=== PATIENT | female | born 1975 | race Caucasian/White ===

== ENCOUNTER 2017-03-21 18:08 | Inpatient (IN) | payer MEDICAID, OTHER ==
[~2017-03-21] VITALS: Ht 162.6 cm; Wt 82.1 kg
[~2017-03-21 18:08] MED LIST: RISP3 PO; RISPC50 IM
[2017-03-21 18:47] LABS: BASOPHILS % (AUTO) 0.4 % (0.0-2.0); EOSINOPHILS % (AUTO) 1.9 % (1.0-6.0); HEMATOCRIT 39.9 % (36-46); HEMOGLOBIN 13.6 g/dL (12.0-16.0); LYMPHOCYTES # (AUTO) 2.5 K/uL (1.0-4.8); LYMPHOCYTES % (AUTO) 22.5 % (22.0-44.0); MEAN CORPUSCULAR HEMOGLOBIN 32.4 pg (26.0-34.0); MEAN CORPUSCULAR HGB CONC 33.9 G/dL (31.0-37.0); MEAN CORPUSCULAR VOLUME 96 fL (80-100); MONOCYTES # (AUTO) 0.8 K/uL (0.1-1.0); MONOCYTES % (AUTO) 7.4 % (2.0-9.0); NEUTROPHILS # (AUTO) 7.5 K/uL (1.8-7.7); NEUTROPHILS % (AUTO) 67.8 % (40.0-70.0); PLATELET COUNT (AUTO) 343 K/uL (150-450); RED BLOOD CELL COUNT(AUTO) 4.18 MIL/uL (4.00-5.20); RED CELL DISTRIBUTION WIDTH 12.3 % (11.5-14.5)
[2017-03-21 18:56] LABS: CARBON DIOXIDE 24 mmol/L (22-29); CHLORIDE 105 mmol/L (98-107); POTASSIUM 3.9 mmol/L (3.5-5.1); SODIUM SERUM 140 mmol/L (136-145)
[2017-03-21 18:57] LABS: ANION GAP 11 mmol/L (8-16); CALCIUM, TOTAL 8.5 mg/dL (8.8-10.5); CREATININE 0.79 mg/dL (0.60-1.30); GLOMERULAR FILTR. RATE CALC > 60 mL/min (>60); UREA NITROGEN, BLOOD 8 mg/dL (7-18)
[2017-03-21 19:03] LABS: ALANINE AMINOTRANSFERASE 21 U/L (12-78); ALBUMIN 3.6 g/dL (3.4-5.0); ASPARTATE AMINOTRANSFERASE 13 U/L (15-37); TOTAL PROTEIN, SERUM 7.5 g/dL (6.4-8.2)
[2017-03-21 19:16] LABS: BILIRUBIN,TOTAL 0.1 mg/dL (0.1-1.0)
[2017-03-21] MEDS ORDERED: MAG HYDROX/AL HYDROX/SIMETH ES 30 ML SUSPENSION UDCUP PO PRN (20:45)
[2017-03-21] MEDS ORDERED: HALOPERIDOL 5 MG TABLET PO PRN (20:45)
[2017-03-21] MEDS ORDERED: MAGNESIUM HYDROXIDE SUSPENSION 30 ML UDCUP PO PRN (20:45)
[2017-03-21 22:26] VITALS: BP 139/70
[2017-03-21] MEDS: LORazepam 2 MG TABLET PO PRN (22:51)
[2017-03-22 09:56] VITALS: BP 116/72
[2017-03-22 12:25] VITALS: BP 122/69
[2017-03-22] MEDS: ACETAMINOPHEN 325 MG TABLET PO PRN (12:25)
[2017-03-22] MEDS: LORazepam 2 MG TABLET PO PRN ×2 (12:25→21:07)
[2017-03-22 17:00] VITALS: BP 123/80
[2017-03-23] MEDS: LORazepam 2 MG TABLET PO PRN ×3 (07:53→20:00)
[2017-03-23 08:00] VITALS: BP 103/87
[2017-03-23] MEDS: ACETAMINOPHEN 325 MG TABLET PO PRN ×2 (08:00→13:46)
[2017-03-23] MEDS: RisperiDONE 3 MG TABLET PO SCH ×2 (08:29→16:37)
[2017-03-23 08:30] VITALS: BP 103/87
[2017-03-23 13:46] VITALS: BP 107/71
[2017-03-23 17:26] VITALS: BP 123/74
[2017-03-23] MEDS ORDERED: ONDANSETRON HCL 4 MG TABLET PO PRN (18:15)
[2017-03-24 08:02] VITALS: BP 94/64
[2017-03-24] MEDS: LORazepam 2 MG TABLET PO PRN ×3 (08:02→17:33)
[2017-03-24] MEDS: ESCITALOPRAM OXALATE 10 MG TABLET PO SCH (08:02)
[2017-03-24] MEDS: ACETAMINOPHEN 325 MG TABLET PO PRN ×2 (08:02→13:25)
[2017-03-24] MEDS: RisperiDONE 3 MG TABLET PO SCH ×2 (08:02→17:33)
[2017-03-24] MEDS ORDERED: RisperiDONE MICROSPHERES 50 MG/2 ML SYRINGE IM SCH (09:00)
[2017-03-24 13:25] VITALS: BP_SYST 92
[2017-03-24 18:30] VITALS: BP 96/79
[2017-03-25] MEDS: RisperiDONE 3 MG TABLET PO SCH ×2 (08:10→16:42)
[2017-03-25] MEDS: ESCITALOPRAM OXALATE 10 MG TABLET PO SCH (08:10)
[2017-03-25] MEDS: LORazepam 2 MG TABLET PO PRN ×2 (08:10→17:40)
[2017-03-25 08:11] VITALS: BP 112/65
[2017-03-25] MEDS: ACETAMINOPHEN 325 MG TABLET PO PRN ×2 (08:11→16:46)
[2017-03-25 09:11] VITALS: BP 105/70
[2017-03-25 16:46] VITALS: BP 125/80
[2017-03-25 17:07] VITALS: BP_SYST 118; BP_SYST 129; BP_DIAS 74; BP_DIAS 79
[2017-03-25] MEDS: ZOLPIDEM TARTRATE 10 MG TABLET PO PRN (20:14)
[2017-03-26] MEDS: RisperiDONE 3 MG TABLET PO SCH ×2 (09:11→16:12)
[2017-03-26] MEDS: ESCITALOPRAM OXALATE 10 MG TABLET PO SCH (09:13)
[2017-03-26 09:16] VITALS: BP 98/68
[2017-03-26] MEDS: ACETAMINOPHEN 325 MG TABLET PO PRN ×2 (09:16→17:45)
[2017-03-26] MEDS: LORazepam 2 MG TABLET PO PRN ×3 (09:54→20:14)
[2017-03-26 16:07] VITALS: BP 105/65
[2017-03-26 17:45] VITALS: BP 104/62
[2017-03-26] MEDS: ZOLPIDEM TARTRATE 10 MG TABLET PO PRN (21:11)
[2017-03-27] MEDS: RisperiDONE 3 MG TABLET PO SCH ×2 (08:55→16:17)
[2017-03-27] MEDS: ESCITALOPRAM OXALATE 10 MG TABLET PO SCH (08:55)
[2017-03-27] MEDS: LORazepam 2 MG TABLET PO PRN ×3 (08:56→23:47)
[2017-03-27 08:58] VITALS: BP 102/72
[2017-03-27] MEDS: ACETAMINOPHEN 325 MG TABLET PO PRN ×3 (08:58→23:46)
[2017-03-27 16:17] VITALS: BP 117/77
[2017-03-27] MEDS: ZOLPIDEM TARTRATE 10 MG TABLET PO PRN (20:28)
[2017-03-27 23:46] VITALS: BP 110/76
[2017-03-28] MEDS: RisperiDONE 3 MG TABLET PO SCH ×2 (09:03→16:23)
[2017-03-28] MEDS: ESCITALOPRAM OXALATE 10 MG TABLET PO SCH (09:03)
[2017-03-28 09:06] VITALS: BP 105/75
[2017-03-28] MEDS: ACETAMINOPHEN 325 MG TABLET PO PRN ×2 (09:06→18:25)
[2017-03-28] MEDS: LORazepam 2 MG TABLET PO PRN ×2 (09:06→16:23)
[2017-03-28 16:24] VITALS: BP 108/78
[2017-03-28 18:25] VITALS: BP 110/69
[2017-03-28 20:07] LABS: THYROID STIMULATING HORMONE 0.91 uIU/mL (0.36-3.74)
[2017-03-28] MEDS: ZOLPIDEM TARTRATE 10 MG TABLET PO PRN (20:13)
[2017-03-28 20:17] LABS: HEMOGLOBIN A1C 5.8 % (4.5-6.2)
[2017-03-29] MEDS: RisperiDONE 3 MG TABLET PO SCH ×2 (09:03→16:27)
[2017-03-29] MEDS: ESCITALOPRAM OXALATE 10 MG TABLET PO SCH (09:03)
[2017-03-29 09:04] VITALS: BP 110/67
[2017-03-29] MEDS: LORazepam 2 MG TABLET PO PRN ×2 (09:04→16:27)
[2017-03-29] MEDS: ACETAMINOPHEN 325 MG TABLET PO PRN (09:04)
[2017-03-29 16:58] VITALS: BP 112/62
[2017-03-29] MEDS: ZOLPIDEM TARTRATE 10 MG TABLET PO PRN (21:00)
[2017-03-30] MEDS: LORazepam 2 MG TABLET PO PRN ×2 (09:31→16:24)
[2017-03-30] MEDS: ESCITALOPRAM OXALATE 10 MG TABLET PO SCH (09:31)
[2017-03-30] MEDS: RisperiDONE 3 MG TABLET PO SCH ×2 (09:31→16:24)
[2017-03-30 09:32] VITALS: BP 107/58
[2017-03-30] MEDS: ACETAMINOPHEN 325 MG TABLET PO PRN (09:32)
[2017-03-30 16:22] VITALS: BP 104/65
[2017-03-31] MEDS: LORazepam 2 MG TABLET PO PRN ×2 (03:31→08:58)
[2017-03-31] MEDS ORDERED: ESCI10TA PO (08:54)
[2017-03-31] MEDS: RisperiDONE 3 MG TABLET PO SCH (08:57)
[2017-03-31] MEDS: ESCITALOPRAM OXALATE 10 MG TABLET PO SCH (08:57)
[2017-03-31 08:58] VITALS: BP 113/65
[2017-03-31] MEDS: ACETAMINOPHEN 325 MG TABLET PO PRN (08:58)
[2017-03-31 09:06] VITALS: BP 113/65
== END 2017-03-31 12:00 | disposition home or self-care (01) | DRG 750 ==
LOC: EMS 18:09 → 3EI 21:19
PROVIDERS: ADMIT Psychiatry & Neurology Psychiatry; ATTEND Psychiatry & Neurology Psychiatry
DX: F25.0 Schizoaffective disorder, bipolar type (principal); R45.851 Suicidal ideations; I47.1 Supraventricular tachycardia; E11.9 Type 2 diabetes mellitus without complications; E03.9 Hypothyroidism, unspecified; I34.1 Nonrheumatic mitral (valve) prolapse; S00.83XA Contusion of other part of head, initial encounter; Y04.2XXA Assault by strike against or bumped into by another person, initial encounter; F17.200 Nicotine dependence, unspecified, uncomplicated; R41.843 Psychomotor deficit; Z91.5 Personal history of self-harm; Y93.89 Activity, other specified; Y92.89 Other specified places as the place of occurrence of the external cause; Y99.8 Other external cause status; Z88.1 Allergy status to other antibiotic agents; Z88.5 Allergy status to narcotic agent; Z88.0 Allergy status to penicillin; Z88.8 Allergy status to other drugs, medicaments and biological substances; Z88.4 Allergy status to anesthetic agent; Z79.899 Other long term (current) drug therapy; Z90.49 Acquired absence of other specified parts of digestive tract
CPT/HCPCS: 70486; 83036; 84443; 99285; G0480; J2794; Q0162

== ENCOUNTER 2017-04-12 01:01 | Emergency (ER) | payer MEDICAID, OTHER ==
[~2017-04-12] VITALS: Ht 160 cm; Wt 82.0 kg
[~2017-04-12 01:01] MED LIST changes: +ESCI10TA PO
[2017-04-12 01:35] LABS: BASOPHILS % (AUTO) 0.3 % (0.0-2.0); EOSINOPHILS % (AUTO) 0.6 % (1.0-6.0); HEMATOCRIT 41.2 % (36-46); HEMOGLOBIN 13.8 g/dL (12.0-16.0); LYMPHOCYTES # (AUTO) 2.8 K/uL (1.0-4.8); LYMPHOCYTES % (AUTO) 18.7 % (22.0-44.0); MEAN CORPUSCULAR HEMOGLOBIN 32.1 pg (26.0-34.0); MEAN CORPUSCULAR HGB CONC 33.5 G/dL (31.0-37.0); MEAN CORPUSCULAR VOLUME 96 fL (80-100); MONOCYTES % (AUTO) 6.8 % (2.0-9.0); NEUTROPHILS # (AUTO) 10.9 K/uL (1.8-7.7); NEUTROPHILS % (AUTO) 73.6 % (40.0-70.0); PLATELET COUNT (AUTO) 433 K/uL (150-450); RED BLOOD CELL COUNT(AUTO) 4.31 MIL/uL (4.00-5.20); RED CELL DISTRIBUTION WIDTH 13.2 % (11.5-14.5); WHITE BLOOD COUNT (AUTO) 14.8 K/uL (4.5-11.0)
[2017-04-12 01:49] LABS: ANION GAP 9 mmol/L (8-16); CALCIUM, TOTAL 9.2 mg/dL (8.8-10.5); CARBON DIOXIDE 28 mmol/L (22-29); CHLORIDE 101 mmol/L (98-107); CREATININE 0.75 mg/dL (0.60-1.30); GLOMERULAR FILTR. RATE CALC > 60 mL/min (>60); SODIUM SERUM 138 mmol/L (136-145); UREA NITROGEN, BLOOD 9 mg/dL (7-18)
[2017-04-12 01:55] LABS: ALANINE AMINOTRANSFERASE 28 U/L (12-78); ALBUMIN 4.1 g/dL (3.4-5.0); ASPARTATE AMINOTRANSFERASE 18 U/L (15-37); BILIRUBIN,TOTAL 0.4 mg/dL (0.1-1.0); TOTAL PROTEIN, SERUM 8.1 g/dL (6.4-8.2)
[2017-04-12 03:26] VITALS: BP 119/80
== END 2017-04-12 04:22 | disposition home or self-care (01) ==
LOC: EMS 01:02
DX: F25.9 Schizoaffective disorder, unspecified (principal); F32.9 Major depressive disorder, single episode, unspecified; E03.9 Hypothyroidism, unspecified; Z88.0 Allergy status to penicillin; Z88.1 Allergy status to other antibiotic agents; Z88.8 Allergy status to other drugs, medicaments and biological substances; Z88.5 Allergy status to narcotic agent
CPT/HCPCS: 36415; 80053; 80307; 84703; 85025; 99284; G0480

== ENCOUNTER 2017-04-17 01:28 | Emergency (ER) | payer OTHER ==
[~2017-04-17] VITALS: Ht 160 cm; Wt 77.0 kg
[~2017-04-17 01:28] MED LIST changes: -RISPC50 IM
[2017-04-17 02:15] LABS: BASOPHILS # (AUTO) 0.03 K/uL (0.00-0.20); BASOPHILS % (AUTO) 0.4 % (0.0-2.0); EOSINOPHILS % (AUTO) 3.53 % (1.0-6.0); HEMATOCRIT 37.4 % (36-46); HEMOGLOBIN 12.7 g/dL (12.0-16.0); LYMPHOCYTES # (AUTO) 2.4 K/uL (1.0-4.8); LYMPHOCYTES % (AUTO) 27.8 % (22.0-44.0); MEAN CORPUSCULAR HEMOGLOBIN 32.2 pg (26.0-34.0); MEAN CORPUSCULAR VOLUME 95 fL (80-100); MONOCYTES % (AUTO) 11.7 % (2.0-9.0); NEUTROPHILS # (AUTO) 4.8 K/uL (1.8-7.7); NEUTROPHILS % (AUTO) 56.7 % (40.0-70.0); PLATELET COUNT (AUTO) 320 K/uL (150-450); RED BLOOD CELL COUNT(AUTO) 3.95 MIL/uL (4.00-5.20); RED CELL DISTRIBUTION WIDTH 12.8 % (11.5-14.5); WHITE BLOOD COUNT (AUTO) 8.5 K/uL (4.5-11.0)
[2017-04-17 02:22] LABS: ANION GAP 7 mmol/L (8-16); CARBON DIOXIDE 30 mmol/L (22-29); CHLORIDE 102 mmol/L (98-107); CREATININE 0.66 mg/dL (0.60-1.30); GLOMERULAR FILTR. RATE CALC > 60 mL/min (>60); POTASSIUM 3.3 mmol/L (3.5-5.1); SODIUM SERUM 139 mmol/L (136-145); UREA NITROGEN, BLOOD 11 mg/dL (7-18)
[2017-04-17 02:29] LABS: ALANINE AMINOTRANSFERASE 37 U/L (12-78); ALBUMIN 3.9 g/dL (3.4-5.0); ASPARTATE AMINOTRANSFERASE 22 U/L (15-37); BILIRUBIN,TOTAL 0.6 mg/dL (0.1-1.0); TOTAL PROTEIN, SERUM 7.7 g/dL (6.4-8.2)
[2017-04-17 02:38] LABS: B-TYPE NATRIURETIC PEPTIDE < 5 pg/mL (0-100)
[2017-04-17 04:20] VITALS: BP 125/84
== END 2017-04-17 05:59 | disposition home or self-care (01) ==
LOC: EMS 01:29
DX: R60.0 Localized edema (principal); F25.9 Schizoaffective disorder, unspecified; F32.9 Major depressive disorder, single episode, unspecified; E03.9 Hypothyroidism, unspecified; F17.210 Nicotine dependence, cigarettes, uncomplicated; Z59.0 Homelessness; Z88.5 Allergy status to narcotic agent; Z88.0 Allergy status to penicillin; Z88.8 Allergy status to other drugs, medicaments and biological substances
CPT/HCPCS: 99284; 99406

== ENCOUNTER 2017-04-21 23:48 | Emergency (ER) | payer OTHER ==
[~2017-04-21] VITALS: Ht 160 cm; Wt 72.5 kg
[2017-04-22 03:00] VITALS: BP 129/88
== END 2017-04-22 04:47 | disposition home or self-care (01) ==
LOC: EMS 23:49
DX: R60.0 Localized edema (principal); F25.9 Schizoaffective disorder, unspecified; F15.10 Other stimulant abuse, uncomplicated; E03.9 Hypothyroidism, unspecified; F17.210 Nicotine dependence, cigarettes, uncomplicated; Z88.0 Allergy status to penicillin; Z88.1 Allergy status to other antibiotic agents; Z88.5 Allergy status to narcotic agent; Z88.8 Allergy status to other drugs, medicaments and biological substances
CPT/HCPCS: 81025; 99283

== ENCOUNTER 2017-08-12 00:16 | Emergency (ER) | payer OTHER ==
[~2017-08-12] VITALS: Ht 165.1 cm; Wt 64.0 kg
[2017-08-12 01:08] LABS: BASOPHILS % (AUTO) 0.5 % (0.0-2.0); EOSINOPHILS % (AUTO) 1.3 % (1.0-6.0); HEMATOCRIT 40.8 % (36-46); HEMOGLOBIN 13.9 g/dL (12.0-16.0); LYMPHOCYTES # (AUTO) 2.7 K/uL (1.0-4.8); LYMPHOCYTES % (AUTO) 26.7 % (22.0-44.0); MEAN CORPUSCULAR HEMOGLOBIN 31.6 pg (26.0-34.0); MEAN CORPUSCULAR HGB CONC 33.9 G/dL (31.0-37.0); MEAN CORPUSCULAR VOLUME 93 fL (80-100); MONOCYTES # (AUTO) 0.7 K/uL (0.1-1.0); MONOCYTES % (AUTO) 7.2 % (2.0-9.0); NEUTROPHILS # (AUTO) 6.4 K/uL (1.8-7.7); NEUTROPHILS % (AUTO) 64.3 % (40.0-70.0); PLATELET COUNT (AUTO) 388 K/uL (150-450); RED BLOOD CELL COUNT(AUTO) 4.39 MIL/uL (4.00-5.20); RED CELL DISTRIBUTION WIDTH 12.7 % (11.5-14.5)
[2017-08-12 01:18] LABS: ANION GAP 7 mmol/L (8-16); CALCIUM, TOTAL 8.9 mg/dL (8.8-10.5); CARBON DIOXIDE 29 mmol/L (22-29); CHLORIDE 105 mmol/L (98-107); CREATININE 0.57 mg/dL (0.60-1.30); GLOMERULAR FILTR. RATE CALC > 60 mL/min (>60); GLUCOSE,RANDOM 100 mg/dL (70-110); POTASSIUM 3.6 mmol/L (3.5-5.1); SODIUM SERUM 141 mmol/L (136-145); UREA NITROGEN, BLOOD 10 mg/dL (7-18)
[2017-08-12 01:24] LABS: ALANINE AMINOTRANSFERASE 31 U/L (12-78); ALBUMIN 3.8 g/dL (3.4-5.0); ALKALINE PHOSPHATASE 80 U/L (46-116); ASPARTATE AMINOTRANSFERASE 24 U/L (15-37); BILIRUBIN,TOTAL 0.2 mg/dL (0.1-1.0); TOTAL PROTEIN, SERUM 7.3 g/dL (6.4-8.2)
[2017-08-12 03:40] VITALS: BP 135/87
== END 2017-08-12 04:30 | disposition left against medical advice (07) ==
LOC: EMS 00:18
DX: Z76.0 Encounter for issue of repeat prescription (principal); E03.9 Hypothyroidism, unspecified; F17.210 Nicotine dependence, cigarettes, uncomplicated; Z53.21 Procedure and treatment not carried out due to patient leaving prior to being seen by health care provider
CPT/HCPCS: 36415; 80053; 84703; 85025; G0480

== ENCOUNTER 2017-08-23 23:38 | Emergency (ER) | payer MEDICAID, OTHER ==
[~2017-08-23] VITALS: Ht 160 cm; Wt 59.1 kg
[~2017-08-23 23:38] MED LIST changes: +DIVA500T52 PO; -ESCI10TA PO; +FLUO-191 PO; +NALT50TA PO; +OLAN10TA22 PO; -RISP3 PO
[2017-08-24 00:29] VITALS: BP 114/71
== END 2017-08-24 00:48 | disposition home or self-care (01) ==
LOC: EMS 23:40
DX: F25.9 Schizoaffective disorder, unspecified (principal); F32.9 Major depressive disorder, single episode, unspecified; E03.9 Hypothyroidism, unspecified; I47.1 Supraventricular tachycardia; F17.210 Nicotine dependence, cigarettes, uncomplicated; Z88.0 Allergy status to penicillin; Z88.1 Allergy status to other antibiotic agents; Z88.5 Allergy status to narcotic agent; Z79.899 Other long term (current) drug therapy
CPT/HCPCS: 99284

== ENCOUNTER 2017-08-25 06:29 | Emergency (ER) | payer OTHER ==
[~2017-08-25] VITALS: Ht 162.6 cm; Wt 66.0 kg
[2017-08-25 08:46] LABS: BASOPHILS % (AUTO) 0.2 % (0.0-2.0); EOSINOPHILS % (AUTO) 1.1 % (1.0-6.0); HEMATOCRIT 37.1 % (36-46); HEMOGLOBIN 12.6 g/dL (12.0-16.0); LYMPHOCYTES # (AUTO) 2.7 K/uL (1.0-4.8); MEAN CORPUSCULAR HEMOGLOBIN 31.2 pg (26.0-34.0); MEAN CORPUSCULAR HGB CONC 33.9 G/dL (31.0-37.0); MEAN CORPUSCULAR VOLUME 92 fL (80-100); MONOCYTES # (AUTO) 0.9 K/uL (0.1-1.0); MONOCYTES % (AUTO) 8.3 % (2.0-9.0); NEUTROPHILS # (AUTO) 7.3 K/uL (1.8-7.7); NEUTROPHILS % (AUTO) 66.4 % (40.0-70.0); PLATELET COUNT (AUTO) 344 K/uL (150-450); RED BLOOD CELL COUNT(AUTO) 4.03 MIL/uL (4.00-5.20); RED CELL DISTRIBUTION WIDTH 12.4 % (11.5-14.5)
[2017-08-25 09:06] LABS: ANION GAP 10 mmol/L (8-16); CALCIUM, TOTAL 8.7 mg/dL (8.8-10.5); CARBON DIOXIDE 28 mmol/L (22-29); CHLORIDE 104 mmol/L (98-107); CREATININE 0.55 mg/dL (0.60-1.30); GLOMERULAR FILTR. RATE CALC > 60 mL/min (>60); GLUCOSE,RANDOM 97 mg/dL (70-110); POTASSIUM 3.7 mmol/L (3.5-5.1); SODIUM SERUM 142 mmol/L (136-145); UREA NITROGEN, BLOOD 13 mg/dL (7-18)
[2017-08-25 09:11] LABS: ALANINE AMINOTRANSFERASE 41 U/L (12-78); ALBUMIN 3.7 g/dL (3.4-5.0); ALKALINE PHOSPHATASE 80 U/L (46-116); ASPARTATE AMINOTRANSFERASE 33 U/L (15-37); BILIRUBIN,TOTAL 0.4 mg/dL (0.1-1.0); TOTAL PROTEIN, SERUM 7.1 g/dL (6.4-8.2); VALPROIC ACID 7 mcg/mL (50-100)
[2017-08-25] MEDS ORDERED: LORazepam 2 MG TABLET PO ONE (10:45)
[2017-08-25 10:47] VITALS: BP 122/84
[2017-08-25] MEDS ORDERED: LORazepam 2 MG TABLET PO PRN (11:15)
[2017-08-25] MEDS ORDERED: ZOLPIDEM TARTRATE 10 MG TABLET PO PRN (11:15)
[2017-08-25] MEDS ORDERED: OLANZapine 5 MG RAPDIS TABLET PO PRN (11:15)
== END 2017-08-25 12:17 | disposition left against medical advice (07) ==
LOC: EMS 06:30
DX: F25.9 Schizoaffective disorder, unspecified (principal); F32.9 Major depressive disorder, single episode, unspecified; E03.9 Hypothyroidism, unspecified; I47.1 Supraventricular tachycardia; Z59.0 Homelessness; Z90.49 Acquired absence of other specified parts of digestive tract; Z88.0 Allergy status to penicillin; Z88.5 Allergy status to narcotic agent; Z88.8 Allergy status to other drugs, medicaments and biological substances; Z79.899 Other long term (current) drug therapy
CPT/HCPCS: 36415; 80053; 80164; 85025; 99285; G0480

== ENCOUNTER 2017-08-30 01:28 | Emergency (ER) | payer OTHER ==
[~2017-08-30] VITALS: Ht 160 cm; Wt 126.0 kg
[2017-08-30] MEDS ORDERED: DiphenhydrAMINE HCL 50 MG/ML VIAL IM ONE (02:30)
[2017-08-30] MEDS ORDERED: LORazepam 2 MG/ML VIAL IM ONE (02:30)
[2017-08-30 02:33] LABS: BASOPHILS % (AUTO) 0.5 % (0.0-2.0); EOSINOPHILS % (AUTO) 1.8 % (1.0-6.0); HEMOGLOBIN 12.6 g/dL (12.0-16.0); LYMPHOCYTES # (AUTO) 2.7 K/uL (1.0-4.8); LYMPHOCYTES % (AUTO) 26.9 % (22.0-44.0); MEAN CORPUSCULAR HEMOGLOBIN 31.4 pg (26.0-34.0); MEAN CORPUSCULAR HGB CONC 34.1 G/dL (31.0-37.0); MEAN CORPUSCULAR VOLUME 92 fL (80-100); MONOCYTES % (AUTO) 9.5 % (2.0-9.0); NEUTROPHILS # (AUTO) 6.2 K/uL (1.8-7.7); NEUTROPHILS % (AUTO) 61.3 % (40.0-70.0); PLATELET COUNT (AUTO) 374 K/uL (150-450); RED BLOOD CELL COUNT(AUTO) 4.01 MIL/uL (4.00-5.20); RED CELL DISTRIBUTION WIDTH 12.8 % (11.5-14.5)
[2017-08-30 02:36] LABS: ANION GAP 10 mmol/L (8-16); CALCIUM, TOTAL 8.9 mg/dL (8.8-10.5); CARBON DIOXIDE 29 mmol/L (22-29); CHLORIDE 102 mmol/L (98-107); CREATININE 0.61 mg/dL (0.60-1.30); GLOMERULAR FILTR. RATE CALC > 60 mL/min (>60); GLUCOSE,RANDOM 94 mg/dL (70-110); POTASSIUM 3.1 mmol/L (3.5-5.1); SODIUM SERUM 141 mmol/L (136-145); UREA NITROGEN, BLOOD 8 mg/dL (7-18)
[2017-08-30 02:43] LABS: ALANINE AMINOTRANSFERASE 40 U/L (12-78); ALBUMIN 3.9 g/dL (3.4-5.0); ALKALINE PHOSPHATASE 78 U/L (46-116); ASPARTATE AMINOTRANSFERASE 25 U/L (15-37); BILIRUBIN,TOTAL 0.3 mg/dL (0.1-1.0); TOTAL PROTEIN, SERUM 7.4 g/dL (6.4-8.2)
[2017-08-30 03:09] VITALS: BP 126/64
[2017-08-30 03:36] LABS: AMPHET/METH SCREEN,URINE POSITIVE (NEGATIVE); BARBITURATE SCREEN, URINE NEGATIVE (NEGATIVE); BENZODIAZEPINES SCREEN,URINE NEGATIVE (NEGATIVE); CANNABINOID SCREEN,URINE NEGATIVE (NEGATIVE); COCAINE SCREEN,URINE NEGATIVE (NEGATIVE); METHADONE SCREEN, URINE NEGATIVE (NEGATIVE); OPIATE SCREEN,URINE NEGATIVE (NEGATIVE); PHENCYCLIDINE SCREEN,URINE NEGATIVE (NEGATIVE)
== END 2017-08-30 03:54 | disposition home or self-care (01) ==
LOC: EMS 01:33
DX: F25.9 Schizoaffective disorder, unspecified (principal); F32.9 Major depressive disorder, single episode, unspecified; E03.9 Hypothyroidism, unspecified; F17.210 Nicotine dependence, cigarettes, uncomplicated; Z88.0 Allergy status to penicillin; Z88.1 Allergy status to other antibiotic agents; Z88.5 Allergy status to narcotic agent; Z88.8 Allergy status to other drugs, medicaments and biological substances
CPT/HCPCS: 36415; 80053; 80307; 85025; 96372; 99284; G0480; J1200; J2060; J3230

== ENCOUNTER 2017-11-02 20:51 | Emergency (ER) | payer OTHER ==
[~2017-11-02] VITALS: Ht 160 cm; Wt 68.6 kg
[2017-11-02 21:09] LABS: GLUCOSE,POINT OF CARE 83 MG/DL (70-110)
[2017-11-02 21:23] LABS: BASOPHILS % (AUTO) 0.3 % (0.0-2.0); EOSINOPHILS % (AUTO) 2.2 % (1.0-6.0); HEMATOCRIT 36.1 % (36-46); HEMOGLOBIN 12.5 g/dL (12.0-16.0); LYMPHOCYTES # (AUTO) 3.5 K/uL (1.0-4.8); LYMPHOCYTES % (AUTO) 36.7 % (22.0-44.0); MEAN CORPUSCULAR HEMOGLOBIN 32.3 pg (26.0-34.0); MEAN CORPUSCULAR HGB CONC 34.7 G/dL (31.0-37.0); MEAN CORPUSCULAR VOLUME 93 fL (80-100); MONOCYTES # (AUTO) 0.7 K/uL (0.1-1.0); MONOCYTES % (AUTO) 7.7 % (2.0-9.0); NEUTROPHILS # (AUTO) 5.1 K/uL (1.8-7.7); NEUTROPHILS % (AUTO) 53.1 % (40.0-70.0); PLATELET COUNT (AUTO) 383 K/uL (150-450); RED BLOOD CELL COUNT(AUTO) 3.88 MIL/uL (4.00-5.20); RED CELL DISTRIBUTION WIDTH 12.6 % (11.5-14.5)
[2017-11-02 21:34] LABS: ANION GAP 10 mmol/L (8-16); CALCIUM, TOTAL 8.8 mg/dL (8.8-10.5); CARBON DIOXIDE 26 mmol/L (22-29); CHLORIDE 103 mmol/L (98-107); CREATININE 0.72 mg/dL (0.60-1.30); GLOMERULAR FILTR. RATE CALC > 60 mL/min (>60); GLUCOSE,RANDOM 88 mg/dL (70-110); POTASSIUM 3.7 mmol/L (3.5-5.1); SODIUM SERUM 139 mmol/L (136-145); UREA NITROGEN, BLOOD 14 mg/dL (7-18)
[2017-11-02 21:40] LABS: ALANINE AMINOTRANSFERASE 23 U/L (12-78); ALBUMIN 3.6 g/dL (3.4-5.0); ALKALINE PHOSPHATASE 72 U/L (46-116); ASPARTATE AMINOTRANSFERASE 15 U/L (15-37); BILIRUBIN,TOTAL 0.3 mg/dL (0.1-1.0); TOTAL PROTEIN, SERUM 7.4 g/dL (6.4-8.2)
[2017-11-02 21:50] LABS: AMPHET/METH SCREEN,URINE NEGATIVE (NEGATIVE); BARBITURATE SCREEN, URINE NEGATIVE (NEGATIVE); BENZODIAZEPINES SCREEN,URINE NEGATIVE (NEGATIVE); CANNABINOID SCREEN,URINE NEGATIVE (NEGATIVE); COCAINE SCREEN,URINE NEGATIVE (NEGATIVE); METHADONE SCREEN, URINE NEGATIVE (NEGATIVE); OPIATE SCREEN,URINE NEGATIVE (NEGATIVE)
[2017-11-02 21:52] LABS: PHENCYCLIDINE SCREEN,URINE NEGATIVE (NEGATIVE)
[2017-11-02 22:20] VITALS: BP 116/63
== END 2017-11-02 23:17 | disposition left against medical advice (07) ==
LOC: EMS 20:52
DX: Z53.21 Procedure and treatment not carried out due to patient leaving prior to being seen by health care provider (principal)
CPT/HCPCS: 36415; 80053; 80307; 82962; 85025; G0480

== ENCOUNTER 2017-11-05 21:36 | Emergency (ER) | payer OTHER ==
[~2017-11-05] VITALS: Ht 170.2 cm; Wt 86.4 kg
[2017-11-05 21:42] VITALS: BP 126/77
[2017-11-05 22:24] LABS: BASOPHILS % (AUTO) 0.6 % (0.0-2.0); EOSINOPHILS % (AUTO) 4.5 % (1.0-6.0); HEMOGLOBIN 12.6 g/dL (12.0-16.0); MEAN CORPUSCULAR HEMOGLOBIN 31.9 pg (26.0-34.0); MEAN CORPUSCULAR HGB CONC 34.1 G/dL (31.0-37.0); MEAN CORPUSCULAR VOLUME 93 fL (80-100); MONOCYTES # (AUTO) 0.7 K/uL (0.1-1.0); MONOCYTES % (AUTO) 9.2 % (2.0-9.0); NEUTROPHILS # (AUTO) 3.9 K/uL (1.8-7.7); NEUTROPHILS % (AUTO) 48.7 % (40.0-70.0); PLATELET COUNT (AUTO) 379 K/uL (150-450); RED BLOOD CELL COUNT(AUTO) 3.96 MIL/uL (4.00-5.20); RED CELL DISTRIBUTION WIDTH 12.7 % (11.5-14.5)
[2017-11-05 22:38] LABS: ANION GAP 9 mmol/L (8-16); CALCIUM, TOTAL 8.9 mg/dL (8.8-10.5); CARBON DIOXIDE 26 mmol/L (22-29); CHLORIDE 104 mmol/L (98-107); CREATININE 0.83 mg/dL (0.60-1.30); GLOMERULAR FILTR. RATE CALC > 60 mL/min (>60); GLUCOSE,RANDOM 108 mg/dL (70-110); POTASSIUM 3.4 mmol/L (3.5-5.1); SODIUM SERUM 139 mmol/L (136-145); UREA NITROGEN, BLOOD 15 mg/dL (7-18)
[2017-11-05 22:44] LABS: ALANINE AMINOTRANSFERASE 76 U/L (12-78); ALBUMIN 3.9 g/dL (3.4-5.0); ALKALINE PHOSPHATASE 71 U/L (46-116); ASPARTATE AMINOTRANSFERASE 40 U/L (15-37); BILIRUBIN,TOTAL 0.4 mg/dL (0.1-1.0); TOTAL PROTEIN, SERUM 7.7 g/dL (6.4-8.2); VALPROIC ACID 6 mcg/mL (50-100)
== END 2017-11-06 01:34 | disposition left against medical advice (07) ==
LOC: EMS 21:39
DX: Z53.21 Procedure and treatment not carried out due to patient leaving prior to being seen by health care provider (principal)
CPT/HCPCS: 36415; 80053; 80164; 84703; 85025; G0480

== ENCOUNTER 2017-11-24 06:30 | Emergency (ER) | payer OTHER ==
[~2017-11-24] VITALS: Ht 160 cm; Wt 72.7 kg
[2017-11-24 06:52] LABS: GLUCOSE,POINT OF CARE 106 MG/DL (70-110)
[2017-11-24] MEDS ORDERED: SODIUM CHLORIDE 0.9% 1,000 ML IV ONE (08:00)
[2017-11-24] MEDS ORDERED: KETOROLAC TROMETHAMINE 30 MG/ML VIAL IVP ONE (08:00)
[2017-11-24] MEDS ORDERED: METOCLOPRAMIDE HCL 5 MG/ML 2 ML VIAL IVP ONE (08:00)
[2017-11-24 08:16] LABS: AMPHET/METH SCREEN,URINE NEGATIVE (NEGATIVE); BARBITURATE SCREEN, URINE NEGATIVE (NEGATIVE); BENZODIAZEPINES SCREEN,URINE NEGATIVE (NEGATIVE); CANNABINOID SCREEN,URINE NEGATIVE (NEGATIVE); COCAINE SCREEN,URINE NEGATIVE (NEGATIVE); METHADONE SCREEN, URINE NEGATIVE (NEGATIVE); OPIATE SCREEN,URINE NEGATIVE (NEGATIVE)
[2017-11-24 08:23] LABS: PHENCYCLIDINE SCREEN,URINE NEGATIVE (NEGATIVE)
[2017-11-24] MEDS ORDERED: ASPIRIN 325 MG EC TABLET PO ONE (09:30)
[2017-11-24 10:07] VITALS: BP 109/78
== END 2017-11-24 10:17 | disposition home or self-care (01) ==
LOC: EMS 06:31
DX: G43.909 Migraine, unspecified, not intractable, without status migrainosus (principal); F25.9 Schizoaffective disorder, unspecified; E11.9 Type 2 diabetes mellitus without complications; E03.9 Hypothyroidism, unspecified; F32.9 Major depressive disorder, single episode, unspecified; I50.9 Heart failure, unspecified; F17.210 Nicotine dependence, cigarettes, uncomplicated; Z59.0 Homelessness; Z88.1 Allergy status to other antibiotic agents; Z88.5 Allergy status to narcotic agent; Z79.899 Other long term (current) drug therapy; Z88.8 Allergy status to other drugs, medicaments and biological substances
CPT/HCPCS: 80307; 81025; 82962; 96361; 96374; 96375; 99284; J1885; J2765; J7030

== ENCOUNTER 2017-11-24 14:36 | Emergency (ER) | payer OTHER ==
[~2017-11-24] VITALS: Ht 160 cm; Wt 72.7 kg
[2017-11-24 15:03] LABS: GLUCOSE,POINT OF CARE 85 MG/DL (70-110)
[2017-11-24] MEDS ORDERED: SUMAtriptan SUCCINATE 6 MG/0.5 ML VIAL SQ ONE (15:45)
[2017-11-24 16:10] LABS: BASOPHILS % (AUTO) 0.7 % (0.0-2.0); EOSINOPHILS % (AUTO) 1.1 % (1.0-6.0); HEMATOCRIT 35.3 % (36-46); HEMOGLOBIN 12.2 g/dL (12.0-16.0); LYMPHOCYTES # (AUTO) 2.4 K/uL (1.0-4.8); LYMPHOCYTES % (AUTO) 25.8 % (22.0-44.0); MEAN CORPUSCULAR HEMOGLOBIN 31.8 pg (26.0-34.0); MEAN CORPUSCULAR HGB CONC 34.5 G/dL (31.0-37.0); MEAN CORPUSCULAR VOLUME 92 fL (80-100); MONOCYTES # (AUTO) 0.7 K/uL (0.1-1.0); MONOCYTES % (AUTO) 7.9 % (2.0-9.0); NEUTROPHILS # (AUTO) 5.9 K/uL (1.8-7.7); NEUTROPHILS % (AUTO) 64.5 % (40.0-70.0); PLATELET COUNT (AUTO) 379 K/uL (150-450); RED BLOOD CELL COUNT(AUTO) 3.82 MIL/uL (4.00-5.20); RED CELL DISTRIBUTION WIDTH 12.7 % (11.5-14.5)
[2017-11-24 16:53] LABS: ANION GAP 8 mmol/L (8-16); CALCIUM, TOTAL 8.6 mg/dL (8.8-10.5); CARBON DIOXIDE 27 mmol/L (22-29); CHLORIDE 105 mmol/L (98-107); CREATININE 0.61 mg/dL (0.60-1.30); GLOMERULAR FILTR. RATE CALC > 60 mL/min (>60); GLUCOSE,RANDOM 79 mg/dL (70-110); POTASSIUM 3.5 mmol/L (3.5-5.1); SODIUM SERUM 140 mmol/L (136-145); UREA NITROGEN, BLOOD 11 mg/dL (7-18)
[2017-11-24 16:59] LABS: ALANINE AMINOTRANSFERASE 29 U/L (12-78); ALBUMIN 3.9 g/dL (3.4-5.0); ALKALINE PHOSPHATASE 65 U/L (46-116); ASPARTATE AMINOTRANSFERASE 18 U/L (15-37); BILIRUBIN,TOTAL 0.4 mg/dL (0.1-1.0); TOTAL PROTEIN, SERUM 7.6 g/dL (6.4-8.2)
[2017-11-24 18:11] VITALS: BP 110/51
== END 2017-11-24 18:41 | disposition home or self-care (01) ==
LOC: EMS 14:37
DX: G43.909 Migraine, unspecified, not intractable, without status migrainosus (principal); E03.9 Hypothyroidism, unspecified; E11.9 Type 2 diabetes mellitus without complications; F20.9 Schizophrenia, unspecified; F32.9 Major depressive disorder, single episode, unspecified; I47.1 Supraventricular tachycardia; I50.9 Heart failure, unspecified; Z59.0 Homelessness; Z88.0 Allergy status to penicillin; Z88.5 Allergy status to narcotic agent; Z79.899 Other long term (current) drug therapy; Z88.8 Allergy status to other drugs, medicaments and biological substances
CPT/HCPCS: 36415; 70450; 80053; 82962; 84703; 85025; 96372; 99285; J3030

== ENCOUNTER 2018-03-26 19:35 | Emergency (ER) | payer OTHER ==
[~2018-03-26] VITALS: Ht 160 cm; Wt 37.2 kg
[2018-03-26] MEDS ORDERED: SODIUM CHLORIDE 0.9% 1,000 ML IV ONE (21:45)
[2018-03-26] MEDS ORDERED: ONDANSETRON HCL 4 MG/2 ML VIAL IVP ONE (21:45)
[2018-03-26] MEDS ORDERED: KETOROLAC TROMETHAMINE 30 MG/ML VIAL IVP ONE (21:45)
[2018-03-26 22:34] LABS: BASOPHILS % (AUTO) 0.4 % (0.0-2.0); EOSINOPHILS % (AUTO) 0.2 % (1.0-6.0); HEMATOCRIT 35.8 % (36-46); HEMOGLOBIN 11.9 g/dL (12.0-16.0); LYMPHOCYTES # (AUTO) 1.8 K/uL (1.0-4.8); LYMPHOCYTES % (AUTO) 14.1 % (22.0-44.0); MEAN CORPUSCULAR HEMOGLOBIN 30.6 pg (26.0-34.0); MEAN CORPUSCULAR HGB CONC 33.2 G/dL (31.0-37.0); MEAN CORPUSCULAR VOLUME 92 fL (80-100); MONOCYTES # (AUTO) 0.6 K/uL (0.1-1.0); NEUTROPHILS # (AUTO) 10.3 K/uL (1.8-7.7); NEUTROPHILS % (AUTO) 80.3 % (40.0-70.0); PLATELET COUNT (AUTO) 366 K/uL (150-450); RED BLOOD CELL COUNT(AUTO) 3.89 MIL/uL (4.00-5.20); RED CELL DISTRIBUTION WIDTH 13.9 % (11.5-14.5)
[2018-03-26 22:45] LABS: PROTHROMBIN TIME 10.1 SEC (9.4-11.6)
[2018-03-26 22:46] LABS: ANION GAP 10 mmol/L (8-16); CALCIUM, TOTAL 8.9 mg/dL (8.8-10.5); CARBON DIOXIDE 27 mmol/L (22-29); CHLORIDE 103 mmol/L (98-107); CREATININE 0.64 mg/dL (0.60-1.30); GLOMERULAR FILTR. RATE CALC > 60 mL/min (>60); GLUCOSE,RANDOM 127 mg/dL (70-110); POTASSIUM 3.7 mmol/L (3.5-5.1); SODIUM SERUM 140 mmol/L (136-145); UREA NITROGEN, BLOOD 12 mg/dL (7-18)
[2018-03-26 22:51] LABS: ALANINE AMINOTRANSFERASE 22 U/L (12-78); ALBUMIN 3.5 g/dL (3.4-5.0); ALKALINE PHOSPHATASE 68 U/L (46-116); ASPARTATE AMINOTRANSFERASE 18 U/L (15-37); BILIRUBIN,TOTAL 0.3 mg/dL (0.1-1.0); TOTAL PROTEIN, SERUM 7.5 g/dL (6.4-8.2)
[2018-03-26 23:46] LABS: ERYTHROCYTE SEDIMENTATION RATE 6 MM/HR (0-20)
[2018-03-27] MEDS ORDERED: SODIUM CHLORIDE 0.9% 1,000 ML IV ONE
[2018-03-27] MEDS ORDERED: MAGNESIUM SULFATE 2 GM/WATER 50 ML IV ONE
[2018-03-27 02:30] VITALS: BP 102/63
== END 2018-03-27 02:46 | disposition home or self-care (01) ==
LOC: EMS 19:36
DX: G43.909 Migraine, unspecified, not intractable, without status migrainosus (principal); I50.9 Heart failure, unspecified; F32.9 Major depressive disorder, single episode, unspecified; E11.9 Type 2 diabetes mellitus without complications; F20.9 Schizophrenia, unspecified; E03.9 Hypothyroidism, unspecified; F17.210 Nicotine dependence, cigarettes, uncomplicated; F12.90 Cannabis use, unspecified, uncomplicated; Z90.49 Acquired absence of other specified parts of digestive tract; Z59.0 Homelessness; Z88.0 Allergy status to penicillin; Z88.1 Allergy status to other antibiotic agents; Z88.5 Allergy status to narcotic agent; Z88.8 Allergy status to other drugs, medicaments and biological substances
CPT/HCPCS: 36415; 80053; 85025; 85610; 85651; 96365; 96366; 96375; 99285; J1885; J2405; J3475; J7030 ×2

== ENCOUNTER 2018-05-13 22:46 | Emergency (ER) | payer OTHER ==
[~2018-05-13] VITALS: Ht 160 cm; Wt 65.9 kg
[2018-05-13 22:54] VITALS: BP 132/85
[2018-05-13 23:03] LABS: GLUCOSE,POINT OF CARE 102 MG/DL (70-110)
== END 2018-05-14 02:06 | disposition left against medical advice (07) ==
LOC: EMS 22:47
DX: F20.9 Schizophrenia, unspecified (principal); I50.9 Heart failure, unspecified; E11.9 Type 2 diabetes mellitus without complications; E03.9 Hypothyroidism, unspecified; F32.9 Major depressive disorder, single episode, unspecified; F17.210 Nicotine dependence, cigarettes, uncomplicated; F12.90 Cannabis use, unspecified, uncomplicated; Z59.0 Homelessness; Z88.0 Allergy status to penicillin; Z88.5 Allergy status to narcotic agent; Z88.8 Allergy status to other drugs, medicaments and biological substances; Z88.1 Allergy status to other antibiotic agents

== ENCOUNTER 2018-05-25 21:49 | Emergency (ER) | payer MEDICAID, OTHER ==
[~2018-05-25] VITALS: Ht 175.3 cm; Wt 63.6 kg
[~2018-05-25 21:49] MED LIST changes: -NALT50TA PO; +OLAN10TA20 PO; -OLAN10TA22 PO
[2018-05-25 22:14] LABS: GLUCOSE,POINT OF CARE 104 MG/DL (70-110)
[2018-05-25 22:30] LABS: BASOPHILS % (AUTO) 0.3 % (0.0-2.0); EOSINOPHILS % (AUTO) 1.9 % (1.0-6.0); HEMATOCRIT 38.2 % (36-46); HEMOGLOBIN 12.9 g/dL (12.0-16.0); LYMPHOCYTES # (AUTO) 2.9 K/uL (1.0-4.8); LYMPHOCYTES % (AUTO) 29.8 % (22.0-44.0); MEAN CORPUSCULAR HEMOGLOBIN 31.2 pg (26.0-34.0); MEAN CORPUSCULAR HGB CONC 33.9 G/dL (31.0-37.0); MEAN CORPUSCULAR VOLUME 92 fL (80-100); MONOCYTES % (AUTO) 10.2 % (2.0-9.0); NEUTROPHILS # (AUTO) 5.6 K/uL (1.8-7.7); NEUTROPHILS % (AUTO) 57.8 % (40.0-70.0); PLATELET COUNT (AUTO) 350 K/uL (150-450); RED BLOOD CELL COUNT(AUTO) 4.14 MIL/uL (4.00-5.20); RED CELL DISTRIBUTION WIDTH 12.5 % (11.5-14.5)
[2018-05-25 22:42] LABS: ANION GAP 8 mmol/L (8-16); CALCIUM, TOTAL 8.4 mg/dL (8.8-10.5); CARBON DIOXIDE 30 mmol/L (22-29); CHLORIDE 101 mmol/L (98-107); CREATININE 0.82 mg/dL (0.60-1.30); GLOMERULAR FILTR. RATE CALC > 60 mL/min (>60); GLUCOSE,RANDOM 95 mg/dL (70-110); POTASSIUM 3.7 mmol/L (3.5-5.1); SODIUM SERUM 139 mmol/L (136-145); UREA NITROGEN, BLOOD 15 mg/dL (7-18)
[2018-05-25 22:56] LABS: ALANINE AMINOTRANSFERASE 26 U/L (12-78); ALBUMIN 3.8 g/dL (3.4-5.0); ALKALINE PHOSPHATASE 69 U/L (46-116); ASPARTATE AMINOTRANSFERASE 20 U/L (15-37); BILIRUBIN,TOTAL 0.3 mg/dL (0.1-1.0); HCG,QUANTITATIVE < 1 mIU/mL (0-6); TOTAL PROTEIN, SERUM 7.2 g/dL (6.4-8.2); VALPROIC ACID 14 mcg/mL (50-100)
[2018-05-25 23:02] LABS: AMPHET/METH SCREEN,URINE NEGATIVE (NEGATIVE); BARBITURATE SCREEN, URINE NEGATIVE (NEGATIVE); BENZODIAZEPINES SCREEN,URINE NEGATIVE (NEGATIVE); CANNABINOID SCREEN,URINE NEGATIVE (NEGATIVE); COCAINE SCREEN,URINE NEGATIVE (NEGATIVE); METHADONE SCREEN, URINE NEGATIVE (NEGATIVE); OPIATE SCREEN,URINE NEGATIVE (NEGATIVE)
[2018-05-25 23:03] LABS: PHENCYCLIDINE SCREEN,URINE NEGATIVE (NEGATIVE)
[2018-05-26 00:10] VITALS: BP 126/64
== END 2018-05-26 00:32 | disposition home or self-care (01) ==
LOC: EMS 21:50
DX: F25.0 Schizoaffective disorder, bipolar type (principal); E11.9 Type 2 diabetes mellitus without complications; E03.9 Hypothyroidism, unspecified; I50.9 Heart failure, unspecified; F12.90 Cannabis use, unspecified, uncomplicated; F17.210 Nicotine dependence, cigarettes, uncomplicated; Z59.0 Homelessness; Z91.14 Patient's other noncompliance with medication regimen; Z79.899 Other long term (current) drug therapy; Z88.0 Allergy status to penicillin; Z88.1 Allergy status to other antibiotic agents; Z88.5 Allergy status to narcotic agent; Z88.8 Allergy status to other drugs, medicaments and biological substances
CPT/HCPCS: 36415; 80053; 80164; 80307; 82962; 84702; 85025; 99284; G0480

== ENCOUNTER 2018-05-29 16:10 | Inpatient (IN) | payer MEDICAID ==
[~2018-05-29] VITALS: Ht 160 cm; Wt 79.0 kg
[2018-05-29] MEDS ORDERED: ZOLPIDEM TARTRATE 10 MG TABLET PO PRN (21:45)
[2018-05-29] MEDS ORDERED: PNEUMOCOCCAL VACCINE POLYVALENT 0.5 ML VIAL [PPSV23] IM ONE (21:45)
[2018-05-29 22:20] VITALS: BP 105/67
[2018-05-29] MEDS ORDERED: MAGNESIUM HYDROXIDE SUSPENSION 30 ML UDCUP PO PRN (23:00)
[2018-05-29] MEDS ORDERED: MAG HYDROX/AL HYDROX/SIMETH ES 30 ML SUSPENSION UDCUP PO PRN (23:00)
[2018-05-29] MEDS ORDERED: LOPERAMIDE HCL 2 MG CAPSULE PO PRN (23:00)
[2018-05-29] MEDS ORDERED: ONDANSETRON HCL 4 MG TABLET PO PRN (23:00)
[2018-05-29] MEDS ORDERED: DOCUSATE SODIUM 100 MG CAPSULE PO PRN (23:00)
[2018-05-29] MEDS ORDERED: ACETAMINOPHEN 325 MG TABLET PO PRN (23:00)
[2018-05-29] MEDS ORDERED: ALBUTEROL SULFATE HFA 90 MCG/PUFF 8 GM INHALER IH PRN (23:00)
[2018-05-29] MEDS ORDERED: PETROLATUM,WHITE 71 GM JELLY TP PRN (23:00)
[2018-05-29] MEDS ORDERED: NICOTINE 14 MG/24 HOUR PATCH TD PRN (23:00)
[2018-05-29] MEDS ORDERED: CloNIDine HCL 0.1 MG TABLET PO PRN (23:00)
[2018-05-29] MEDS ORDERED: GuaiFENesin/D-METHORPHAN [SUGAR-FREE] 200-20MG/10 ML SYRUP UDCUP PO PRN (23:00)
[2018-05-30 06:31] VITALS: BP 102/63
[2018-05-30 08:26] LABS: BASOPHILS % (AUTO) 0.6 % (0.0-2.0); EOSINOPHILS % (AUTO) 2.6 % (1.0-6.0); HEMATOCRIT 36.8 % (36-46); HEMOGLOBIN 12.4 g/dL (12.0-16.0); LYMPHOCYTES # (AUTO) 2.6 K/uL (1.0-4.8); LYMPHOCYTES % (AUTO) 43.7 % (22.0-44.0); MEAN CORPUSCULAR HEMOGLOBIN 31.4 pg (26.0-34.0); MEAN CORPUSCULAR HGB CONC 33.7 G/dL (31.0-37.0); MEAN CORPUSCULAR VOLUME 93 fL (80-100); MONOCYTES # (AUTO) 0.7 K/uL (0.1-1.0); MONOCYTES % (AUTO) 12.1 % (2.0-9.0); NEUTROPHILS # (AUTO) 2.5 K/uL (1.8-7.7); PLATELET COUNT (AUTO) 327 K/uL (150-450); RED BLOOD CELL COUNT(AUTO) 3.94 MIL/uL (4.00-5.20); RED CELL DISTRIBUTION WIDTH 12.7 % (11.5-14.5)
[2018-05-30 08:40] LABS: HEMOGLOBIN A1C 5.2 % (4.5-6.2)
[2018-05-30 09:22] VITALS: BP 108/72
[2018-05-30] MEDS: IBUPROFEN 400 MG TABLET PO PRN (09:22)
[2018-05-30 09:39] LABS: ALANINE AMINOTRANSFERASE 28 U/L (12-78); ALBUMIN 3.4 g/dL (3.4-5.0); ALKALINE PHOSPHATASE 58 U/L (46-116); ANION GAP 7 mmol/L (8-16); ASPARTATE AMINOTRANSFERASE 24 U/L (15-37); BILIRUBIN,TOTAL 0.2 mg/dL (0.1-1.0); CALCIUM, TOTAL 7.9 mg/dL (8.8-10.5); CARBON DIOXIDE 27 mmol/L (22-29); CHLORIDE 105 mmol/L (98-107); CHOL/HDL RATIO 3.6 (3.9-5.7); CHOLESTEROL 141 mg/dL (131-200); CREATININE 0.61 mg/dL (0.60-1.30); FREE T4 (FREE THYROXINE) 0.96 ng/dL (0.76-1.46); GLOMERULAR FILTR. RATE CALC > 60 mL/min (>60); GLUCOSE,RANDOM 89 mg/dL (70-110); HCG,QUANTITATIVE < 1 mIU/mL (0-6); HDL CHOLESTEROL 39 mg/dL (40-60); LDL CHOL (CALC.) 89 mg/dL (0-130); SODIUM SERUM 139 mmol/L (136-145); THYROID STIMULATING HORMONE 0.57 uIU/mL (0.36-3.74); TOTAL PROTEIN, SERUM 6.5 g/dL (6.4-8.2); TRIGLYCERIDES 67 mg/dL (15-150); UREA NITROGEN, BLOOD 15 mg/dL (7-18)
[2018-05-30] MEDS ORDERED: PERMETHRIN 1% 60 ML LOTION TP ONE (09:45)
[2018-05-30 11:18] VITALS: BP 101/55
[2018-05-30] MEDS: FLUoxetine HCL 20 MG CAPSULE PO SCH (12:14)
[2018-05-30 14:00] VITALS: BP 106/70
[2018-05-30] MEDS: LORazepam 2 MG TABLET PO PRN (14:03)
[2018-05-30 16:05] VITALS: BP 122/82
[2018-05-30] MEDS: DIVALPROEX SODIUM 500 MG ER TABLET PO SCH (20:10)
[2018-05-30] MEDS: OLANZapine 10 MG TABLET PO SCH (21:00)
[2018-05-31 06:25] VITALS: BP 108/75
[2018-05-31] MEDS: IBUPROFEN 400 MG TABLET PO PRN ×2 (06:25→17:18)
[2018-05-31 08:15] VITALS: BP 110/63
[2018-05-31] MEDS: FLUoxetine HCL 20 MG CAPSULE PO SCH (08:45)
[2018-05-31] MEDS: LORazepam 2 MG TABLET PO PRN (16:03)
[2018-05-31 16:06] VITALS: BP 109/70
[2018-05-31] MEDS: OLANZapine 10 MG TABLET PO SCH (20:30)
[2018-05-31] MEDS: DIVALPROEX SODIUM 500 MG ER TABLET PO SCH (20:31)
[2018-06-01] MEDS ORDERED: PERMETHRIN 1% 60 ML LOTION TP ONE (06:15)
[2018-06-01] MEDS: FLUoxetine HCL 20 MG CAPSULE PO SCH (09:00)
[2018-06-01 12:49] VITALS: BP 102/68
[2018-06-01 13:48] VITALS: BP 102/68
[2018-06-01] MEDS: LORazepam 2 MG TABLET PO PRN (13:48)
[2018-06-01] MEDS: IBUPROFEN 400 MG TABLET PO PRN (13:48)
[2018-06-01 16:04] VITALS: BP 109/69
[2018-06-01] MEDS: DIVALPROEX SODIUM 500 MG ER TABLET PO SCH (21:00)
[2018-06-01] MEDS: OLANZapine 10 MG TABLET PO SCH (21:11)
[2018-06-02 05:47] VITALS: BP 110/68
[2018-06-02] MEDS: FLUoxetine HCL 20 MG CAPSULE PO SCH (08:30)
[2018-06-02] MEDS: IBUPROFEN 400 MG TABLET PO PRN (10:03)
[2018-06-02] MEDS: LORazepam 2 MG TABLET PO PRN ×2 (14:15→20:24)
[2018-06-02 16:06] VITALS: BP 113/64
[2018-06-02] MEDS: QUEtiapine FUMARATE 100 MG TABLET PO PRN (16:56)
[2018-06-02] MEDS: DIVALPROEX SODIUM 500 MG ER TABLET PO SCH (20:24)
[2018-06-02] MEDS: OLANZapine 10 MG TABLET PO SCH (20:24)
[2018-06-03] MEDS: FLUoxetine HCL 20 MG CAPSULE PO SCH (08:05)
[2018-06-03] MEDS: QUEtiapine FUMARATE 100 MG TABLET PO PRN ×2 (12:23→19:41)
[2018-06-03 12:24] VITALS: BP 108/68
[2018-06-03] MEDS: IBUPROFEN 400 MG TABLET PO PRN (12:24)
[2018-06-03] MEDS: LORazepam 2 MG TABLET PO PRN (16:06)
[2018-06-03 16:10] VITALS: BP 110/66
[2018-06-03] MEDS: DIVALPROEX SODIUM 500 MG ER TABLET PO SCH (20:09)
[2018-06-03] MEDS: OLANZapine 10 MG TABLET PO SCH (20:09)
[2018-06-04 08:41] VITALS: BP 106/58
[2018-06-04] MEDS: FLUoxetine HCL 20 MG CAPSULE PO SCH (09:19)
[2018-06-04] MEDS: QUEtiapine FUMARATE 100 MG TABLET PO PRN ×2 (10:47→15:57)
[2018-06-04 14:50] VITALS: BP 117/62
[2018-06-04] MEDS: IBUPROFEN 400 MG TABLET PO PRN (14:54)
[2018-06-04] MEDS: LORazepam 2 MG TABLET PO PRN (15:58)
[2018-06-04 17:16] VITALS: BP 113/63
[2018-06-04] MEDS: OLANZapine 10 MG TABLET PO SCH (20:25)
[2018-06-04] MEDS: DIVALPROEX SODIUM 500 MG ER TABLET PO SCH (20:26)
[2018-06-05 08:09] VITALS: BP 118/69
[2018-06-05] MEDS: QUEtiapine FUMARATE 100 MG TABLET PO PRN ×2 (08:56→18:18)
[2018-06-05] MEDS: LORazepam 2 MG TABLET PO PRN ×2 (08:56→16:14)
[2018-06-05] MEDS: FLUoxetine HCL 20 MG CAPSULE PO SCH (08:56)
[2018-06-05 16:02] VITALS: BP 109/75
[2018-06-05] MEDS: OLANZapine 10 MG TABLET PO SCH (20:44)
[2018-06-05] MEDS: DIVALPROEX SODIUM 500 MG ER TABLET PO SCH (20:45)
[2018-06-06 06:09] VITALS: BP 104/63
[2018-06-06 08:14] VITALS: BP 109/60
[2018-06-06] MEDS: ESCITALOPRAM OXALATE 10 MG TABLET PO SCH (08:31)
[2018-06-06] MEDS: LORazepam 2 MG TABLET PO PRN ×2 (08:31→15:54)
[2018-06-06] MEDS: QUEtiapine FUMARATE 100 MG TABLET PO PRN (15:54)
[2018-06-06 16:30] VITALS: BP 110/81
[2018-06-06] MEDS: OLANZapine 10 MG TABLET PO SCH (20:18)
[2018-06-06] MEDS: DIVALPROEX SODIUM 500 MG ER TABLET PO SCH (20:18)
[2018-06-07 06:44] VITALS: BP 103/62
[2018-06-07] MEDS: ESCITALOPRAM OXALATE 10 MG TABLET PO SCH (08:42)
[2018-06-07 12:37] VITALS: BP 120/94
[2018-06-07] MEDS: IBUPROFEN 400 MG TABLET PO PRN (12:37)
[2018-06-07] MEDS: QUEtiapine FUMARATE 100 MG TABLET PO PRN ×2 (12:37→16:37)
[2018-06-07 16:03] VITALS: BP 116/63
[2018-06-07] MEDS: LORazepam 2 MG TABLET PO PRN (16:37)
[2018-06-07] MEDS: OLANZapine 10 MG TABLET PO SCH (20:33)
[2018-06-07] MEDS: DIVALPROEX SODIUM 500 MG ER TABLET PO SCH (20:33)
[2018-06-08 00:50] VITALS: BP 112/82
[2018-06-08 08:05] VITALS: BP 108/56
[2018-06-08] MEDS: ESCITALOPRAM OXALATE 10 MG TABLET PO SCH (08:35)
[2018-06-08 16:05] VITALS: BP 116/78
[2018-06-08] MEDS: QUEtiapine FUMARATE 100 MG TABLET PO PRN (17:55)
[2018-06-08] MEDS: DIVALPROEX SODIUM 500 MG ER TABLET PO SCH (20:01)
[2018-06-08] MEDS: OLANZapine 10 MG TABLET PO SCH (20:02)
[2018-06-09] MEDS: QUEtiapine FUMARATE 100 MG TABLET PO PRN ×2 (07:07→12:19)
[2018-06-09] MEDS: LORazepam 2 MG TABLET PO PRN ×2 (07:07→12:19)
[2018-06-09] MEDS: ESCITALOPRAM OXALATE 10 MG TABLET PO SCH (08:13)
[2018-06-09 08:16] VITALS: BP 107/60
[2018-06-09 12:19] VITALS: BP 109/68
[2018-06-09] MEDS: IBUPROFEN 400 MG TABLET PO PRN (12:19)
[2018-06-09 16:10] VITALS: BP 96/60
[2018-06-09] MEDS: OLANZapine 10 MG TABLET PO SCH (20:24)
[2018-06-09] MEDS: DIVALPROEX SODIUM 500 MG ER TABLET PO SCH (20:24)
[2018-06-10 08:15] VITALS: BP 103/63
[2018-06-10] MEDS: ESCITALOPRAM OXALATE 10 MG TABLET PO SCH (08:20)
[2018-06-10] MEDS ORDERED: ESCITALOPRAM OXALATE 10 MG TABLET PO ONE (08:45)
[2018-06-10] MEDS: QUEtiapine FUMARATE 100 MG TABLET PO PRN ×2 (12:09→16:24)
[2018-06-10 16:15] VITALS: BP 109/64
[2018-06-10] MEDS: LORazepam 2 MG TABLET PO PRN (16:24)
[2018-06-10] MEDS: DIVALPROEX SODIUM 500 MG ER TABLET PO SCH (21:09)
[2018-06-10] MEDS: OLANZapine 10 MG TABLET PO SCH (21:10)
[2018-06-11 07:09] VITALS: BP 110/67
[2018-06-11] MEDS: ESCITALOPRAM OXALATE 10 MG TABLET PO SCH (08:24)
[2018-06-11 08:25] VITALS: BP 108/57
[2018-06-11] MEDS: QUEtiapine FUMARATE 100 MG TABLET PO PRN ×2 (12:24→17:12)
[2018-06-11] MEDS: LORazepam 2 MG TABLET PO PRN ×2 (12:24→17:12)
[2018-06-11 16:39] VITALS: BP 119/68
[2018-06-11] MEDS: DIVALPROEX SODIUM 500 MG ER TABLET PO SCH (20:38)
[2018-06-11] MEDS: OLANZapine 10 MG TABLET PO SCH (20:39)
[2018-06-12 08:32] VITALS: BP 105/64
[2018-06-12 08:49] LABS: BASOPHILS % (AUTO) 0.6 % (0.0-2.0); EOSINOPHILS % (AUTO) 2.3 % (1.0-6.0); HEMATOCRIT 38.7 % (36-46); LYMPHOCYTES # (AUTO) 2.8 K/uL (1.0-4.8); LYMPHOCYTES % (AUTO) 42.7 % (22.0-44.0); MEAN CORPUSCULAR HGB CONC 33.7 G/dL (31.0-37.0); MEAN CORPUSCULAR VOLUME 92 fL (80-100); MONOCYTES # (AUTO) 0.5 K/uL (0.1-1.0); MONOCYTES % (AUTO) 7.6 % (2.0-9.0); NEUTROPHILS % (AUTO) 46.8 % (40.0-70.0); PLATELET COUNT (AUTO) 288 K/uL (150-450); RED BLOOD CELL COUNT(AUTO) 4.21 MIL/uL (4.00-5.20); RED CELL DISTRIBUTION WIDTH 12.4 % (11.5-14.5)
[2018-06-12] MEDS: ESCITALOPRAM OXALATE 10 MG TABLET PO SCH (08:50)
[2018-06-12] MEDS: LORazepam 2 MG TABLET PO PRN ×2 (08:50→16:35)
[2018-06-12 16:00] VITALS: BP 110/78
[2018-06-12] MEDS: QUEtiapine FUMARATE 100 MG TABLET PO PRN (16:35)
[2018-06-12] MEDS: DIVALPROEX SODIUM 500 MG ER TABLET PO SCH (20:57)
[2018-06-12] MEDS: OLANZapine 10 MG TABLET PO SCH (20:58)
[2018-06-13 08:01] VITALS: BP 111/71
[2018-06-13] MEDS: LORazepam 2 MG TABLET PO PRN ×2 (08:13→13:17)
[2018-06-13] MEDS: ESCITALOPRAM OXALATE 10 MG TABLET PO SCH (08:13)
[2018-06-13] MEDS: QUEtiapine FUMARATE 100 MG TABLET PO PRN ×2 (08:13→13:17)
[2018-06-13 16:04] VITALS: BP 108/67
[2018-06-13] MEDS: OLANZapine 10 MG TABLET PO SCH (20:30)
[2018-06-13] MEDS: DIVALPROEX SODIUM 500 MG ER TABLET PO SCH (20:30)
[2018-06-14 04:00] VITALS: BP 112/70
[2018-06-14 08:11] VITALS: BP 106/60
[2018-06-14] MEDS: ESCITALOPRAM OXALATE 10 MG TABLET PO SCH (08:40)
[2018-06-14] MEDS: LORazepam 2 MG TABLET PO PRN (11:19)
[2018-06-14] MEDS: QUEtiapine FUMARATE 100 MG TABLET PO PRN ×2 (11:19→16:58)
[2018-06-14 16:08] VITALS: BP 101/56
[2018-06-14] MEDS: OLANZapine 10 MG TABLET PO SCH (20:33)
[2018-06-14] MEDS: DIVALPROEX SODIUM 500 MG ER TABLET PO SCH (20:33)
[2018-06-15 05:40] VITALS: BP 103/57
[2018-06-15] MEDS: ESCITALOPRAM OXALATE 10 MG TABLET PO SCH (08:19)
[2018-06-15 08:20] VITALS: BP 108/71
[2018-06-15] MEDS: IBUPROFEN 400 MG TABLET PO PRN (08:45)
[2018-06-15 16:00] VITALS: BP 104/72
[2018-06-15] MEDS: LORazepam 2 MG TABLET PO PRN (17:24)
[2018-06-15] MEDS: QUEtiapine FUMARATE 100 MG TABLET PO PRN (17:24)
[2018-06-15] MEDS: OLANZapine 10 MG TABLET PO SCH (20:33)
[2018-06-15] MEDS: DIVALPROEX SODIUM 500 MG ER TABLET PO SCH (20:33)
[2018-06-16 06:40] VITALS: BP 110/74
[2018-06-16 08:27] VITALS: BP 113/60
[2018-06-16] MEDS ORDERED: ESCI10TA PO (08:41)
[2018-06-16] MEDS ORDERED: DIVA500T52 PO (08:41)
[2018-06-16] MEDS ORDERED: OLAN10TA3 PO (08:41)
[2018-06-16] MEDS: ESCITALOPRAM OXALATE 10 MG TABLET PO SCH (08:55)
== END 2018-06-16 13:00 | disposition home or self-care (01) | DRG 750 ==
LOC: UNDOADMIN 21:38 → B3A 21:38 → B2S 21:38
DX: F25.1 Schizoaffective disorder, depressive type (principal); I50.9 Heart failure, unspecified; E11.9 Type 2 diabetes mellitus without complications; B85.0 Pediculosis due to Pediculus humanus capitis; E03.9 Hypothyroidism, unspecified; F10.10 Alcohol abuse, uncomplicated; F41.9 Anxiety disorder, unspecified; G47.00 Insomnia, unspecified; R45.87 Impulsiveness; I34.1 Nonrheumatic mitral (valve) prolapse; Z79.899 Other long term (current) drug therapy; Z90.49 Acquired absence of other specified parts of digestive tract
CPT/HCPCS: 83036; 84439; 84443; 86592; 87081; 90686; 90732

== ENCOUNTER 2018-07-11 17:07 | Emergency (ER) | payer MEDICAID, OTHER ==
[~2018-07-11] VITALS: Ht 157.5 cm; Wt 63.6 kg
[~2018-07-11 17:07] MED LIST changes: +ESCI10TA PO; -FLUO-191 PO; -OLAN10TA20 PO; +OLAN10TA3 PO
[2018-07-11 20:40] LABS: BASOPHILS % (AUTO) 1.3 % (0.0-2.0); EOSINOPHILS % (AUTO) 2.7 % (1.0-6.0); HEMATOCRIT 38.4 % (36-46); LYMPHOCYTES # (AUTO) 3.1 K/uL (1.0-4.8); LYMPHOCYTES % (AUTO) 44.9 % (22.0-44.0); MEAN CORPUSCULAR HEMOGLOBIN 31.2 pg (26.0-34.0); MEAN CORPUSCULAR HGB CONC 33.9 G/dL (31.0-37.0); MEAN CORPUSCULAR VOLUME 92 fL (80-100); MONOCYTES # (AUTO) 0.6 K/uL (0.1-1.0); MONOCYTES % (AUTO) 9.1 % (2.0-9.0); NEUTROPHILS # (AUTO) 2.9 K/uL (1.8-7.7); PLATELET COUNT (AUTO) 394 K/uL (150-450); RED BLOOD CELL COUNT(AUTO) 4.18 MIL/uL (4.00-5.20); RED CELL DISTRIBUTION WIDTH 14.1 % (11.5-14.5)
[2018-07-11 20:51] LABS: ANION GAP 7 mmol/L (8-16); CALCIUM, TOTAL 9.5 mg/dL (8.8-10.5); CARBON DIOXIDE 30 mmol/L (22-29); CHLORIDE 105 mmol/L (98-107); CREATININE 0.61 mg/dL (0.60-1.30); GLOMERULAR FILTR. RATE CALC > 60 mL/min (>60); GLUCOSE,RANDOM 134 mg/dL (70-110); POTASSIUM 3.2 mmol/L (3.5-5.1); SODIUM SERUM 142 mmol/L (136-145); UREA NITROGEN, BLOOD 13 mg/dL (7-18)
[2018-07-11 21:04] LABS: ALANINE AMINOTRANSFERASE 26 U/L (12-78); ALBUMIN 3.5 g/dL (3.4-5.0); ALKALINE PHOSPHATASE 60 U/L (46-116); ASPARTATE AMINOTRANSFERASE 21 U/L (15-37); BILIRUBIN,TOTAL 0.2 mg/dL (0.1-1.0); HCG,QUANTITATIVE < 1 mIU/mL (0-6); TOTAL PROTEIN, SERUM 7.1 g/dL (6.4-8.2)
[2018-07-11] MEDS ORDERED: POTASSIUM CHLORIDE 20 MEQ ER TABLET PO ONE (22:00)
[2018-07-11 22:01] VITALS: BP 122/80
[2018-07-11 22:46] LABS: VALPROIC ACID < 3 mcg/mL (50-100)
[2018-07-12 10:50] LABS: GLUCOSE,POINT OF CARE 82 MG/DL (70-110)
== END 2018-07-11 22:05 | disposition home or self-care (01) ==
LOC: EMS 17:08
DX: F25.9 Schizoaffective disorder, unspecified (principal); E87.6 Hypokalemia; I50.9 Heart failure, unspecified; E11.9 Type 2 diabetes mellitus without complications; E03.9 Hypothyroidism, unspecified; F32.9 Major depressive disorder, single episode, unspecified; F17.210 Nicotine dependence, cigarettes, uncomplicated; F12.90 Cannabis use, unspecified, uncomplicated; Z59.0 Homelessness; Z88.1 Allergy status to other antibiotic agents; Z88.5 Allergy status to narcotic agent; Z88.8 Allergy status to other drugs, medicaments and biological substances; Z88.0 Allergy status to penicillin
CPT/HCPCS: 36415; 80053; 80164; 82962; 84702; 85025; 99284; G0480

== ENCOUNTER 2018-07-17 23:46 | Emergency (ER) | payer OTHER ==
[~2018-07-17] VITALS: Ht 160 cm; Wt 59.1 kg
[2018-07-17 23:59] LABS: GLUCOSE,POINT OF CARE 84 MG/DL (70-110)
[2018-07-18 00:35] VITALS: BP 102/57
== END 2018-07-18 01:00 | disposition home or self-care (01) ==
LOC: EMS 23:47
DX: J00 Acute nasopharyngitis [common cold] (principal); J34.89 Other specified disorders of nose and nasal sinuses; I50.9 Heart failure, unspecified; F32.9 Major depressive disorder, single episode, unspecified; E03.9 Hypothyroidism, unspecified; F25.9 Schizoaffective disorder, unspecified; F17.210 Nicotine dependence, cigarettes, uncomplicated; F12.90 Cannabis use, unspecified, uncomplicated; E10.8 Type 1 diabetes mellitus with unspecified complications; Z59.0 Homelessness; Z88.1 Allergy status to other antibiotic agents; Z88.5 Allergy status to narcotic agent; Z88.0 Allergy status to penicillin; Z88.8 Allergy status to other drugs, medicaments and biological substances

== ENCOUNTER 2018-09-18 19:10 | Emergency (ER) | payer OTHER ==
[~2018-09-18] VITALS: Ht 160 cm; Wt 54.5 kg
[2018-09-18 19:31] VITALS: BP 131/70
== END 2018-09-18 21:45 | disposition left against medical advice (07) ==
LOC: EMS 19:11
DX: Z53.21 Procedure and treatment not carried out due to patient leaving prior to being seen by health care provider (principal)

== ENCOUNTER 2018-09-22 16:01 | Emergency (ER) | payer OTHER ==
[~2018-09-22] VITALS: Ht 160 cm; Wt 54.5 kg
[2018-09-22 17:00] LABS: BASOPHILS % (AUTO) 0.5 % (0.0-2.0); EOSINOPHILS % (AUTO) 1.8 % (1.0-6.0); HEMATOCRIT 41.5 % (36-46); HEMOGLOBIN 13.8 g/dL (12.0-16.0); LYMPHOCYTES # (AUTO) 1.8 K/uL (1.0-4.8); LYMPHOCYTES % (AUTO) 26.1 % (22.0-44.0); MEAN CORPUSCULAR HEMOGLOBIN 31.1 pg (26.0-34.0); MEAN CORPUSCULAR HGB CONC 33.3 G/dL (31.0-37.0); MEAN CORPUSCULAR VOLUME 94 fL (80-100); MONOCYTES # (AUTO) 0.6 K/uL (0.1-1.0); MONOCYTES % (AUTO) 8.9 % (2.0-9.0); NEUTROPHILS # (AUTO) 4.3 K/uL (1.8-7.7); NEUTROPHILS % (AUTO) 62.7 % (40.0-70.0); PLATELET COUNT (AUTO) 380 K/uL (150-450); RED BLOOD CELL COUNT(AUTO) 4.44 MIL/uL (4.00-5.20); RED CELL DISTRIBUTION WIDTH 12.6 % (11.5-14.5)
[2018-09-22 17:09] LABS: ANION GAP 12 mmol/L (8-16); CALCIUM, TOTAL 8.9 mg/dL (8.8-10.5); CARBON DIOXIDE 25 mmol/L (22-29); CHLORIDE 103 mmol/L (98-107); CREATININE 0.64 mg/dL (0.60-1.30); GLOMERULAR FILTR. RATE CALC > 60 mL/min (>60); GLUCOSE,RANDOM 79 mg/dL (70-110); POTASSIUM 3.3 mmol/L (3.5-5.1); SODIUM SERUM 140 mmol/L (136-145); UREA NITROGEN, BLOOD 4 mg/dL (7-18)
[2018-09-22 17:15] LABS: ALANINE AMINOTRANSFERASE 24 U/L (12-78); ALBUMIN 3.4 g/dL (3.4-5.0); ALKALINE PHOSPHATASE 67 U/L (46-116); ASPARTATE AMINOTRANSFERASE 17 U/L (15-37); BILIRUBIN,TOTAL 0.3 mg/dL (0.1-1.0); TOTAL PROTEIN, SERUM 6.7 g/dL (6.4-8.2)
[2018-09-22 18:11] LABS: APPEARANCE,URINE CLEAR (CLEAR); BILIRUBIN,URINE NEGATIVE (NEGATIVE); GLUCOSE, URINE (UA) NEGATIVE (NEGATIVE); KETONES,URINE TRACE mg/dL (NEGATIVE); LEUKOCYTE ESTERASE ,URINE NEGATIVE (NEGATIVE); NITRATE,URINE NEGATIVE (NEGATIVE); OCCULT BLOOD,URINE MODERATE (NEGATIVE); PH,URINE 6.5 (5.0-8.0); PROTEIN,URINE NEGATIVE (NEGATIVE); UROBILINOGEN,URINE 0.2 mg/dL (<=1.0)
[2018-09-22 18:16] LABS: AMPHET/METH SCREEN,URINE NEGATIVE (NEGATIVE); BARBITURATE SCREEN, URINE NEGATIVE (NEGATIVE); BENZODIAZEPINES SCREEN,URINE NEGATIVE (NEGATIVE); CANNABINOID SCREEN,URINE NEGATIVE (NEGATIVE); COCAINE SCREEN,URINE NEGATIVE (NEGATIVE); METHADONE SCREEN, URINE NEGATIVE (NEGATIVE); OPIATE SCREEN,URINE NEGATIVE (NEGATIVE); PHENCYCLIDINE SCREEN,URINE NEGATIVE (NEGATIVE)
[2018-09-22 18:26] LABS: BACTERIA,URINE Rare /HPF (None Seen); SQUAMOUS EPITHELIAL CELL,UR Few /LPF (None Seen); WBC,URINE 0-2 /HPF (0-5)
[2018-09-22] MEDS ORDERED: POTASSIUM CHLORIDE 20 MEQ ER TABLET PO ONE (18:30)
[2018-09-22 18:46] VITALS: BP 110/61
== END 2018-09-22 19:16 | disposition home or self-care (01) ==
LOC: EMS 16:02
DX: E87.6 Hypokalemia (principal); E03.9 Hypothyroidism, unspecified; I50.9 Heart failure, unspecified; E11.9 Type 2 diabetes mellitus without complications; F32.9 Major depressive disorder, single episode, unspecified; F20.9 Schizophrenia, unspecified; F12.90 Cannabis use, unspecified, uncomplicated; F17.210 Nicotine dependence, cigarettes, uncomplicated; Z88.0 Allergy status to penicillin; Z79.899 Other long term (current) drug therapy; Z59.0 Homelessness
CPT/HCPCS: 36415; 80053; 80307; 81001; 82962; 85025; 99283; G0480

== ENCOUNTER 2018-10-29 07:59 | Inpatient (IN) | payer MEDICAID, OTHER ==
[~2018-10-29] VITALS: Ht 162.6 cm; Wt 73.9 kg
[2018-10-29] MEDS ORDERED: LORazepam 1 MG TABLET PO ONE (09:15)
[2018-10-29] MEDS ORDERED: QUEtiapine FUMARATE 100 MG TABLET PO ONE (09:15)
[2018-10-29 10:35] LABS: BASOPHILS % (AUTO) 0.3 % (0.0-2.0); HEMATOCRIT 39.8 % (36-46); HEMOGLOBIN 13.1 g/dL (12.0-16.0); LYMPHOCYTES # (AUTO) 2.4 K/uL (1.0-4.8); LYMPHOCYTES % (AUTO) 28.3 % (22.0-44.0); MEAN CORPUSCULAR HEMOGLOBIN 30.4 pg (26.0-34.0); MEAN CORPUSCULAR VOLUME 92 fL (80-100); MONOCYTES # (AUTO) 0.7 K/uL (0.1-1.0); NEUTROPHILS # (AUTO) 5.2 K/uL (1.8-7.7); NEUTROPHILS % (AUTO) 62.4 % (40.0-70.0); PLATELET COUNT (AUTO) 330 K/uL (150-450); RED BLOOD CELL COUNT(AUTO) 4.32 MIL/uL (4.00-5.20); RED CELL DISTRIBUTION WIDTH 13.2 % (11.5-14.5)
[2018-10-29 10:45] LABS: ANION GAP 9 mmol/L (8-16); CALCIUM, TOTAL 8.9 mg/dL (8.8-10.5); CARBON DIOXIDE 27 mmol/L (22-29); CHLORIDE 106 mmol/L (98-107); CREATININE 0.62 mg/dL (0.60-1.30); GLOMERULAR FILTR. RATE CALC > 60 mL/min (>60); GLUCOSE,RANDOM 112 mg/dL (70-110); POTASSIUM 3.6 mmol/L (3.5-5.1); SODIUM SERUM 142 mmol/L (136-145); UREA NITROGEN, BLOOD 9 mg/dL (7-18)
[2018-10-29 10:53] LABS: ALANINE AMINOTRANSFERASE 22 U/L (12-78); ALBUMIN 3.6 g/dL (3.4-5.0); ALKALINE PHOSPHATASE 78 U/L (46-116); ASPARTATE AMINOTRANSFERASE 22 U/L (15-37); BILIRUBIN,TOTAL 0.5 mg/dL (0.1-1.0); TOTAL PROTEIN, SERUM 6.8 g/dL (6.4-8.2)
[2018-10-29 13:48] VITALS: BP 103/78
[2018-10-29] MEDS: QUEtiapine FUMARATE 100 MG TABLET PO PRN (14:47)
[2018-10-29] MEDS: LORazepam 2 MG TABLET PO PRN (14:48)
[2018-10-29 16:11] VITALS: BP 105/60
[2018-10-30 06:16] VITALS: BP 100/71
[2018-10-30 08:27] VITALS: BP 103/59
[2018-10-30 11:03] VITALS: BP 103/64
[2018-10-30] MEDS ORDERED: PETROLATUM,WHITE 28 GM JELLY TP PRN (11:15)
[2018-10-30] MEDS ORDERED: CloNIDine HCL 0.1 MG TABLET PO PRN (11:15)
[2018-10-30] MEDS ORDERED: ALBUTEROL SULFATE HFA 90 MCG/PUFF 8 GM INHALER IH PRN (11:15)
[2018-10-30] MEDS ORDERED: MAG HYDROX/AL HYDROX/SIMETH ES 30 ML SUSPENSION UDCUP PO PRN (11:15)
[2018-10-30] MEDS ORDERED: NICOTINE 14 MG/24 HOUR PATCH TD PRN (11:15)
[2018-10-30] MEDS ORDERED: LOPERAMIDE HCL 2 MG CAPSULE PO PRN (11:15)
[2018-10-30] MEDS ORDERED: GuaiFENesin/D-METHORPHAN [SUGAR-FREE] 200-20MG/10 ML SYRUP UDCUP PO PRN (11:15)
[2018-10-30] MEDS ORDERED: ONDANSETRON HCL 4 MG TABLET PO PRN (11:15)
[2018-10-30] MEDS: ACETAMINOPHEN 325 MG TABLET PO PRN (11:54)
[2018-10-30] MEDS: ESCITALOPRAM OXALATE 10 MG TABLET PO SCH (12:46)
[2018-10-30] MEDS: DIVALPROEX SODIUM 500 MG DR TABLET PO SCH ×2 (12:47→21:01)
[2018-10-30 15:05] VITALS: BP 106/62
[2018-10-30] MEDS: IBUPROFEN 400 MG TABLET PO PRN (15:08)
[2018-10-30 17:02] VITALS: BP 122/78
[2018-10-30] MEDS: LORazepam 2 MG TABLET PO PRN (17:25)
[2018-10-30] MEDS: QUEtiapine FUMARATE 100 MG TABLET PO PRN (17:25)
[2018-10-30] MEDS: OLANZapine 10 MG TABLET PO SCH (21:19)
[2018-10-31 01:02] VITALS: BP 101/68
[2018-10-31 08:30] VITALS: BP 101/60
[2018-10-31] MEDS: DIVALPROEX SODIUM 500 MG DR TABLET PO SCH ×2 (08:46→20:14)
[2018-10-31] MEDS: ESCITALOPRAM OXALATE 10 MG TABLET PO SCH (08:46)
[2018-10-31 08:51] LABS: BASOPHILS % (AUTO) 0.6 % (0.0-2.0); EOSINOPHILS % (AUTO) 3.1 % (1.0-6.0); HEMOGLOBIN 13.2 g/dL (12.0-16.0); LYMPHOCYTES # (AUTO) 2.4 K/uL (1.0-4.8); LYMPHOCYTES % (AUTO) 44.6 % (22.0-44.0); MEAN CORPUSCULAR HEMOGLOBIN 30.6 pg (26.0-34.0); MEAN CORPUSCULAR HGB CONC 32.9 G/dL (31.0-37.0); MEAN CORPUSCULAR VOLUME 93 fL (80-100); MONOCYTES # (AUTO) 0.5 K/uL (0.1-1.0); MONOCYTES % (AUTO) 9.5 % (2.0-9.0); NEUTROPHILS # (AUTO) 2.3 K/uL (1.8-7.7); NEUTROPHILS % (AUTO) 42.2 % (40.0-70.0); PLATELET COUNT (AUTO) 352 K/uL (150-450); RED BLOOD CELL COUNT(AUTO) 4.31 MIL/uL (4.00-5.20); RED CELL DISTRIBUTION WIDTH 13.3 % (11.5-14.5)
[2018-10-31 09:13] LABS: ALANINE AMINOTRANSFERASE 17 U/L (12-78); ALBUMIN 3.4 g/dL (3.4-5.0); ALKALINE PHOSPHATASE 69 U/L (46-116); ANION GAP 7 mmol/L (8-16); ASPARTATE AMINOTRANSFERASE 12 U/L (15-37); BILIRUBIN,TOTAL 0.3 mg/dL (0.1-1.0); CALCIUM, TOTAL 8.5 mg/dL (8.8-10.5); CARBON DIOXIDE 30 mmol/L (22-29); CHLORIDE 104 mmol/L (98-107); CHOL/HDL RATIO 3.3 (3.9-5.7); CHOLESTEROL 153 mg/dL (131-200); CREATININE 0.74 mg/dL (0.60-1.30); GLOMERULAR FILTR. RATE CALC > 60 mL/min (>60); GLUCOSE,RANDOM 82 mg/dL (70-110); HDL CHOLESTEROL 46 mg/dL (40-60); LDL CHOL (CALC.) 95 mg/dL (0-130); POTASSIUM 4.1 mmol/L (3.5-5.1); SODIUM SERUM 141 mmol/L (136-145); THYROID STIMULATING HORMONE 0.64 uIU/mL (0.36-3.74); TOTAL PROTEIN, SERUM 6.8 g/dL (6.4-8.2); TRIGLYCERIDES 62 mg/dL (15-150); UREA NITROGEN, BLOOD 14 mg/dL (7-18)
[2018-10-31 09:44] LABS: HEMOGLOBIN A1C 5.1 % (4.5-6.2)
[2018-10-31 16:14] VITALS: BP 91/53
[2018-10-31] MEDS: LORazepam 2 MG TABLET PO PRN (17:22)
[2018-10-31] MEDS: OLANZapine 10 MG TABLET PO SCH (20:14)
[2018-11-01 03:07] VITALS: BP 97/68
[2018-11-01 08:20] VITALS: BP 103/59
[2018-11-01] MEDS: DIVALPROEX SODIUM 500 MG DR TABLET PO SCH ×2 (08:23→20:18)
[2018-11-01] MEDS: ESCITALOPRAM OXALATE 10 MG TABLET PO SCH (08:23)
[2018-11-01] MEDS: IBUPROFEN 400 MG TABLET PO PRN (13:36)
[2018-11-01 16:05] VITALS: BP 106/61
[2018-11-01] MEDS: ACETAMINOPHEN 325 MG TABLET PO PRN (16:15)
[2018-11-01] MEDS: OLANZapine 10 MG TABLET PO SCH (20:18)
[2018-11-02 06:00] VITALS: BP 102/60
[2018-11-02 08:16] VITALS: BP 109/60
[2018-11-02] MEDS: ESCITALOPRAM OXALATE 10 MG TABLET PO SCH (08:58)
[2018-11-02] MEDS: DIVALPROEX SODIUM 500 MG DR TABLET PO SCH ×2 (08:58→20:24)
[2018-11-02 10:10] VITALS: BP 118/72
[2018-11-02] MEDS: IBUPROFEN 400 MG TABLET PO PRN (10:10)
[2018-11-02] MEDS: LORazepam 2 MG TABLET PO PRN (10:10)
[2018-11-02] MEDS: OLANZapine 7.5 MG TABLET PO SCH (20:25)
[2018-11-03 04:25] VITALS: BP 106/58
[2018-11-03 08:15] VITALS: BP 111/70
[2018-11-03] MEDS: ESCITALOPRAM OXALATE 10 MG TABLET PO SCH (08:28)
[2018-11-03] MEDS: DIVALPROEX SODIUM 500 MG DR TABLET PO SCH ×2 (08:28→20:35)
[2018-11-03] MEDS: IBUPROFEN 400 MG TABLET PO PRN ×2 (10:34→19:11)
[2018-11-03 19:11] VITALS: BP 110/63
[2018-11-03] MEDS: OLANZapine 7.5 MG TABLET PO SCH (20:35)
[2018-11-04 08:22] VITALS: BP 108/50
[2018-11-04] MEDS: DIVALPROEX SODIUM 500 MG DR TABLET PO SCH ×2 (08:41→20:17)
[2018-11-04] MEDS: ESCITALOPRAM OXALATE 10 MG TABLET PO SCH (08:41)
[2018-11-04 12:35] VITALS: BP 112/72
[2018-11-04] MEDS: IBUPROFEN 400 MG TABLET PO PRN ×2 (12:35→20:15)
[2018-11-04] MEDS: LORazepam 2 MG TABLET PO PRN (13:20)
[2018-11-04 16:23] VITALS: BP 105/56
[2018-11-04 20:15] VITALS: BP 116/62
[2018-11-04] MEDS: OLANZapine 7.5 MG TABLET PO SCH (20:18)
[2018-11-05 07:13] VITALS: BP 118/66
[2018-11-05 08:11] VITALS: BP 103/61
[2018-11-05] MEDS: DIVALPROEX SODIUM 500 MG DR TABLET PO SCH ×2 (09:20→20:21)
[2018-11-05] MEDS: ESCITALOPRAM OXALATE 10 MG TABLET PO SCH (09:21)
[2018-11-05 16:33] VITALS: BP 109/60
[2018-11-05] MEDS: OLANZapine 7.5 MG TABLET PO SCH (20:20)
[2018-11-05] MEDS: ZOLPIDEM TARTRATE 10 MG TABLET PO PRN (22:32)
[2018-11-05] MEDS: IBUPROFEN 400 MG TABLET PO PRN (22:32)
[2018-11-05 22:33] VITALS: BP 117/60
[2018-11-06] MEDS: ESCITALOPRAM OXALATE 10 MG TABLET PO SCH (08:29)
[2018-11-06] MEDS: DIVALPROEX SODIUM 500 MG DR TABLET PO SCH ×2 (08:29→20:20)
[2018-11-06 08:44] VITALS: BP 104/55
[2018-11-06 16:16] VITALS: BP 110/64
[2018-11-06] MEDS: IBUPROFEN 400 MG TABLET PO PRN (18:58)
[2018-11-06] MEDS: OLANZapine 10 MG TABLET PO SCH (20:20)
[2018-11-06] MEDS: ZOLPIDEM TARTRATE 10 MG TABLET PO PRN (20:20)
[2018-11-07 08:15] VITALS: BP 92/50
[2018-11-07] MEDS: DIVALPROEX SODIUM 500 MG DR TABLET PO SCH ×2 (08:42→20:27)
[2018-11-07] MEDS: ESCITALOPRAM OXALATE 10 MG TABLET PO SCH (08:42)
[2018-11-07 11:54] VITALS: BP 112/74
[2018-11-07] MEDS: IBUPROFEN 400 MG TABLET PO PRN (11:54)
[2018-11-07] MEDS: LORazepam 2 MG TABLET PO PRN ×2 (11:54→17:10)
[2018-11-07 16:22] VITALS: BP 109/51
[2018-11-07 17:10] VITALS: BP 107/61
[2018-11-07] MEDS: OLANZapine 10 MG TABLET PO SCH (20:26)
[2018-11-08 03:01] VITALS: BP 101/59
[2018-11-08] MEDS: ESCITALOPRAM OXALATE 10 MG TABLET PO SCH (08:11)
[2018-11-08] MEDS: DIVALPROEX SODIUM 500 MG DR TABLET PO SCH ×2 (08:11→20:34)
[2018-11-08 08:14] VITALS: BP 102/50
[2018-11-08 13:12] VITALS: BP 110/68
[2018-11-08] MEDS: LORazepam 2 MG TABLET PO PRN (13:14)
[2018-11-08] MEDS: IBUPROFEN 400 MG TABLET PO PRN (13:14)
[2018-11-08 16:14] VITALS: BP 107/66
[2018-11-08] MEDS: QUEtiapine FUMARATE 100 MG TABLET PO PRN (18:21)
[2018-11-08] MEDS: OLANZapine 10 MG TABLET PO SCH (20:34)
[2018-11-08] MEDS: ZOLPIDEM TARTRATE 10 MG TABLET PO PRN (20:37)
[2018-11-09 05:56] VITALS: BP 92/68
[2018-11-09 08:10] VITALS: BP 116/49
[2018-11-09] MEDS: DIVALPROEX SODIUM 500 MG DR TABLET PO SCH ×2 (08:34→20:08)
[2018-11-09] MEDS: ESCITALOPRAM OXALATE 10 MG TABLET PO SCH (08:34)
[2018-11-09] MEDS: LORazepam 2 MG TABLET PO PRN ×2 (08:34→20:08)
[2018-11-09] MEDS: QUEtiapine FUMARATE 100 MG TABLET PO PRN (12:21)
[2018-11-09] MEDS: IBUPROFEN 400 MG TABLET PO PRN (12:21)
[2018-11-09 16:20] VITALS: BP 106/71
[2018-11-09] MEDS: ZOLPIDEM TARTRATE 10 MG TABLET PO PRN (20:08)
[2018-11-09] MEDS: OLANZapine 10 MG TABLET PO SCH (20:08)
[2018-11-10 06:45] VITALS: BP 111/60
[2018-11-10 08:09] VITALS: BP 107/55
[2018-11-10] MEDS: ESCITALOPRAM OXALATE 10 MG TABLET PO SCH (08:40)
[2018-11-10] MEDS: DIVALPROEX SODIUM 500 MG DR TABLET PO SCH ×2 (08:40→20:04)
[2018-11-10 12:25] VITALS: BP 108/72
[2018-11-10] MEDS: IBUPROFEN 400 MG TABLET PO PRN (12:25)
[2018-11-10] MEDS: LORazepam 2 MG TABLET PO PRN (12:25)
[2018-11-10] MEDS: QUEtiapine FUMARATE 100 MG TABLET PO PRN (12:54)
[2018-11-10 16:08] VITALS: BP 119/65
[2018-11-10] MEDS: ACETAMINOPHEN 325 MG TABLET PO PRN (18:26)
[2018-11-10] MEDS: OLANZapine 10 MG TABLET PO SCH (20:03)
[2018-11-11 03:17] VITALS: BP 103/64
[2018-11-11 08:14] VITALS: BP 100/53
[2018-11-11] MEDS: DIVALPROEX SODIUM 500 MG DR TABLET PO SCH ×2 (08:40→20:38)
[2018-11-11] MEDS: ESCITALOPRAM OXALATE 10 MG TABLET PO SCH (08:40)
[2018-11-11] MEDS: QUEtiapine FUMARATE 100 MG TABLET PO PRN (10:30)
[2018-11-11 10:31] VITALS: BP 103/61
[2018-11-11] MEDS: IBUPROFEN 400 MG TABLET PO PRN (10:31)
[2018-11-11 16:08] VITALS: BP 109/68
[2018-11-11] MEDS: OLANZapine 10 MG TABLET PO SCH (20:38)
[2018-11-11] MEDS: LORazepam 2 MG TABLET PO PRN (20:38)
[2018-11-12 04:33] VITALS: BP 120/68
[2018-11-12] MEDS: ESCITALOPRAM OXALATE 10 MG TABLET PO SCH (08:01)
[2018-11-12] MEDS: DIVALPROEX SODIUM 500 MG DR TABLET PO SCH ×2 (08:01→20:02)
[2018-11-12 08:18] VITALS: BP 100/56
[2018-11-12] MEDS: QUEtiapine FUMARATE 100 MG TABLET PO PRN (12:04)
[2018-11-12 12:05] VITALS: BP 108/72
[2018-11-12] MEDS: IBUPROFEN 400 MG TABLET PO PRN (12:05)
[2018-11-12 16:05] VITALS: BP 103/58
[2018-11-12] MEDS: LORazepam 2 MG TABLET PO PRN (17:48)
[2018-11-12] MEDS: ACETAMINOPHEN 325 MG TABLET PO PRN (17:48)
[2018-11-12 18:48] VITALS: BP 112/64
[2018-11-12] MEDS: OLANZapine 10 MG TABLET PO SCH (20:02)
[2018-11-13 06:37] VITALS: BP 105/63
[2018-11-13 08:13] VITALS: BP 102/60
[2018-11-13] MEDS: DIVALPROEX SODIUM 500 MG DR TABLET PO SCH ×2 (08:14→20:28)
[2018-11-13] MEDS: ESCITALOPRAM OXALATE 10 MG TABLET PO SCH (08:14)
[2018-11-13 10:57] VITALS: BP 110/76
[2018-11-13] MEDS: IBUPROFEN 400 MG TABLET PO PRN (10:57)
[2018-11-13 16:09] VITALS: BP 107/69
[2018-11-13] MEDS: LORazepam 2 MG TABLET PO PRN (17:17)
[2018-11-13] MEDS: NYSTATIN 500,000 UNITS/5 ML SUSPENSION UDCUP PO SCH (17:23)
[2018-11-13] MEDS: MAGNESIUM HYDROXIDE SUSPENSION 30 ML UDCUP PO PRN (18:12)
[2018-11-13] MEDS: OLANZapine 10 MG TABLET PO SCH (20:28)
[2018-11-14 00:42] VITALS: BP 110/70
[2018-11-14 08:07] VITALS: BP 95/60
[2018-11-14] MEDS: ESCITALOPRAM OXALATE 10 MG TABLET PO SCH (08:21)
[2018-11-14] MEDS: DIVALPROEX SODIUM 500 MG DR TABLET PO SCH ×2 (08:21→20:04)
[2018-11-14] MEDS: NYSTATIN 500,000 UNITS/5 ML SUSPENSION UDCUP PO SCH ×2 (08:23→16:36)
[2018-11-14 10:48] VITALS: BP 114/80
[2018-11-14] MEDS: IBUPROFEN 400 MG TABLET PO PRN ×2 (10:48→20:11)
[2018-11-14] MEDS: LORazepam 2 MG TABLET PO PRN ×2 (10:59→16:37)
[2018-11-14] MEDS: QUEtiapine FUMARATE 100 MG TABLET PO PRN (10:59)
[2018-11-14 16:31] VITALS: BP 114/77
[2018-11-14] MEDS: OLANZapine 10 MG TABLET PO SCH (20:04)
[2018-11-14 20:09] VITALS: BP 110/60
[2018-11-14] MEDS: ZOLPIDEM TARTRATE 10 MG TABLET PO PRN (21:16)
[2018-11-15 06:17] VITALS: BP 107/62
[2018-11-15 08:09] VITALS: BP 100/59
[2018-11-15] MEDS: DIVALPROEX SODIUM 500 MG DR TABLET PO SCH ×2 (08:54→20:07)
[2018-11-15] MEDS: ESCITALOPRAM OXALATE 10 MG TABLET PO SCH (08:54)
[2018-11-15] MEDS: NYSTATIN 500,000 UNITS/5 ML SUSPENSION UDCUP PO SCH ×2 (08:54→16:27)
[2018-11-15] MEDS: QUEtiapine FUMARATE 100 MG TABLET PO PRN ×2 (12:00→18:00)
[2018-11-15] MEDS: LORazepam 2 MG TABLET PO PRN ×2 (12:00→16:27)
[2018-11-15] MEDS: IBUPROFEN 400 MG TABLET PO PRN ×2 (12:00→21:51)
[2018-11-15 12:01] VITALS: BP 128/84
[2018-11-15 16:06] VITALS: BP 105/61
[2018-11-15] MEDS: OLANZapine 10 MG TABLET PO SCH (20:07)
[2018-11-16 04:16] VITALS: BP 101/76
[2018-11-16 08:10] VITALS: BP 100/52
[2018-11-16] MEDS: NYSTATIN 500,000 UNITS/5 ML SUSPENSION UDCUP PO SCH (08:35)
[2018-11-16] MEDS: DIVALPROEX SODIUM 500 MG DR TABLET PO SCH ×2 (08:35→20:25)
[2018-11-16] MEDS: ESCITALOPRAM OXALATE 10 MG TABLET PO SCH (08:35)
[2018-11-16 10:12] VITALS: BP 108/68
[2018-11-16] MEDS: IBUPROFEN 400 MG TABLET PO PRN ×2 (10:12→18:55)
[2018-11-16] MEDS: LORazepam 2 MG TABLET PO PRN ×2 (13:01→17:29)
[2018-11-16] MEDS: QUEtiapine FUMARATE 100 MG TABLET PO PRN ×2 (13:01→17:29)
[2018-11-16] MEDS: MAGNESIUM HYDROXIDE SUSPENSION 30 ML UDCUP PO PRN (13:09)
[2018-11-16 16:09] VITALS: BP 108/62
[2018-11-16] MEDS: DOCUSATE SODIUM 100 MG CAPSULE PO PRN (16:21)
[2018-11-16] MEDS: OLANZapine 10 MG TABLET PO SCH (20:24)
[2018-11-17 06:47] VITALS: BP 100/66
[2018-11-17 08:03] VITALS: BP 100/63
[2018-11-17] MEDS: DIVALPROEX SODIUM 500 MG DR TABLET PO SCH ×2 (08:07→20:19)
[2018-11-17] MEDS: ESCITALOPRAM OXALATE 10 MG TABLET PO SCH (08:07)
[2018-11-17 11:43] VITALS: BP 112/74
[2018-11-17] MEDS: IBUPROFEN 400 MG TABLET PO PRN (11:43)
[2018-11-17] MEDS: LORazepam 2 MG TABLET PO PRN ×2 (12:08→17:22)
[2018-11-17] MEDS: QUEtiapine FUMARATE 100 MG TABLET PO PRN ×2 (12:08→17:33)
[2018-11-17 16:11] VITALS: BP 100/71
[2018-11-17] MEDS: OLANZapine 10 MG TABLET PO SCH (20:18)
[2018-11-18 00:22] VITALS: BP 111/71
[2018-11-18 08:16] VITALS: BP 102/60
[2018-11-18] MEDS: DIVALPROEX SODIUM 500 MG DR TABLET PO SCH ×2 (08:16→20:02)
[2018-11-18] MEDS: ESCITALOPRAM OXALATE 10 MG TABLET PO SCH (08:16)
[2018-11-18 11:38] VITALS: BP 108/72
[2018-11-18] MEDS: IBUPROFEN 400 MG TABLET PO PRN (11:38)
[2018-11-18] MEDS: DOCUSATE SODIUM 100 MG CAPSULE PO PRN (11:38)
[2018-11-18 16:12] VITALS: BP 103/60
[2018-11-18] MEDS: LORazepam 2 MG TABLET PO PRN (16:32)
[2018-11-18] MEDS: ACETAMINOPHEN 325 MG TABLET PO PRN (18:13)
[2018-11-18] MEDS: QUEtiapine FUMARATE 100 MG TABLET PO PRN (18:14)
[2018-11-18] MEDS: OLANZapine 10 MG TABLET PO SCH (20:02)
[2018-11-18] MEDS: ZOLPIDEM TARTRATE 10 MG TABLET PO PRN (21:16)
[2018-11-19 06:14] VITALS: BP 117/69
[2018-11-19] MEDS: DIVALPROEX SODIUM 500 MG DR TABLET PO SCH ×2 (08:36→20:57)
[2018-11-19] MEDS: ESCITALOPRAM OXALATE 10 MG TABLET PO SCH (08:36)
[2018-11-19 08:51] VITALS: BP 99/67
[2018-11-19] MEDS: IBUPROFEN 400 MG TABLET PO PRN (09:10)
[2018-11-19] MEDS: QUEtiapine FUMARATE 100 MG TABLET PO PRN (12:19)
[2018-11-19 16:00] VITALS: BP 122/62
[2018-11-19] MEDS: OLANZapine 10 MG TABLET PO SCH (20:57)
[2018-11-19] MEDS: LORazepam 2 MG TABLET PO PRN (20:57)
[2018-11-19] MEDS: ZOLPIDEM TARTRATE 10 MG TABLET PO PRN (22:35)
[2018-11-20 06:49] VITALS: BP 107/62
[2018-11-20 08:29] VITALS: BP 103/55
[2018-11-20] MEDS: DIVALPROEX SODIUM 500 MG DR TABLET PO SCH (09:08)
[2018-11-20] MEDS: ESCITALOPRAM OXALATE 10 MG TABLET PO SCH (09:08)
[2018-11-20 10:18] VITALS: BP 112/60
[2018-11-20] MEDS: IBUPROFEN 400 MG TABLET PO PRN (10:24)
[2018-11-20] MEDS ORDERED: OLAN10TA20 PO (10:49)
[2018-11-20] MEDS ORDERED: ESCI10TA54 PO (10:49)
[2018-11-20] MEDS ORDERED: DIVA-78 PO ×2 (10:49→12:45)
[2018-11-20] MEDS ORDERED: OLAN10TA3 PO (12:45)
[2018-11-20] MEDS ORDERED: ESCI10TA PO (12:47)
== END 2018-11-20 15:23 | disposition home or self-care (01) | DRG 750 ==
LOC: EMS 08:01 → B3A 11:15
DX: F25.0 Schizoaffective disorder, bipolar type (principal); I50.9 Heart failure, unspecified; E11.9 Type 2 diabetes mellitus without complications; E03.9 Hypothyroidism, unspecified; F10.10 Alcohol abuse, uncomplicated; F12.90 Cannabis use, unspecified, uncomplicated; F17.200 Nicotine dependence, unspecified, uncomplicated; F41.9 Anxiety disorder, unspecified; Z59.0 Homelessness; Z79.899 Other long term (current) drug therapy; Z85.6 Personal history of leukemia; Z88.5 Allergy status to narcotic agent; Z88.0 Allergy status to penicillin; Z88.8 Allergy status to other drugs, medicaments and biological substances; Z71.51 Drug abuse counseling and surveillance of drug abuser; Z71.41 Alcohol abuse counseling and surveillance of alcoholic; Z71.6 Tobacco abuse counseling
CPT/HCPCS: 83036; 84443; G0480

== ENCOUNTER 2018-11-28 10:32 | Inpatient (IN) | payer MEDICAID, OTHER ==
[~2018-11-28] VITALS: Ht 162.6 cm; Wt 71.0 kg
[~2018-11-28 10:32] MED LIST changes: +DIVA-78 PO; -DIVA500T52 PO; +ESCI10TA54 PO; +OLAN10TA20 PO
[2018-11-28 11:09] LABS: GLUCOSE,POINT OF CARE 102 MG/DL (70-110)
[2018-11-28] MEDS ORDERED: LORazepam 2 MG/ML VIAL IM ONE (14:00)
[2018-11-28] MEDS ORDERED: OLANZapine 5 MG RAPDIS TABLET PO ONE ×2 (14:00→15:30)
[2018-11-28 16:34] LABS: BASOPHILS % (AUTO) 0.4 % (0.0-2.0); EOSINOPHILS % (AUTO) 0.9 % (1.0-6.0); HEMATOCRIT 36.1 % (36-46); HEMOGLOBIN 12.1 g/dL (12.0-16.0); LYMPHOCYTES # (AUTO) 2.1 K/uL (1.0-4.8); LYMPHOCYTES % (AUTO) 29.1 % (22.0-44.0); MEAN CORPUSCULAR HEMOGLOBIN 31.1 pg (26.0-34.0); MEAN CORPUSCULAR HGB CONC 33.4 G/dL (31.0-37.0); MEAN CORPUSCULAR VOLUME 93 fL (80-100); MONOCYTES # (AUTO) 0.8 K/uL (0.1-1.0); MONOCYTES % (AUTO) 11.2 % (2.0-9.0); NEUTROPHILS # (AUTO) 4.2 K/uL (1.8-7.7); NEUTROPHILS % (AUTO) 58.4 % (40.0-70.0); PLATELET COUNT (AUTO) 359 K/uL (150-450); RED BLOOD CELL COUNT(AUTO) 3.88 MIL/uL (4.00-5.20); RED CELL DISTRIBUTION WIDTH 13.7 % (11.5-14.5)
[2018-11-28 16:56] LABS: ANION GAP 10 mmol/L (8-16); CALCIUM, TOTAL 8.7 mg/dL (8.8-10.5); CARBON DIOXIDE 27 mmol/L (22-29); CHLORIDE 105 mmol/L (98-107); CREATININE 0.59 mg/dL (0.60-1.30); GLOMERULAR FILTR. RATE CALC > 60 mL/min (>60); GLUCOSE,RANDOM 83 mg/dL (70-110); POTASSIUM 3.3 mmol/L (3.5-5.1); SODIUM SERUM 142 mmol/L (136-145); UREA NITROGEN, BLOOD 9 mg/dL (7-18)
[2018-11-28 17:00] LABS: ALANINE AMINOTRANSFERASE 28 U/L (12-78); ALBUMIN 3.4 g/dL (3.4-5.0); ALKALINE PHOSPHATASE 65 U/L (46-116); ASPARTATE AMINOTRANSFERASE 18 U/L (15-37); BILIRUBIN,TOTAL 0.5 mg/dL (0.1-1.0)
[2018-11-28] MEDS ORDERED: ZOLPIDEM TARTRATE 10 MG TABLET PO PRN (17:00)
[2018-11-28] MEDS ORDERED: QUEtiapine FUMARATE 100 MG TABLET PO PRN (17:00)
[2018-11-28 17:28] LABS: APPEARANCE,URINE CLEAR (CLEAR); BILIRUBIN,URINE NEGATIVE (NEGATIVE); GLUCOSE, URINE (UA) NEGATIVE (NEGATIVE); KETONES,URINE TRACE mg/dL (NEGATIVE); LEUKOCYTE ESTERASE ,URINE MODERATE (NEGATIVE); NITRATE,URINE NEGATIVE (NEGATIVE); OCCULT BLOOD,URINE NEGATIVE (NEGATIVE); PROTEIN,URINE NEGATIVE (NEGATIVE); UROBILINOGEN,URINE 0.2 mg/dL (<=1.0)
[2018-11-28 17:33] LABS: AMPHET/METH SCREEN,URINE POSITIVE (NEGATIVE); BARBITURATE SCREEN, URINE NEGATIVE (NEGATIVE); BENZODIAZEPINES SCREEN,URINE NEGATIVE (NEGATIVE); CANNABINOID SCREEN,URINE NEGATIVE (NEGATIVE); COCAINE SCREEN,URINE NEGATIVE (NEGATIVE); METHADONE SCREEN, URINE NEGATIVE (NEGATIVE); OPIATE SCREEN,URINE NEGATIVE (NEGATIVE)
[2018-11-28 17:35] LABS: PHENCYCLIDINE SCREEN,URINE NEGATIVE (NEGATIVE)
[2018-11-28 17:45] LABS: BACTERIA,URINE None Seen /HPF (None Seen); RBC,URINE None Seen /HPF (0-2); SQUAMOUS EPITHELIAL CELL,UR Moderate /LPF (None Seen)
[2018-11-28 20:54] VITALS: BP 124/60
[2018-11-28] MEDS ORDERED: MAGNESIUM HYDROXIDE SUSPENSION 30 ML UDCUP PO PRN (21:15)
[2018-11-28] MEDS ORDERED: NICOTINE 14 MG/24 HOUR PATCH TD PRN (21:15)
[2018-11-28] MEDS ORDERED: DOCUSATE SODIUM 100 MG CAPSULE PO PRN (21:15)
[2018-11-28] MEDS ORDERED: CloNIDine HCL 0.1 MG TABLET PO PRN (21:15)
[2018-11-28] MEDS ORDERED: PETROLATUM,WHITE 28 GM JELLY TP PRN (21:15)
[2018-11-28] MEDS ORDERED: ONDANSETRON HCL 4 MG TABLET PO PRN (21:15)
[2018-11-28] MEDS ORDERED: ACETAMINOPHEN 325 MG TABLET PO PRN (21:15)
[2018-11-28] MEDS ORDERED: ALBUTEROL SULFATE HFA 90 MCG/PUFF 8 GM INHALER IH PRN (21:15)
[2018-11-28] MEDS ORDERED: MAG HYDROX/AL HYDROX/SIMETH ES 30 ML SUSPENSION UDCUP PO PRN (21:15)
[2018-11-28] MEDS ORDERED: GuaiFENesin/D-METHORPHAN [SUGAR-FREE] 200-20MG/10 ML SYRUP UDCUP PO PRN (21:15)
[2018-11-28] MEDS ORDERED: LOPERAMIDE HCL 2 MG CAPSULE PO PRN (21:15)
[2018-11-28] MEDS ORDERED: POTASSIUM CHLORIDE 20 MEQ ER TABLET PO ONE (21:15)
[2018-11-29 06:30] VITALS: BP 105/64
[2018-11-29 07:58] LABS: BASOPHILS % (AUTO) 0.5 % (0.0-2.0); EOSINOPHILS % (AUTO) 1.6 % (1.0-6.0); HEMATOCRIT 34.3 % (36-46); HEMOGLOBIN 11.8 g/dL (12.0-16.0); LYMPHOCYTES # (AUTO) 2.2 K/uL (1.0-4.8); LYMPHOCYTES % (AUTO) 36.8 % (22.0-44.0); MEAN CORPUSCULAR HEMOGLOBIN 31.8 pg (26.0-34.0); MEAN CORPUSCULAR HGB CONC 34.2 G/dL (31.0-37.0); MEAN CORPUSCULAR VOLUME 93 fL (80-100); MONOCYTES # (AUTO) 0.8 K/uL (0.1-1.0); NEUTROPHILS # (AUTO) 2.9 K/uL (1.8-7.7); NEUTROPHILS % (AUTO) 48.1 % (40.0-70.0); PLATELET COUNT (AUTO) 370 K/uL (150-450); RED CELL DISTRIBUTION WIDTH 13.8 % (11.5-14.5)
[2018-11-29 08:10] LABS: HEMOGLOBIN A1C 5.2 % (4.5-6.2)
[2018-11-29 08:16] VITALS: BP 111/60
[2018-11-29 08:36] LABS: CHOL/HDL RATIO 3.6 (3.9-5.7); POTASSIUM 4.7 mmol/L (3.5-5.1); THYROID STIMULATING HORMONE 0.63 uIU/mL (0.36-3.74)
[2018-11-29] MEDS: DIVALPROEX SODIUM 500 MG DR TABLET PO SCH ×2 (09:59→20:30)
[2018-11-29] MEDS: ESCITALOPRAM OXALATE 10 MG TABLET PO SCH (10:00)
[2018-11-29 16:12] VITALS: BP 118/69
[2018-11-29] MEDS: LORazepam 2 MG TABLET PO PRN (17:52)
[2018-11-29] MEDS: OLANZapine 10 MG TABLET PO SCH (20:30)
[2018-11-30 02:56] VITALS: BP 102/62
[2018-11-30 08:16] VITALS: BP 123/67
[2018-11-30] MEDS: ESCITALOPRAM OXALATE 10 MG TABLET PO SCH (09:24)
[2018-11-30] MEDS: DIVALPROEX SODIUM 500 MG DR TABLET PO SCH ×2 (09:24→20:55)
[2018-11-30 16:31] VITALS: BP 121/62
[2018-11-30] MEDS: OLANZapine 10 MG TABLET PO SCH (20:55)
[2018-12-01 06:06] VITALS: BP 114/64
[2018-12-01] MEDS: ESCITALOPRAM OXALATE 10 MG TABLET PO SCH (08:44)
[2018-12-01] MEDS: DIVALPROEX SODIUM 500 MG DR TABLET PO SCH ×2 (08:44→20:13)
[2018-12-01 08:47] VITALS: BP 113/65
[2018-12-01] MEDS: LORazepam 2 MG TABLET PO PRN (09:21)
[2018-12-01] MEDS: IBUPROFEN 400 MG TABLET PO PRN (14:18)
[2018-12-01 16:27] VITALS: BP 138/64
[2018-12-01] MEDS: OLANZapine 10 MG TABLET PO SCH (20:16)
[2018-12-02 05:09] VITALS: BP 120/68
[2018-12-02] MEDS: ESCITALOPRAM OXALATE 10 MG TABLET PO SCH (08:03)
[2018-12-02] MEDS: DIVALPROEX SODIUM 500 MG DR TABLET PO SCH ×2 (08:03→20:38)
[2018-12-02 08:22] VITALS: BP 102/71
[2018-12-02] MEDS: IBUPROFEN 400 MG TABLET PO PRN (13:45)
[2018-12-02 16:39] VITALS: BP 103/46
[2018-12-02] MEDS: LORazepam 2 MG TABLET PO PRN (16:39)
[2018-12-02] MEDS: OLANZapine 10 MG TABLET PO SCH (20:38)
[2018-12-03 00:26] VITALS: BP 117/82
[2018-12-03 08:18] VITALS: BP 101/63
[2018-12-03] MEDS: ESCITALOPRAM OXALATE 10 MG TABLET PO SCH (08:48)
[2018-12-03] MEDS: DIVALPROEX SODIUM 500 MG DR TABLET PO SCH ×2 (08:48→20:40)
[2018-12-03 16:17] VITALS: BP 106/63
[2018-12-03] MEDS: LORazepam 2 MG TABLET PO PRN (16:41)
[2018-12-03] MEDS: IBUPROFEN 400 MG TABLET PO PRN (16:42)
[2018-12-03] MEDS: OLANZapine 10 MG TABLET PO SCH (20:40)
[2018-12-04 03:04] VITALS: BP 110/68
[2018-12-04] MEDS: DIVALPROEX SODIUM 500 MG DR TABLET PO SCH (08:37)
[2018-12-04] MEDS: ESCITALOPRAM OXALATE 10 MG TABLET PO SCH (08:37)
[2018-12-04 09:01] VITALS: BP 107/55
[2018-12-04] MEDS ORDERED: ESCI10TA54 PO (11:38)
[2018-12-04] MEDS ORDERED: DIVA-78 PO (11:38)
[2018-12-04] MEDS ORDERED: OLAN10TA20 PO (11:38)
== END 2018-12-04 15:00 | disposition home or self-care (01) | DRG 750 ==
LOC: EMS 10:32 → B3A 19:07
DX: F25.0 Schizoaffective disorder, bipolar type (principal); I50.9 Heart failure, unspecified; R45.851 Suicidal ideations; F15.20 Other stimulant dependence, uncomplicated; E11.9 Type 2 diabetes mellitus without complications; Z78.1 Physical restraint status; D64.9 Anemia, unspecified; F12.90 Cannabis use, unspecified, uncomplicated; E03.9 Hypothyroidism, unspecified; E87.6 Hypokalemia; F17.200 Nicotine dependence, unspecified, uncomplicated; Z59.0 Homelessness; Z85.6 Personal history of leukemia; Z79.899 Other long term (current) drug therapy
CPT/HCPCS: 83036; 84132; 84443; 87081; 96372; G0480; J2060

== ENCOUNTER 2019-02-23 09:07 | Inpatient (IN) | payer MEDICAID ==
[~2019-02-23] VITALS: Ht 160 cm; Wt 66.3 kg
[~2019-02-23 09:07] MED LIST changes: -ESCI10TA PO; -OLAN10TA3 PO
[2019-02-23] MEDS ORDERED: LORazepam 2 MG TABLET PO ONE (10:15)
[2019-02-23] MEDS ORDERED: QUEtiapine FUMARATE 100 MG TABLET PO ONE (10:15)
[2019-02-23 11:14] LABS: AMPHET/METH SCREEN,URINE POSITIVE (NEGATIVE); BARBITURATE SCREEN, URINE NEGATIVE (NEGATIVE); BENZODIAZEPINES SCREEN,URINE NEGATIVE (NEGATIVE); CANNABINOID SCREEN,URINE NEGATIVE (NEGATIVE); COCAINE SCREEN,URINE NEGATIVE (NEGATIVE); METHADONE SCREEN, URINE NEGATIVE (NEGATIVE); OPIATE SCREEN,URINE NEGATIVE (NEGATIVE)
[2019-02-23 11:16] LABS: PHENCYCLIDINE SCREEN,URINE NEGATIVE (NEGATIVE)
[2019-02-23] MEDS ORDERED: LORazepam 2 MG/ML VIAL IM ONE (11:45)
[2019-02-23 14:07] LABS: BASOPHILS % (AUTO) 0.5 % (0.0-2.0); EOSINOPHILS % (AUTO) 1.1 % (1.0-6.0); HEMATOCRIT 36.2 % (36-46); HEMOGLOBIN 11.8 g/dL (12.0-16.0); LYMPHOCYTES % (AUTO) 32.6 % (22.0-44.0); MEAN CORPUSCULAR HEMOGLOBIN 31.3 pg (26.0-34.0); MEAN CORPUSCULAR HGB CONC 32.8 G/dL (31.0-37.0); MEAN CORPUSCULAR VOLUME 95 fL (80-100); MONOCYTES # (AUTO) 0.6 K/uL (0.1-1.0); MONOCYTES % (AUTO) 10.6 % (2.0-9.0); NEUTROPHILS # (AUTO) 3.3 K/uL (1.8-7.7); NEUTROPHILS % (AUTO) 55.2 % (40.0-70.0); PLATELET COUNT (AUTO) 364 K/uL (150-450); RED BLOOD CELL COUNT(AUTO) 3.79 MIL/uL (4.00-5.20); RED CELL DISTRIBUTION WIDTH 12.8 % (11.5-14.5)
[2019-02-23 14:16] LABS: ANION GAP 5 mmol/L (8-16); CALCIUM, TOTAL 8.7 mg/dL (8.8-10.5); CARBON DIOXIDE 31 mmol/L (22-29); CHLORIDE 108 mmol/L (98-107); CREATININE 0.66 mg/dL (0.60-1.30); GLOMERULAR FILTR. RATE CALC > 60 mL/min (>60); GLUCOSE,RANDOM 69 mg/dL (70-110); POTASSIUM 4.3 mmol/L (3.5-5.1); SODIUM SERUM 144 mmol/L (136-145); UREA NITROGEN, BLOOD 9 mg/dL (7-18)
[2019-02-23 14:22] LABS: ALANINE AMINOTRANSFERASE 10 U/L (12-78); ALBUMIN 3.5 g/dL (3.4-5.0); ALKALINE PHOSPHATASE 69 U/L (46-116); ASPARTATE AMINOTRANSFERASE 15 U/L (15-37); BILIRUBIN,TOTAL 0.3 mg/dL (0.1-1.0); TOTAL PROTEIN, SERUM 6.5 g/dL (6.4-8.2)
[2019-02-23 14:31] VITALS: BP 97/60
[2019-02-23 14:33] LABS: VALPROIC ACID < 3 mcg/mL (50-100)
[2019-02-23] MEDS ORDERED: PNEUMOCOCCAL VACCINE POLYVALENT 0.5 ML VIAL [PPSV23] IM ONE (17:15)
[2019-02-23] MEDS: DIVALPROEX SODIUM 250 MG DR TABLET PO SCH (20:18)
[2019-02-23] MEDS: OLANZapine 5 MG TABLET PO SCH (20:18)
[2019-02-23] MEDS: LORazepam 2 MG TABLET PO PRN (21:37)
[2019-02-23] MEDS: ZOLPIDEM TARTRATE 10 MG TABLET PO PRN (21:37)
[2019-02-23 21:38] VITALS: BP 101/67
[2019-02-23] MEDS ORDERED: NICOTINE 14 MG/24 HOUR PATCH TD PRN (23:00)
[2019-02-23] MEDS ORDERED: PETROLATUM,WHITE 28 GM JELLY TP PRN (23:00)
[2019-02-23] MEDS ORDERED: MAG HYDROX/AL HYDROX/SIMETH ES 30 ML SUSPENSION UDCUP PO PRN (23:00)
[2019-02-23] MEDS ORDERED: ONDANSETRON HCL 4 MG TABLET PO PRN (23:00)
[2019-02-23] MEDS ORDERED: GuaiFENesin/D-METHORPHAN [SUGAR-FREE] 200-20MG/10 ML SYRUP UDCUP PO PRN (23:00)
[2019-02-23] MEDS ORDERED: ALBUTEROL SULFATE HFA 90 MCG/PUFF 8 GM INHALER IH PRN (23:00)
[2019-02-23] MEDS ORDERED: DOCUSATE SODIUM 100 MG CAPSULE PO PRN (23:00)
[2019-02-23] MEDS ORDERED: MAGNESIUM HYDROXIDE SUSPENSION 30 ML UDCUP PO PRN (23:00)
[2019-02-23] MEDS ORDERED: CloNIDine HCL 0.1 MG TABLET PO PRN (23:00)
[2019-02-23] MEDS ORDERED: LOPERAMIDE HCL 2 MG CAPSULE PO PRN (23:00)
[2019-02-24] MEDS: DIVALPROEX SODIUM 250 MG DR TABLET PO SCH ×2 (09:31→20:26)
[2019-02-24] MEDS: ESCITALOPRAM OXALATE 10 MG TABLET PO SCH (09:32)
[2019-02-24] MEDS: OLANZapine 5 MG TABLET PO SCH (20:25)
[2019-02-25 08:00] VITALS: BP 106/60
[2019-02-25] MEDS: ESCITALOPRAM OXALATE 10 MG TABLET PO SCH (09:13)
[2019-02-25] MEDS: DIVALPROEX SODIUM 250 MG DR TABLET PO SCH ×2 (09:13→21:05)
[2019-02-25] MEDS: LORazepam 2 MG TABLET PO PRN (17:38)
[2019-02-25 19:44] VITALS: BP 113/59
[2019-02-25] MEDS: OLANZapine 5 MG TABLET PO SCH (21:05)
[2019-02-26 08:00] VITALS: BP 103/68
[2019-02-26] MEDS: ESCITALOPRAM OXALATE 10 MG TABLET PO SCH (08:51)
[2019-02-26] MEDS: DIVALPROEX SODIUM 250 MG DR TABLET PO SCH ×2 (08:51→20:21)
[2019-02-26 16:40] VITALS: BP 113/55
[2019-02-26] MEDS: ACETAMINOPHEN 325 MG TABLET PO PRN (19:28)
[2019-02-26 19:29] VITALS: BP 120/62
[2019-02-26] MEDS: OLANZapine 5 MG TABLET PO SCH (20:21)
[2019-02-27] MEDS: ESCITALOPRAM OXALATE 10 MG TABLET PO SCH (08:19)
[2019-02-27] MEDS: DIVALPROEX SODIUM 250 MG DR TABLET PO SCH ×2 (08:19→20:43)
[2019-02-27 08:56] VITALS: BP 101/63
[2019-02-27 16:42] VITALS: BP 119/69
[2019-02-27] MEDS: OLANZapine 5 MG TABLET PO SCH (20:39)
[2019-02-27] MEDS: LORazepam 2 MG TABLET PO PRN (20:39)
[2019-02-28 03:05] VITALS: BP 116/69
[2019-02-28 07:34] LABS: HEMOGLOBIN A1C 5.1 % (4.5-6.2)
[2019-02-28 08:30] VITALS: BP 105/72
[2019-02-28] MEDS: DIVALPROEX SODIUM 250 MG DR TABLET PO SCH ×2 (09:14→20:25)
[2019-02-28] MEDS: ESCITALOPRAM OXALATE 10 MG TABLET PO SCH (09:14)
[2019-02-28 16:39] VITALS: BP 96/55
[2019-02-28] MEDS: IBUPROFEN 400 MG TABLET PO PRN (17:35)
[2019-02-28 17:36] VITALS: BP 102/64
[2019-02-28] MEDS: OLANZapine 5 MG TABLET PO SCH (20:25)
[2019-03-01 08:33] VITALS: BP 105/87
[2019-03-01] MEDS: DIVALPROEX SODIUM 250 MG DR TABLET PO SCH ×2 (09:12→19:34)
[2019-03-01] MEDS: ESCITALOPRAM OXALATE 10 MG TABLET PO SCH (09:12)
[2019-03-01] MEDS: IBUPROFEN 400 MG TABLET PO PRN (11:55)
[2019-03-01] MEDS: LORazepam 2 MG TABLET PO PRN ×2 (15:05→19:34)
[2019-03-01 16:18] VITALS: BP 100/63
[2019-03-01] MEDS: ACETAMINOPHEN 325 MG TABLET PO PRN (16:19)
[2019-03-01] MEDS: OLANZapine 5 MG TABLET PO SCH (19:33)
[2019-03-02] MEDS: ESCITALOPRAM OXALATE 10 MG TABLET PO SCH (08:10)
[2019-03-02] MEDS: DIVALPROEX SODIUM 250 MG DR TABLET PO SCH ×2 (08:10→20:47)
[2019-03-02 08:43] VITALS: BP 96/52
[2019-03-02 16:16] VITALS: BP 106/69
[2019-03-02] MEDS: LORazepam 2 MG TABLET PO PRN (19:30)
[2019-03-02] MEDS: ZOLPIDEM TARTRATE 10 MG TABLET PO PRN (20:47)
[2019-03-02] MEDS: OLANZapine 5 MG TABLET PO SCH (20:48)
[2019-03-03 08:00] VITALS: BP 110/61
[2019-03-03] MEDS: DIVALPROEX SODIUM 250 MG DR TABLET PO SCH ×2 (08:33→20:01)
[2019-03-03] MEDS: ESCITALOPRAM OXALATE 10 MG TABLET PO SCH (08:33)
[2019-03-03 12:00] VITALS: BP 102/64
[2019-03-03] MEDS: ACETAMINOPHEN 325 MG TABLET PO PRN (12:00)
[2019-03-03] MEDS: LORazepam 2 MG TABLET PO PRN ×2 (12:00→17:40)
[2019-03-03 17:15] VITALS: BP 112/66
[2019-03-03] MEDS: OLANZapine 5 MG TABLET PO SCH (20:01)
[2019-03-03] MEDS: ZOLPIDEM TARTRATE 10 MG TABLET PO PRN (20:01)
[2019-03-04 09:07] VITALS: BP 111/74
[2019-03-04] MEDS: DIVALPROEX SODIUM 250 MG DR TABLET PO SCH ×2 (10:23→20:19)
[2019-03-04] MEDS: ESCITALOPRAM OXALATE 10 MG TABLET PO SCH (10:23)
[2019-03-04] MEDS: LORazepam 2 MG TABLET PO PRN (12:14)
[2019-03-04] MEDS: IBUPROFEN 400 MG TABLET PO PRN (12:14)
[2019-03-04 16:15] VITALS: BP 105/61
[2019-03-04] MEDS: OLANZapine 5 MG TABLET PO SCH (20:19)
[2019-03-04] MEDS: ZOLPIDEM TARTRATE 10 MG TABLET PO PRN (20:20)
[2019-03-05 08:00] VITALS: BP 94/68
[2019-03-05] MEDS: ESCITALOPRAM OXALATE 10 MG TABLET PO SCH (10:09)
[2019-03-05] MEDS: DIVALPROEX SODIUM 250 MG DR TABLET PO SCH ×2 (10:09→20:21)
[2019-03-05] MEDS: LORazepam 2 MG TABLET PO PRN ×2 (11:31→17:46)
[2019-03-05 16:45] VITALS: BP 103/75
[2019-03-05] MEDS: ZOLPIDEM TARTRATE 10 MG TABLET PO PRN (20:21)
[2019-03-05] MEDS: OLANZapine 5 MG TABLET PO SCH (20:21)
[2019-03-06] MEDS: DIVALPROEX SODIUM 250 MG DR TABLET PO SCH ×2 (09:17→20:10)
[2019-03-06] MEDS: ESCITALOPRAM OXALATE 10 MG TABLET PO SCH (09:17)
[2019-03-06 10:20] VITALS: BP 99/64
[2019-03-06] MEDS: LORazepam 2 MG TABLET PO PRN (12:04)
[2019-03-06] MEDS: IBUPROFEN 400 MG TABLET PO PRN (12:05)
[2019-03-06 17:48] VITALS: BP 97/61
[2019-03-06] MEDS: OLANZapine 5 MG TABLET PO SCH (20:10)
[2019-03-06] MEDS: ZOLPIDEM TARTRATE 10 MG TABLET PO PRN (20:44)
[2019-03-07 05:21] VITALS: BP 97/60
[2019-03-07 09:12] VITALS: BP 95/60
[2019-03-07] MEDS: DIVALPROEX SODIUM 250 MG DR TABLET PO SCH (09:42)
[2019-03-07] MEDS: ESCITALOPRAM OXALATE 10 MG TABLET PO SCH (09:42)
[2019-03-07] MEDS: IBUPROFEN 400 MG TABLET PO PRN (13:10)
[2019-03-07] MEDS: LORazepam 2 MG TABLET PO PRN (13:10)
[2019-03-07] MEDS ORDERED: DIVA-78 PO (16:18)
[2019-03-07] MEDS ORDERED: ESCI10TA PO (16:19)
[2019-03-07] MEDS ORDERED: OLAN20TA35 PO (16:25)
== END 2019-03-07 18:45 | disposition home or self-care (01) | DRG 750 ==
LOC: EMS 09:09 → EDSTATUS 15:48 → 3EC 15:51
PROVIDERS: ADMIT Psychiatry & Neurology Psychiatry; ATTEND Psychiatry & Neurology Psychiatry
DX: F25.9 Schizoaffective disorder, unspecified (principal); E11.9 Type 2 diabetes mellitus without complications; R45.851 Suicidal ideations; E03.9 Hypothyroidism, unspecified; F17.200 Nicotine dependence, unspecified, uncomplicated; K21.9 Gastro-esophageal reflux disease without esophagitis; F19.10 Other psychoactive substance abuse, uncomplicated; Z59.0 Homelessness; Z79.899 Other long term (current) drug therapy; Z85.6 Personal history of leukemia; Z90.49 Acquired absence of other specified parts of digestive tract; Z71.6 Tobacco abuse counseling
CPT/HCPCS: 83036; 84443; G0480; J2060

== ENCOUNTER 2019-05-18 03:39 | Emergency (ER) | payer MEDICAID, OTHER ==
[~2019-05-18] VITALS: Ht 160 cm; Wt 47.7 kg
[~2019-05-18 03:39] MED LIST changes: +ESCI10TA PO; -ESCI10TA54 PO; -OLAN10TA20 PO; +OLAN20TA35 PO
[2019-05-18 03:43] VITALS: BP 129/77
[2019-05-18 04:03] LABS: GLUCOSE,POINT OF CARE 94 MG/DL (70-110)
[2019-05-18 04:53] LABS: AMPHET/METH SCREEN,URINE POSITIVE (NEGATIVE); BARBITURATE SCREEN, URINE NEGATIVE (NEGATIVE); BENZODIAZEPINES SCREEN,URINE NEGATIVE (NEGATIVE); CANNABINOID SCREEN,URINE POSITIVE (NEGATIVE); COCAINE SCREEN,URINE NEGATIVE (NEGATIVE); METHADONE SCREEN, URINE NEGATIVE (NEGATIVE); OPIATE SCREEN,URINE NEGATIVE (NEGATIVE)
[2019-05-18 04:55] LABS: PHENCYCLIDINE SCREEN,URINE NEGATIVE (NEGATIVE)
[2019-05-18 04:58] LABS: BASOPHILS % (AUTO) 0.5 % (0.0-2.0); EOSINOPHILS % (AUTO) 0.7 % (1.0-6.0); HEMATOCRIT 39.2 % (36-46); LYMPHOCYTES # (AUTO) 1.9 K/uL (1.0-4.8); LYMPHOCYTES % (AUTO) 35.2 % (22.0-44.0); MEAN CORPUSCULAR HEMOGLOBIN 30.9 pg (26.0-34.0); MEAN CORPUSCULAR HGB CONC 33.3 G/dL (31.0-37.0); MEAN CORPUSCULAR VOLUME 93 fL (80-100); MONOCYTES # (AUTO) 0.4 K/uL (0.1-1.0); MONOCYTES % (AUTO) 7.6 % (2.0-9.0); PLATELET COUNT (AUTO) 370 K/uL (150-450); RED BLOOD CELL COUNT(AUTO) 4.22 MIL/uL (4.00-5.20); RED CELL DISTRIBUTION WIDTH 12.7 % (11.5-14.5)
[2019-05-18 05:05] LABS: ANION GAP 6 mmol/L (8-16); CALCIUM, TOTAL 8.4 mg/dL (8.8-10.5); CARBON DIOXIDE 28 mmol/L (22-29); CHLORIDE 104 mmol/L (98-107); CREATININE 0.71 mg/dL (0.60-1.30); GLOMERULAR FILTR. RATE CALC > 60 mL/min (>60); GLUCOSE,RANDOM 130 mg/dL (70-110); POTASSIUM 3.1 mmol/L (3.5-5.1); SODIUM SERUM 138 mmol/L (136-145); UREA NITROGEN, BLOOD 6 mg/dL (7-18)
[2019-05-18] MEDS ORDERED: OLANZapine 5 MG TABLET PO ONE (05:15)
[2019-05-18] MEDS ORDERED: POTASSIUM CHLORIDE 20 MEQ ER TABLET PO ONE (05:15)
[2019-05-18] MEDS ORDERED: LORazepam 2 MG TABLET PO ONE (05:15)
[2019-05-18 05:16] LABS: ALANINE AMINOTRANSFERASE 22 U/L (12-78); ALBUMIN 3.6 g/dL (3.4-5.0); ALKALINE PHOSPHATASE 69 U/L (46-116); ASPARTATE AMINOTRANSFERASE 19 U/L (15-37); BILIRUBIN,TOTAL 0.5 mg/dL (0.1-1.0); HCG,QUANTITATIVE < 1 mIU/mL (0-6); TOTAL PROTEIN, SERUM 7.1 g/dL (6.4-8.2)
[2019-05-18 05:18] LABS: VALPROIC ACID < 3 mcg/mL (50-100)
== END 2019-05-18 06:19 | disposition left against medical advice (07) ==
LOC: EMS 03:41
DX: F25.9 Schizoaffective disorder, unspecified (principal); F31.9 Bipolar disorder, unspecified; F22 Delusional disorders; E11.9 Type 2 diabetes mellitus without complications; E03.9 Hypothyroidism, unspecified; F17.210 Nicotine dependence, cigarettes, uncomplicated; F19.90 Other psychoactive substance use, unspecified, uncomplicated; Z59.0 Homelessness; Z88.5 Allergy status to narcotic agent; Z88.0 Allergy status to penicillin; Z88.8 Allergy status to other drugs, medicaments and biological substances
CPT/HCPCS: 36415; 80053; 80164; 80307; 82962; 84702; 85025; 99284; 99406; G0480

== ENCOUNTER 2019-05-25 19:18 | Inpatient (IN) | payer MEDICAID, OTHER ==
[~2019-05-25] VITALS: Ht 160 cm; Wt 59.0 kg
[2019-05-25] MEDS ORDERED: LORazepam 2 MG/ML VIAL ONE ×2 (19:59→20:01)
[2019-05-25] MEDS ORDERED: HALOPERIDOL LACTATE 5 MG/ML VIAL ONE (19:59)
[2019-05-25] MEDS ORDERED: LORazepam 2 MG/ML VIAL IM ONE (20:00)
[2019-05-25 20:45] LABS: BASOPHILS % (AUTO) 0.4 % (0.0-2.0); EOSINOPHILS % (AUTO) 0.5 % (1.0-6.0); HEMATOCRIT 33.4 % (36-46); HEMOGLOBIN 11.5 g/dL (12.0-16.0); LYMPHOCYTES # (AUTO) 1.9 K/uL (1.0-4.8); LYMPHOCYTES % (AUTO) 23.9 % (22.0-44.0); MEAN CORPUSCULAR HEMOGLOBIN 31.9 pg (26.0-34.0); MEAN CORPUSCULAR HGB CONC 34.6 G/dL (31.0-37.0); MEAN CORPUSCULAR VOLUME 92 fL (80-100); MONOCYTES # (AUTO) 0.6 K/uL (0.1-1.0); MONOCYTES % (AUTO) 7.8 % (2.0-9.0); NEUTROPHILS # (AUTO) 5.3 K/uL (1.8-7.7); NEUTROPHILS % (AUTO) 67.4 % (40.0-70.0); PLATELET COUNT (AUTO) 351 K/uL (150-450); RED BLOOD CELL COUNT(AUTO) 3.62 MIL/uL (4.00-5.20); RED CELL DISTRIBUTION WIDTH 12.5 % (11.5-14.5)
[2019-05-25 20:54] LABS: ANION GAP 11 mmol/L (8-16); CALCIUM, TOTAL 8.4 mg/dL (8.8-10.5); CARBON DIOXIDE 24 mmol/L (22-29); CHLORIDE 105 mmol/L (98-107); CREATININE 0.67 mg/dL (0.60-1.30); GLOMERULAR FILTR. RATE CALC > 60 mL/min (>60); GLUCOSE,RANDOM 97 mg/dL (70-110); POTASSIUM 3.4 mmol/L (3.5-5.1); SODIUM SERUM 140 mmol/L (136-145); UREA NITROGEN, BLOOD 16 mg/dL (7-18)
[2019-05-25 21:00] LABS: ALANINE AMINOTRANSFERASE 28 U/L (12-78); ALBUMIN 3.6 g/dL (3.4-5.0); ALKALINE PHOSPHATASE 63 U/L (46-116); ASPARTATE AMINOTRANSFERASE 28 U/L (15-37); BILIRUBIN,TOTAL 0.6 mg/dL (0.1-1.0); TOTAL PROTEIN, SERUM 6.9 g/dL (6.4-8.2)
[2019-05-25] MEDS ORDERED: POTASSIUM CHLORIDE 20 MEQ ER TABLET PO ONE (23:15)
[2019-05-25 23:54] LABS: AMPHET/METH SCREEN,URINE POSITIVE (NEGATIVE); BARBITURATE SCREEN, URINE NEGATIVE (NEGATIVE); BENZODIAZEPINES SCREEN,URINE NEGATIVE (NEGATIVE); CANNABINOID SCREEN,URINE NEGATIVE (NEGATIVE); COCAINE SCREEN,URINE NEGATIVE (NEGATIVE); METHADONE SCREEN, URINE NEGATIVE (NEGATIVE); OPIATE SCREEN,URINE NEGATIVE (NEGATIVE)
[2019-05-25 23:57] LABS: PHENCYCLIDINE SCREEN,URINE NEGATIVE (NEGATIVE)
[2019-05-26 01:11] LABS: VALPROIC ACID < 3 mcg/mL (50-100)
[2019-05-26] MEDS ORDERED: LORazepam 2 MG TABLET PO PRN (01:15)
[2019-05-26] MEDS ORDERED: ZOLPIDEM TARTRATE 10 MG TABLET PO PRN (01:15)
[2019-05-26] MEDS ORDERED: QUEtiapine FUMARATE 100 MG TABLET PO PRN (01:15)
[2019-05-26 03:54] LABS: HCG,QUANTITATIVE < 1 mIU/mL (0-6)
[2019-05-26] MEDS: ESCITALOPRAM OXALATE 10 MG TABLET PO SCH ×2 (09:30→09:52)
[2019-05-26 09:50] VITALS: BP 124/64
[2019-05-26 11:18] LABS: GLUCOMETER DEV NAME(LOC) BV2S.; GLUCOSE,POINT OF CARE 111 MG/DL (70-110)
[2019-05-26] MEDS ORDERED: INFLUENZA VIRUS VACCINE QVS 2019-20 (3YR+)/PF 60 MCG/0.5 ML SYRINGE IM ONE (14:15)
[2019-05-26] MEDS ORDERED: MAGNESIUM HYDROXIDE SUSPENSION 30 ML UDCUP PO PRN (15:00)
[2019-05-26] MEDS ORDERED: CloNIDine HCL 0.1 MG TABLET PO PRN (15:00)
[2019-05-26] MEDS ORDERED: MAG HYDROX/AL HYDROX/SIMETH ES 30 ML SUSPENSION UDCUP PO PRN (15:00)
[2019-05-26] MEDS ORDERED: ONDANSETRON HCL 4 MG TABLET PO PRN (15:00)
[2019-05-26] MEDS ORDERED: LOPERAMIDE HCL 2 MG CAPSULE PO PRN (15:00)
[2019-05-26] MEDS ORDERED: NICOTINE 14 MG/24 HOUR PATCH TD PRN (15:00)
[2019-05-26] MEDS ORDERED: GuaiFENesin/D-METHORPHAN [SUGAR-FREE] 200-20MG/10 ML SYRUP UDCUP PO PRN (15:00)
[2019-05-26] MEDS ORDERED: ALBUTEROL SULFATE HFA 90 MCG/PUFF 8 GM INHALER IH PRN (15:00)
[2019-05-26] MEDS ORDERED: POTASSIUM CHLORIDE 20 MEQ ER TABLET PO ONE (15:00)
[2019-05-26] MEDS ORDERED: PETROLATUM,WHITE 28 GM JELLY TP PRN (15:00)
[2019-05-26] MEDS ORDERED: DOCUSATE SODIUM 100 MG CAPSULE PO PRN (15:00)
[2019-05-26] MEDS: ACETAMINOPHEN 325 MG TABLET PO PRN (17:45)
[2019-05-26 18:22] VITALS: BP 108/61
[2019-05-26] MEDS: DIVALPROEX SODIUM 500 MG DR TABLET PO SCH (20:28)
[2019-05-26] MEDS: OLANZapine 10 MG TABLET PO SCH (20:28)
[2019-05-27] MEDS: ESCITALOPRAM OXALATE 10 MG TABLET PO SCH (09:12)
[2019-05-27] MEDS: DIVALPROEX SODIUM 500 MG DR TABLET PO SCH ×2 (09:12→20:24)
[2019-05-27 09:22] VITALS: BP 103/65
[2019-05-27] MEDS: OLANZapine 10 MG TABLET PO SCH (20:24)
[2019-05-28] MEDS: DIVALPROEX SODIUM 500 MG DR TABLET PO SCH ×2 (08:19→20:43)
[2019-05-28] MEDS: ESCITALOPRAM OXALATE 10 MG TABLET PO SCH (08:19)
[2019-05-28 09:15] VITALS: BP 112/43
[2019-05-28 16:20] VITALS: BP 103/71
[2019-05-28] MEDS: OLANZapine 10 MG TABLET PO SCH (20:43)
[2019-05-29 00:54] VITALS: BP 102/63
[2019-05-29 08:13] VITALS: BP 122/71
[2019-05-29] MEDS: DIVALPROEX SODIUM 500 MG DR TABLET PO SCH ×2 (08:28→20:09)
[2019-05-29] MEDS: ESCITALOPRAM OXALATE 10 MG TABLET PO SCH (08:28)
[2019-05-29 10:08] VITALS: BP 105/68
[2019-05-29] MEDS: IBUPROFEN 400 MG TABLET PO PRN (10:10)
[2019-05-29 10:50] VITALS: BP 110/73
[2019-05-29 18:02] VITALS: BP 112/61
[2019-05-29] MEDS: OLANZapine 10 MG TABLET PO SCH (20:08)
[2019-05-30 00:56] VITALS: BP 103/65
[2019-05-30 08:23] VITALS: BP 105/65
[2019-05-30] MEDS: DIVALPROEX SODIUM 500 MG DR TABLET PO SCH ×2 (08:26→20:15)
[2019-05-30] MEDS: ESCITALOPRAM OXALATE 10 MG TABLET PO SCH (08:26)
[2019-05-30 13:26] VITALS: BP 112/64
[2019-05-30] MEDS: IBUPROFEN 400 MG TABLET PO PRN (13:26)
[2019-05-30 16:25] VITALS: BP 108/72
[2019-05-30] MEDS ORDERED: QUEtiapine FUMARATE 100 MG TABLET PO PRN (17:00)
[2019-05-30] MEDS ORDERED: ZOLPIDEM TARTRATE 10 MG TABLET PO PRN (17:00)
[2019-05-30] MEDS: LORazepam 2 MG TABLET PO PRN (17:03)
[2019-05-30] MEDS: OLANZapine 7.5 MG TABLET PO SCH (20:16)
[2019-05-31 00:21] VITALS: BP 136/81
[2019-05-31 08:12] VITALS: BP 105/69
[2019-05-31] MEDS: DIVALPROEX SODIUM 500 MG DR TABLET PO SCH ×2 (08:46→20:16)
[2019-05-31] MEDS: ESCITALOPRAM OXALATE 10 MG TABLET PO SCH (08:46)
[2019-05-31 16:07] VITALS: BP 109/82
[2019-05-31] MEDS: OLANZapine 7.5 MG TABLET PO SCH (20:17)
[2019-06-01 06:31] VITALS: BP 102/71
[2019-06-01 08:27] VITALS: BP 113/78
[2019-06-01] MEDS: DIVALPROEX SODIUM 500 MG DR TABLET PO SCH ×2 (09:03→20:11)
[2019-06-01] MEDS: ESCITALOPRAM OXALATE 10 MG TABLET PO SCH (09:03)
[2019-06-01 11:49] VITALS: BP 116/76
[2019-06-01] MEDS: IBUPROFEN 400 MG TABLET PO PRN (11:49)
[2019-06-01] MEDS: LORazepam 2 MG TABLET PO PRN (11:49)
[2019-06-01 16:08] VITALS: BP 104/60
[2019-06-01] MEDS: OLANZapine 7.5 MG TABLET PO SCH (20:11)
[2019-06-02 00:13] VITALS: BP 109/60
[2019-06-02 08:19] VITALS: BP 106/64
[2019-06-02] MEDS: DIVALPROEX SODIUM 500 MG DR TABLET PO SCH ×2 (08:31→21:12)
[2019-06-02] MEDS: ESCITALOPRAM OXALATE 10 MG TABLET PO SCH (08:31)
[2019-06-02 16:06] VITALS: BP 111/61
[2019-06-02] MEDS: ACETAMINOPHEN 325 MG TABLET PO PRN (16:07)
[2019-06-02] MEDS: LORazepam 2 MG TABLET PO PRN (16:07)
[2019-06-02] MEDS: OLANZapine 7.5 MG TABLET PO SCH (21:12)
[2019-06-03 05:40] VITALS: BP 118/65
[2019-06-03 08:20] VITALS: BP 113/71
[2019-06-03] MEDS ORDERED: MULTIVITAMINS WITH MINERALS, THERAPEUTIC TABLET PO SCH (09:00)
[2019-06-03] MEDS: ESCITALOPRAM OXALATE 10 MG TABLET PO SCH (09:19)
[2019-06-03] MEDS: DIVALPROEX SODIUM 500 MG DR TABLET PO SCH (09:19)
[2019-06-03] MEDS: LORazepam 2 MG TABLET PO PRN (10:24)
[2019-06-03] MEDS: IBUPROFEN 400 MG TABLET PO PRN (10:26)
[2019-06-03] MEDS ORDERED: OLAN7.5T2 PO (10:38)
[2019-06-03] MEDS ORDERED: DIVA-78 PO (10:54)
[2019-06-03] MEDS ORDERED: ESCI10TA PO (10:55)
== END 2019-06-03 13:30 | disposition home or self-care (01) | DRG 750 ==
LOC: EMS 19:18 → B2S 05-26 07:04
DX: F25.0 Schizoaffective disorder, bipolar type (principal); I50.9 Heart failure, unspecified; E11.9 Type 2 diabetes mellitus without complications; Z78.1 Physical restraint status; E03.9 Hypothyroidism, unspecified; D64.9 Anemia, unspecified; E87.6 Hypokalemia; F15.10 Other stimulant abuse, uncomplicated; F17.210 Nicotine dependence, cigarettes, uncomplicated; Z59.0 Homelessness; Z85.6 Personal history of leukemia; Z88.8 Allergy status to other drugs, medicaments and biological substances; Z23 Encounter for immunization
CPT/HCPCS: 84132; 90686; G0480; J1630; J2060

== ENCOUNTER 2019-07-13 16:29 | Emergency (ER) | payer MEDICAID, OTHER ==
[~2019-07-13] VITALS: Ht 160 cm; Wt 60.0 kg
[~2019-07-13 16:29] MED LIST changes: -OLAN20TA35 PO; +OLAN7.5T2 PO
[2019-07-13 16:42] VITALS: BP 120/65
== END 2019-07-13 21:39 | disposition left against medical advice (07) ==
LOC: EMS 16:30
DX: R21 Rash and other nonspecific skin eruption (principal); Z53.21 Procedure and treatment not carried out due to patient leaving prior to being seen by health care provider

== ENCOUNTER 2019-07-27 09:04 | Emergency (ER) | payer OTHER ==
[~2019-07-27] VITALS: Ht 160 cm; Wt 65.9 kg
[2019-07-27 10:38] VITALS: BP 130/84
[2019-07-27 11:03] LABS: AMPHET/METH SCREEN,URINE POSITIVE (NEGATIVE); BARBITURATE SCREEN, URINE NEGATIVE (NEGATIVE); BENZODIAZEPINES SCREEN,URINE NEGATIVE (NEGATIVE); CANNABINOID SCREEN,URINE NEGATIVE (NEGATIVE); COCAINE SCREEN,URINE NEGATIVE (NEGATIVE); METHADONE SCREEN, URINE NEGATIVE (NEGATIVE); OPIATE SCREEN,URINE NEGATIVE (NEGATIVE)
[2019-07-27 11:06] LABS: PHENCYCLIDINE SCREEN,URINE NEGATIVE (NEGATIVE)
== END 2019-07-27 11:03 | disposition home or self-care (01) ==
LOC: EMS 09:04
DX: F20.9 Schizophrenia, unspecified (principal); E11.9 Type 2 diabetes mellitus without complications; E03.9 Hypothyroidism, unspecified; F17.210 Nicotine dependence, cigarettes, uncomplicated; F15.90 Other stimulant use, unspecified, uncomplicated; F32.9 Major depressive disorder, single episode, unspecified; Z79.899 Other long term (current) drug therapy; Z88.0 Allergy status to penicillin; Z88.5 Allergy status to narcotic agent; Z88.6 Allergy status to analgesic agent; Z91.041 Radiographic dye allergy status; Z59.0 Homelessness

== ENCOUNTER 2019-09-08 22:47 | Emergency (ER) | payer OTHER ==
[~2019-09-08] VITALS: Ht 160 cm; Wt 45.5 kg
[2019-09-08 23:43] VITALS: BP 115/68
[2019-09-09 00:02] LABS: GLUCOSE,POINT OF CARE 88 MG/DL (70-110)
== END 2019-09-08 23:50 | disposition left against medical advice (07) ==
LOC: EMS 22:47
DX: Z53.21 Procedure and treatment not carried out due to patient leaving prior to being seen by health care provider (principal)

== ENCOUNTER 2019-09-30 03:48 | Emergency (ER) | payer OTHER ==
[~2019-09-30] VITALS: Ht 162.6 cm; Wt 58.6 kg
[2019-09-30 04:50] VITALS: BP 122/83
== END 2019-09-30 06:54 | disposition home or self-care (01) ==
LOC: EMS 03:48
DX: Z00.00 Encounter for general adult medical examination without abnormal findings (principal); E11.9 Type 2 diabetes mellitus without complications; E03.9 Hypothyroidism, unspecified; F20.9 Schizophrenia, unspecified; F32.9 Major depressive disorder, single episode, unspecified; F15.90 Other stimulant use, unspecified, uncomplicated; F17.210 Nicotine dependence, cigarettes, uncomplicated; Z59.0 Homelessness; Z88.0 Allergy status to penicillin; Z88.1 Allergy status to other antibiotic agents; Z88.5 Allergy status to narcotic agent; Z88.8 Allergy status to other drugs, medicaments and biological substances; Z79.899 Other long term (current) drug therapy

== ENCOUNTER 2019-10-23 15:12 | Emergency (ER) | payer OTHER ==
[~2019-10-23] VITALS: Ht 162.6 cm; Wt 70.5 kg
[2019-10-23] MEDS ORDERED: BENZ0.5T44 PO (15:55)
[2019-10-23] MEDS ORDERED: RISPC50 IM (15:55)
[2019-10-23] MEDS ORDERED: LORA-1000 PO (15:55)
[2019-10-23] MEDS ORDERED: RISP4 PO (15:55)
[2019-10-23 15:59] VITALS: BP 113/85
[2019-10-23 16:02] LABS: BASOPHILS % (AUTO) 0.6 % (0.0-2.0); EOSINOPHILS % (AUTO) 2.5 % (1.0-6.0); HEMATOCRIT 32.7 % (36-46); HEMOGLOBIN 10.7 g/dL (12.0-16.0); LYMPHOCYTES # (AUTO) 2.6 K/uL (1.0-4.8); LYMPHOCYTES % (AUTO) 31.4 % (22.0-44.0); MEAN CORPUSCULAR HEMOGLOBIN 30.5 pg (26.0-34.0); MEAN CORPUSCULAR HGB CONC 32.7 G/dL (31.0-37.0); MEAN CORPUSCULAR VOLUME 93 fL (80-100); MONOCYTES # (AUTO) 0.7 K/uL (0.1-1.0); MONOCYTES % (AUTO) 8.5 % (2.0-9.0); NEUTROPHILS # (AUTO) 4.6 K/uL (1.8-7.7); PLATELET COUNT (AUTO) 330 K/uL (150-450); RED BLOOD CELL COUNT(AUTO) 3.51 MIL/uL (4.00-5.20); RED CELL DISTRIBUTION WIDTH 14.1 % (11.5-14.5)
[2019-10-23 16:13] LABS: GLUCOSE,POINT OF CARE 92 MG/DL (70-110)
[2019-10-23 16:24] LABS: ANION GAP 10 mmol/L (8-16); CALCIUM, TOTAL 8.7 mg/dL (8.8-10.5); CARBON DIOXIDE 24 mmol/L (22-29); CHLORIDE 106 mmol/L (98-107); CREATININE 0.65 mg/dL (0.60-1.30); GLOMERULAR FILTR. RATE CALC > 60 mL/min (>60); GLUCOSE,RANDOM 94 mg/dL (70-110); SODIUM SERUM 140 mmol/L (136-145); UREA NITROGEN, BLOOD 24 mg/dL (7-18)
[2019-10-23] MEDS ORDERED: LORazepam 2 MG/ML VIAL IM ONE (16:30)
[2019-10-23 16:31] LABS: ALANINE AMINOTRANSFERASE 29 U/L (12-78); ALBUMIN 3.7 g/dL (3.4-5.0); ALKALINE PHOSPHATASE 60 U/L (46-116); ASPARTATE AMINOTRANSFERASE 17 U/L (15-37); BILIRUBIN,TOTAL 0.2 mg/dL (0.1-1.0); HCG,QUANTITATIVE < 1 mIU/mL (0-6)
[2019-10-23 17:21] LABS: AMPHET/METH SCREEN,URINE NEGATIVE (NEGATIVE); BARBITURATE SCREEN, URINE NEGATIVE (NEGATIVE); BENZODIAZEPINES SCREEN,URINE NEGATIVE (NEGATIVE); CANNABINOID SCREEN,URINE NEGATIVE (NEGATIVE); COCAINE SCREEN,URINE NEGATIVE (NEGATIVE); METHADONE SCREEN, URINE NEGATIVE (NEGATIVE); OPIATE SCREEN,URINE NEGATIVE (NEGATIVE)
[2019-10-23 17:25] LABS: PHENCYCLIDINE SCREEN,URINE NEGATIVE (NEGATIVE)
[2019-10-23 17:53] LABS: VALPROIC ACID < 3 mcg/mL (50-100)
== END 2019-10-23 17:38 | disposition left against medical advice (07) ==
LOC: EMS 15:17
DX: F25.9 Schizoaffective disorder, unspecified (principal); F31.9 Bipolar disorder, unspecified; F69 Unspecified disorder of adult personality and behavior; F17.210 Nicotine dependence, cigarettes, uncomplicated; Z59.0 Homelessness; Z88.5 Allergy status to narcotic agent; Z88.0 Allergy status to penicillin; Z88.8 Allergy status to other drugs, medicaments and biological substances; Z79.899 Other long term (current) drug therapy
CPT/HCPCS: 36415; 80053; 80164; 80307; 82962; 84702; 85025; 96372; 99284; G0480; J2060

== ENCOUNTER 2019-10-29 10:34 | Inpatient (IN) | payer MEDICAID, OTHER ==
[~2019-10-29] VITALS: Ht 160 cm; Wt 63.5 kg
[~2019-10-29 10:34] MED LIST changes: +BENZ0.5T44 PO; -DIVA-78 PO; -ESCI10TA PO; +LORA-1000 PO; +RISP4 PO; +RISPC50 IM
[2019-10-29] MEDS ORDERED: LORazepam 2 MG/ML VIAL IM ONE (10:45)
[2019-10-29 12:26] LABS: BASOPHILS % (AUTO) 0.4 % (0.0-2.0); EOSINOPHILS % (AUTO) 0.8 % (1.0-6.0); HEMATOCRIT 35.5 % (36-46); HEMOGLOBIN 12.1 g/dL (12.0-16.0); LYMPHOCYTES # (AUTO) 1.8 K/uL (1.0-4.8); MEAN CORPUSCULAR HEMOGLOBIN 31.7 pg (26.0-34.0); MEAN CORPUSCULAR VOLUME 93 fL (80-100); MONOCYTES # (AUTO) 0.9 K/uL (0.1-1.0); MONOCYTES % (AUTO) 11.2 % (2.0-9.0); NEUTROPHILS # (AUTO) 5.4 K/uL (1.8-7.7); NEUTROPHILS % (AUTO) 65.6 % (40.0-70.0); PLATELET COUNT (AUTO) 410 K/uL (150-450); RED BLOOD CELL COUNT(AUTO) 3.81 MIL/uL (4.00-5.20); RED CELL DISTRIBUTION WIDTH 13.7 % (11.5-14.5)
[2019-10-29 12:35] LABS: ANION GAP 11 mmol/L (8-16); CARBON DIOXIDE 26 mmol/L (22-29); CHLORIDE 105 mmol/L (98-107); CREATININE 0.64 mg/dL (0.60-1.30); GLOMERULAR FILTR. RATE CALC > 60 mL/min (>60); GLUCOSE,RANDOM 73 mg/dL (70-110); POTASSIUM 3.6 mmol/L (3.5-5.1); SODIUM SERUM 142 mmol/L (136-145); UREA NITROGEN, BLOOD 16 mg/dL (7-18)
[2019-10-29 12:41] LABS: ALANINE AMINOTRANSFERASE 27 U/L (12-78); ALBUMIN 4.2 g/dL (3.4-5.0); ALKALINE PHOSPHATASE 68 U/L (46-116); ASPARTATE AMINOTRANSFERASE 19 U/L (15-37); BILIRUBIN,TOTAL 0.6 mg/dL (0.1-1.0); TOTAL PROTEIN, SERUM 7.6 g/dL (6.4-8.2)
[2019-10-29 13:27] LABS: AMPHET/METH SCREEN,URINE POSITIVE (NEGATIVE); BARBITURATE SCREEN, URINE NEGATIVE (NEGATIVE); BENZODIAZEPINES SCREEN,URINE NEGATIVE (NEGATIVE); CANNABINOID SCREEN,URINE POSITIVE (NEGATIVE); COCAINE SCREEN,URINE NEGATIVE (NEGATIVE); METHADONE SCREEN, URINE NEGATIVE (NEGATIVE); OPIATE SCREEN,URINE NEGATIVE (NEGATIVE)
[2019-10-29 13:46] LABS: PHENCYCLIDINE SCREEN,URINE NEGATIVE (NEGATIVE)
[2019-10-29] MEDS: LORazepam 2 MG TABLET PO PRN (18:39)
[2019-10-29 18:42] VITALS: BP 115/68
[2019-10-29] MEDS ORDERED: HALOPERIDOL 5 MG TABLET PO PRN (21:00)
[2019-10-29] MEDS: OLANZapine 7.5 MG TABLET PO SCH (21:06)
[2019-10-29] MEDS: DIVALPROEX SODIUM 500 MG DR TABLET PO SCH (21:06)
[2019-10-30 02:35] VITALS: BP 110/72
[2019-10-30 08:05] VITALS: BP 111/65
[2019-10-30] MEDS: DIVALPROEX SODIUM 500 MG DR TABLET PO SCH ×2 (09:47→20:29)
[2019-10-30] MEDS ORDERED: BACITRACIN 28.4 GM OINTMENT TP PRN (13:30)
[2019-10-30] MEDS ORDERED: MAG HYDROX/AL HYDROX/SIMETH ES 30 ML SUSPENSION UDCUP PO PRN (13:30)
[2019-10-30] MEDS ORDERED: PETROLATUM,WHITE 28 GM JELLY TP PRN (13:30)
[2019-10-30] MEDS ORDERED: LOPERAMIDE HCL 2 MG CAPSULE PO PRN (13:30)
[2019-10-30] MEDS ORDERED: ONDANSETRON HCL 4 MG TABLET PO PRN (13:30)
[2019-10-30] MEDS ORDERED: DOCUSATE SODIUM 100 MG CAPSULE PO PRN (13:30)
[2019-10-30] MEDS ORDERED: ALBUTEROL SULFATE HFA 90 MCG/PUFF 8 GM INHALER IH PRN (13:30)
[2019-10-30] MEDS ORDERED: CloNIDine HCL 0.1 MG TABLET PO PRN (13:30)
[2019-10-30] MEDS ORDERED: MAGNESIUM HYDROXIDE SUSPENSION 30 ML UDCUP PO PRN (13:30)
[2019-10-30] MEDS ORDERED: OMEPRAZOLE 20 MG CAPSULE PO PRN (13:30)
[2019-10-30] MEDS ORDERED: BENZOCAINE/MENTHOL LOZENGE MM PRN (13:30)
[2019-10-30] MEDS ORDERED: ACETAMINOPHEN 325 MG TABLET PO PRN (13:30)
[2019-10-30] MEDS: OLANZapine 7.5 MG TABLET PO SCH (20:28)
[2019-10-30 21:30] VITALS: BP 105/61
[2019-10-31 02:42] VITALS: BP 100/64
[2019-10-31 08:22] VITALS: BP 106/67
[2019-10-31] MEDS: DIVALPROEX SODIUM 500 MG DR TABLET PO SCH ×2 (09:01→20:50)
[2019-10-31] MEDS: LORazepam 2 MG TABLET PO PRN (12:02)
[2019-10-31 16:24] VITALS: BP 100/55
[2019-10-31] MEDS: OLANZapine 7.5 MG TABLET PO SCH (20:50)
[2019-11-01 04:21] VITALS: BP 105/63
[2019-11-01 08:25] VITALS: BP 107/60
[2019-11-01] MEDS: DIVALPROEX SODIUM 500 MG DR TABLET PO SCH ×2 (08:42→20:57)
[2019-11-01 16:08] VITALS: BP 109/52
[2019-11-01] MEDS: IBUPROFEN 600 MG TABLET PO PRN (18:09)
[2019-11-01] MEDS: LORazepam 2 MG TABLET PO PRN (20:57)
[2019-11-01] MEDS: OLANZapine 7.5 MG TABLET PO SCH (20:57)
[2019-11-02 02:57] VITALS: BP 110/62
[2019-11-02 08:30] VITALS: BP 112/57
[2019-11-02] MEDS: DIVALPROEX SODIUM 500 MG DR TABLET PO SCH ×2 (08:32→20:06)
[2019-11-02 17:03] VITALS: BP 104/70
[2019-11-02] MEDS: OLANZapine 7.5 MG TABLET PO SCH (20:06)
[2019-11-03 03:11] VITALS: BP 110/75
[2019-11-03 08:29] VITALS: BP 100/59
[2019-11-03] MEDS: DIVALPROEX SODIUM 500 MG DR TABLET PO SCH ×2 (08:29→20:49)
[2019-11-03 14:00] VITALS: BP 110/72
[2019-11-03] MEDS: LORazepam 2 MG TABLET PO PRN (14:05)
[2019-11-03 16:18] VITALS: BP 108/60
[2019-11-03] MEDS: OLANZapine 7.5 MG TABLET PO SCH (20:50)
[2019-11-04 05:04] VITALS: BP 106/63
[2019-11-04 08:47] VITALS: BP 105/56
[2019-11-04] MEDS: DIVALPROEX SODIUM 500 MG DR TABLET PO SCH ×2 (08:52→20:25)
[2019-11-04] MEDS: LORazepam 2 MG TABLET PO PRN (10:58)
[2019-11-04 16:39] VITALS: BP 102/60
[2019-11-04] MEDS: OLANZapine 7.5 MG TABLET PO SCH (20:25)
[2019-11-05 02:33] VITALS: BP 100/71
[2019-11-05] MEDS: DIVALPROEX SODIUM 500 MG DR TABLET PO SCH ×2 (08:16→20:19)
[2019-11-05 08:21] VITALS: BP 104/56
[2019-11-05 12:05] VITALS: BP 114/72
[2019-11-05] MEDS: LORazepam 2 MG TABLET PO PRN (12:09)
[2019-11-05 16:03] VITALS: BP 106/63
[2019-11-05] MEDS: THIAMINE 100 MG TABLET PO SCH (16:30)
[2019-11-05 19:24] VITALS: BP 104/69
[2019-11-05] MEDS: IBUPROFEN 600 MG TABLET PO PRN (19:24)
[2019-11-05] MEDS: OLANZapine 7.5 MG TABLET PO SCH (20:19)
[2019-11-06 02:23] VITALS: BP 100/72
[2019-11-06] MEDS ORDERED: DIVA-78 PO (05:40)
[2019-11-06] MEDS: DIVALPROEX SODIUM 500 MG DR TABLET PO SCH (08:13)
[2019-11-06] MEDS: THIAMINE 100 MG TABLET PO SCH (08:13)
[2019-11-06] MEDS ORDERED: MULTIVITAMINS WITH MINERALS, THERAPEUTIC TABLET PO SCH (09:00)
[2019-11-06] MEDS ORDERED: FOLIC ACID 1 MG TABLET PO SCH (09:00)
== END 2019-11-06 08:30 | disposition home or self-care (01) | DRG 750 ==
LOC: EMS 10:36 → B3A 16:09
PROVIDERS: ADMIT Psychiatry & Neurology Psychiatry; ATTEND Psychiatry & Neurology Psychiatry
DX: F25.0 Schizoaffective disorder, bipolar type (principal); Z59.0 Homelessness; E03.9 Hypothyroidism, unspecified; I10 Essential (primary) hypertension; F17.210 Nicotine dependence, cigarettes, uncomplicated; F41.9 Anxiety disorder, unspecified; G47.00 Insomnia, unspecified; K59.00 Constipation, unspecified; K21.9 Gastro-esophageal reflux disease without esophagitis; F15.10 Other stimulant abuse, uncomplicated; F12.90 Cannabis use, unspecified, uncomplicated; Z85.6 Personal history of leukemia; Z88.0 Allergy status to penicillin; Z88.5 Allergy status to narcotic agent; Z88.8 Allergy status to other drugs, medicaments and biological substances
CPT/HCPCS: 99291; G0480; J2060

== ENCOUNTER 2019-11-14 11:32 | Emergency (ER) | payer MEDICAID, OTHER ==
[~2019-11-14] VITALS: Ht 170.2 cm; Wt 70.0 kg
[~2019-11-14 11:32] MED LIST changes: -BENZ0.5T44 PO; +DIVA-78 PO; -LORA-1000 PO; -RISP4 PO; -RISPC50 IM
[2019-11-14 12:00] VITALS: BP 119/73
== END 2019-11-14 15:24 | disposition left against medical advice (07) ==
LOC: EMS 11:38
DX: R46.2 Strange and inexplicable behavior (principal); Z53.21 Procedure and treatment not carried out due to patient leaving prior to being seen by health care provider

== ENCOUNTER 2019-11-18 04:15 | Inpatient (IN) | payer MEDICAID, OTHER ==
[~2019-11-18] VITALS: Ht 162.6 cm; Wt 69.9 kg
[2019-11-18] MEDS ORDERED: ACETAMINOPHEN 500 MG TABLET PO ONE (05:30)
[2019-11-18 05:55] LABS: BASOPHILS % (AUTO) 0.3 % (0.0-2.0); EOSINOPHILS % (AUTO) 1.5 % (1.0-6.0); HEMATOCRIT 34.1 % (36-46); HEMOGLOBIN 11.4 g/dL (12.0-16.0); LYMPHOCYTES # (AUTO) 1.8 K/uL (1.0-4.8); MEAN CORPUSCULAR HEMOGLOBIN 31.5 pg (26.0-34.0); MEAN CORPUSCULAR HGB CONC 33.4 G/dL (31.0-37.0); MEAN CORPUSCULAR VOLUME 94 fL (80-100); MONOCYTES # (AUTO) 0.7 K/uL (0.1-1.0); MONOCYTES % (AUTO) 9.5 % (2.0-9.0); NEUTROPHILS % (AUTO) 65.7 % (40.0-70.0); PLATELET COUNT (AUTO) 338 K/uL (150-450); RED BLOOD CELL COUNT(AUTO) 3.62 MIL/uL (4.00-5.20); RED CELL DISTRIBUTION WIDTH 14.2 % (11.5-14.5)
[2019-11-18 06:06] LABS: ANION GAP 8 mmol/L (8-16); CALCIUM, TOTAL 8.2 mg/dL (8.8-10.5); CARBON DIOXIDE 28 mmol/L (22-29); CHLORIDE 106 mmol/L (98-107); CREATININE 0.57 mg/dL (0.60-1.30); GLOMERULAR FILTR. RATE CALC > 60 mL/min (>60); GLUCOSE,RANDOM 134 mg/dL (70-110); POTASSIUM 3.5 mmol/L (3.5-5.1); SODIUM SERUM 142 mmol/L (136-145); UREA NITROGEN, BLOOD 7 mg/dL (7-18)
[2019-11-18 06:18] LABS: ALANINE AMINOTRANSFERASE 23 U/L (12-78); ALBUMIN 3.5 g/dL (3.4-5.0); ALKALINE PHOSPHATASE 57 U/L (46-116); ASPARTATE AMINOTRANSFERASE 14 U/L (15-37); BILIRUBIN,TOTAL 0.3 mg/dL (0.1-1.0); HCG,QUANTITATIVE < 1 mIU/mL (0-6); TOTAL PROTEIN, SERUM 6.8 g/dL (6.4-8.2)
[2019-11-18 06:50] LABS: AMPHET/METH SCREEN,URINE POSITIVE (NEGATIVE); BARBITURATE SCREEN, URINE NEGATIVE (NEGATIVE); BENZODIAZEPINES SCREEN,URINE NEGATIVE (NEGATIVE); CANNABINOID SCREEN,URINE POSITIVE (NEGATIVE); COCAINE SCREEN,URINE NEGATIVE (NEGATIVE); METHADONE SCREEN, URINE NEGATIVE (NEGATIVE); OPIATE SCREEN,URINE NEGATIVE (NEGATIVE)
[2019-11-18 07:00] LABS: PHENCYCLIDINE SCREEN,URINE NEGATIVE (NEGATIVE)
[2019-11-18] MEDS ORDERED: OLANZapine 5 MG TABLET PO ONE (11:30)
[2019-11-18] MEDS ORDERED: ZOLPIDEM TARTRATE 10 MG TABLET PO PRN (11:45)
[2019-11-18 14:59] VITALS: BP 90/50
[2019-11-18 16:34] VITALS: BP 108/65
[2019-11-18] MEDS ORDERED: CloNIDine HCL 0.1 MG TABLET PO PRN (17:00)
[2019-11-18] MEDS ORDERED: MAG HYDROX/AL HYDROX/SIMETH ES 30 ML SUSPENSION UDCUP PO PRN (17:00)
[2019-11-18] MEDS ORDERED: ONDANSETRON HCL 4 MG TABLET PO PRN (17:00)
[2019-11-18] MEDS ORDERED: ALBUTEROL SULFATE HFA 90 MCG/PUFF 8 GM INHALER IH PRN (17:00)
[2019-11-18] MEDS ORDERED: LOPERAMIDE HCL 2 MG CAPSULE PO PRN (17:00)
[2019-11-18] MEDS ORDERED: PETROLATUM,WHITE 28 GM JELLY TP PRN (17:00)
[2019-11-18] MEDS ORDERED: BENZOCAINE/MENTHOL LOZENGE MM PRN (17:00)
[2019-11-18] MEDS ORDERED: MAGNESIUM HYDROXIDE SUSPENSION 30 ML UDCUP PO PRN (17:00)
[2019-11-19 05:52] VITALS: BP 104/50
[2019-11-19 08:14] VITALS: BP 100/59
[2019-11-19] MEDS: BACITRACIN 28.4 GM OINTMENT TP PRN (08:58)
[2019-11-19] MEDS: OMEPRAZOLE 20 MG CAPSULE PO SCH (08:58)
[2019-11-19] MEDS: DOCUSATE SODIUM 100 MG CAPSULE PO SCH (08:58)
[2019-11-19 16:19] VITALS: BP 100/60
[2019-11-19] MEDS: DIVALPROEX SODIUM 500 MG ER TABLET PO SCH (21:37)
[2019-11-19] MEDS: OLANZapine 7.5 MG TABLET PO SCH (21:38)
[2019-11-20 02:17] VITALS: BP 102/63
[2019-11-20] MEDS: BACITRACIN 28.4 GM OINTMENT TP PRN (08:20)
[2019-11-20] MEDS: OMEPRAZOLE 20 MG CAPSULE PO SCH (08:22)
[2019-11-20] MEDS: DOCUSATE SODIUM 100 MG CAPSULE PO SCH (08:22)
[2019-11-20] MEDS: DIVALPROEX SODIUM 500 MG ER TABLET PO SCH ×2 (08:22→20:45)
[2019-11-20 08:23] VITALS: BP 109/62
[2019-11-20 16:24] VITALS: BP 110/62
[2019-11-20] MEDS: LORazepam 2 MG TABLET PO PRN (16:41)
[2019-11-20] MEDS: OLANZapine 7.5 MG TABLET PO SCH (20:45)
[2019-11-21 01:56] VITALS: BP 115/68
[2019-11-21] MEDS: OMEPRAZOLE 20 MG CAPSULE PO SCH (08:27)
[2019-11-21] MEDS: DOCUSATE SODIUM 100 MG CAPSULE PO SCH (08:27)
[2019-11-21] MEDS: DIVALPROEX SODIUM 500 MG ER TABLET PO SCH ×2 (08:27→20:10)
[2019-11-21] MEDS: BACITRACIN 28.4 GM OINTMENT TP PRN (08:27)
[2019-11-21 13:49] VITALS: BP 105/59
[2019-11-21 16:00] VITALS: BP 122/58
[2019-11-21] MEDS: LORazepam 2 MG TABLET PO PRN (16:40)
[2019-11-21] MEDS: OLANZapine 7.5 MG TABLET PO SCH (20:10)
[2019-11-21] MEDS: IBUPROFEN 600 MG TABLET PO PRN (23:13)
[2019-11-22 00:51] VITALS: BP 117/85
[2019-11-22] MEDS: OMEPRAZOLE 20 MG CAPSULE PO SCH (09:07)
[2019-11-22] MEDS: DIVALPROEX SODIUM 500 MG ER TABLET PO SCH ×2 (09:07→20:03)
[2019-11-22] MEDS: DOCUSATE SODIUM 100 MG CAPSULE PO SCH (09:07)
[2019-11-22 10:52] VITALS: BP 102/50
[2019-11-22 16:50] VITALS: BP 121/65
[2019-11-22] MEDS: LORazepam 2 MG TABLET PO PRN (18:00)
[2019-11-22] MEDS: ACETAMINOPHEN 325 MG TABLET PO PRN (18:00)
[2019-11-22] MEDS: OLANZapine 7.5 MG TABLET PO SCH (20:03)
[2019-11-23 07:16] VITALS: BP 99/57
[2019-11-23 08:44] LABS: CHOL/HDL RATIO 3.7 (3.9-5.7)
[2019-11-23] MEDS: DOCUSATE SODIUM 100 MG CAPSULE PO SCH (09:18)
[2019-11-23] MEDS: OMEPRAZOLE 20 MG CAPSULE PO SCH (09:18)
[2019-11-23] MEDS: DIVALPROEX SODIUM 500 MG ER TABLET PO SCH ×2 (09:18→20:17)
[2019-11-23 09:20] VITALS: BP 100/69
[2019-11-23 16:17] VITALS: BP 111/68
[2019-11-23] MEDS: IBUPROFEN 600 MG TABLET PO PRN (18:18)
[2019-11-23] MEDS: LORazepam 2 MG TABLET PO PRN (18:18)
[2019-11-23] MEDS: OLANZapine 7.5 MG TABLET PO SCH (20:17)
[2019-11-24 06:23] VITALS: BP 106/56
[2019-11-24 08:33] VITALS: BP 100/65
[2019-11-24] MEDS: OMEPRAZOLE 20 MG CAPSULE PO SCH (09:01)
[2019-11-24] MEDS: DIVALPROEX SODIUM 500 MG ER TABLET PO SCH ×2 (09:01→21:04)
[2019-11-24] MEDS: DOCUSATE SODIUM 100 MG CAPSULE PO SCH (09:01)
[2019-11-24] MEDS: LORazepam 2 MG TABLET PO PRN (14:39)
[2019-11-24 16:11] VITALS: BP 100/60
[2019-11-24] MEDS: OLANZapine 7.5 MG TABLET PO SCH (21:04)
[2019-11-25 04:20] VITALS: BP 102/70
[2019-11-25 08:12] VITALS: BP 110/60
[2019-11-25] MEDS: OMEPRAZOLE 20 MG CAPSULE PO SCH (08:29)
[2019-11-25] MEDS: DOCUSATE SODIUM 100 MG CAPSULE PO SCH (08:29)
[2019-11-25] MEDS: DIVALPROEX SODIUM 500 MG ER TABLET PO SCH ×2 (08:30→20:50)
[2019-11-25 16:23] VITALS: BP 106/60
[2019-11-25] MEDS: IBUPROFEN 600 MG TABLET PO PRN (16:58)
[2019-11-25] MEDS: LORazepam 2 MG TABLET PO PRN (16:58)
[2019-11-25] MEDS: OLANZapine 7.5 MG TABLET PO SCH (20:51)
[2019-11-26 06:08] VITALS: BP 107/69
[2019-11-26] MEDS: OMEPRAZOLE 20 MG CAPSULE PO SCH (08:58)
[2019-11-26] MEDS: DIVALPROEX SODIUM 500 MG ER TABLET PO SCH ×2 (08:58→20:28)
[2019-11-26] MEDS: DOCUSATE SODIUM 100 MG CAPSULE PO SCH (08:58)
[2019-11-26 09:19] VITALS: BP 97/55
[2019-11-26] MEDS: LORazepam 2 MG TABLET PO PRN ×2 (12:30→17:39)
[2019-11-26 16:00] VITALS: BP 117/65
[2019-11-26] MEDS: IBUPROFEN 600 MG TABLET PO PRN (17:40)
[2019-11-26] MEDS: OLANZapine 7.5 MG TABLET PO SCH (20:28)
[2019-11-27 08:12] VITALS: BP 110/63
[2019-11-27] MEDS: DOCUSATE SODIUM 100 MG CAPSULE PO SCH (08:57)
[2019-11-27] MEDS: OMEPRAZOLE 20 MG CAPSULE PO SCH (08:57)
[2019-11-27] MEDS: DIVALPROEX SODIUM 500 MG ER TABLET PO SCH ×2 (08:58→20:33)
[2019-11-27 13:39] VITALS: BP 118/74
[2019-11-27] MEDS: LORazepam 2 MG TABLET PO PRN ×2 (13:39→18:02)
[2019-11-27] MEDS: IBUPROFEN 600 MG TABLET PO PRN (13:39)
[2019-11-27] MEDS: ACETAMINOPHEN 325 MG TABLET PO PRN (17:09)
[2019-11-27 17:25] VITALS: BP 101/68
[2019-11-27] MEDS: OLANZapine 7.5 MG TABLET PO SCH (20:33)
[2019-11-28 06:51] VITALS: BP 108/66
[2019-11-28 08:04] VITALS: BP 108/68
[2019-11-28] MEDS: DOCUSATE SODIUM 100 MG CAPSULE PO SCH (08:21)
[2019-11-28] MEDS: OMEPRAZOLE 20 MG CAPSULE PO SCH (08:21)
[2019-11-28] MEDS: DIVALPROEX SODIUM 500 MG ER TABLET PO SCH ×2 (08:21→20:04)
[2019-11-28 16:00] VITALS: BP 104/47
[2019-11-28] MEDS: LORazepam 2 MG TABLET PO PRN (16:13)
[2019-11-28] MEDS: ACETAMINOPHEN 325 MG TABLET PO PRN (16:14)
[2019-11-28 16:19] VITALS: BP 109/78
[2019-11-28] MEDS: OLANZapine 10 MG TABLET PO SCH (20:04)
[2019-11-28] MEDS: IBUPROFEN 600 MG TABLET PO PRN (20:38)
[2019-11-29 00:03] VITALS: BP 115/73
[2019-11-29] MEDS: DOCUSATE SODIUM 100 MG CAPSULE PO SCH (08:28)
[2019-11-29] MEDS: OMEPRAZOLE 20 MG CAPSULE PO SCH (08:28)
[2019-11-29] MEDS: DIVALPROEX SODIUM 500 MG ER TABLET PO SCH ×2 (08:28→20:04)
[2019-11-29 08:44] VITALS: BP 100/51
[2019-11-29 12:44] VITALS: BP 112/68
[2019-11-29] MEDS: IBUPROFEN 600 MG TABLET PO PRN (12:44)
[2019-11-29 16:18] VITALS: BP 114/85
[2019-11-29] MEDS: LORazepam 2 MG TABLET PO PRN (17:04)
[2019-11-29] MEDS: OLANZapine 10 MG TABLET PO SCH (20:04)
[2019-11-30 06:05] VITALS: BP 100/61
[2019-11-30 08:04] VITALS: BP 135/65
[2019-11-30] MEDS: OMEPRAZOLE 20 MG CAPSULE PO SCH (08:11)
[2019-11-30] MEDS: DIVALPROEX SODIUM 500 MG ER TABLET PO SCH ×2 (08:11→20:37)
[2019-11-30] MEDS: DOCUSATE SODIUM 100 MG CAPSULE PO SCH (08:11)
[2019-11-30 16:34] VITALS: BP 87/47
[2019-11-30] MEDS: IBUPROFEN 600 MG TABLET PO PRN (18:00)
[2019-11-30] MEDS: LORazepam 2 MG TABLET PO PRN (18:00)
[2019-11-30] MEDS: OLANZapine 10 MG TABLET PO SCH (20:37)
[2019-12-01 06:09] VITALS: BP 108/69
[2019-12-01 08:09] VITALS: BP 91/48
[2019-12-01] MEDS: DIVALPROEX SODIUM 500 MG ER TABLET PO SCH ×2 (09:05→20:50)
[2019-12-01] MEDS: DOCUSATE SODIUM 100 MG CAPSULE PO SCH (09:05)
[2019-12-01] MEDS: OMEPRAZOLE 20 MG CAPSULE PO SCH (09:05)
[2019-12-01 16:20] VITALS: BP 106/60
[2019-12-01] MEDS: ACETAMINOPHEN 325 MG TABLET PO PRN (17:02)
[2019-12-01] MEDS: HALOPERIDOL 5 MG TABLET PO PRN (19:00)
[2019-12-01] MEDS: LORazepam 2 MG TABLET PO PRN (19:00)
[2019-12-01] MEDS: OLANZapine 10 MG TABLET PO SCH (20:50)
[2019-12-02 00:22] VITALS: BP 104/65
[2019-12-02 08:18] VITALS: BP 95/61
[2019-12-02] MEDS: DOCUSATE SODIUM 100 MG CAPSULE PO SCH (08:42)
[2019-12-02] MEDS: OMEPRAZOLE 20 MG CAPSULE PO SCH (08:42)
[2019-12-02] MEDS: DIVALPROEX SODIUM 500 MG ER TABLET PO SCH ×2 (08:42→20:42)
[2019-12-02] MEDS: LORazepam 2 MG TABLET PO PRN ×2 (12:45→17:50)
[2019-12-02 12:46] VITALS: BP 120/71
[2019-12-02] MEDS: ACETAMINOPHEN 325 MG TABLET PO PRN ×2 (12:46→17:50)
[2019-12-02] MEDS: HALOPERIDOL 5 MG TABLET PO PRN ×2 (13:59→18:43)
[2019-12-02 16:00] VITALS: BP 94/57
[2019-12-02] MEDS: OLANZapine 10 MG TABLET PO SCH (20:42)
[2019-12-03 01:07] VITALS: BP 95/72
[2019-12-03] MEDS: DIVALPROEX SODIUM 500 MG ER TABLET PO SCH ×2 (08:56→20:39)
[2019-12-03] MEDS: OMEPRAZOLE 20 MG CAPSULE PO SCH (08:56)
[2019-12-03] MEDS: DOCUSATE SODIUM 100 MG CAPSULE PO SCH (08:57)
[2019-12-03 09:04] VITALS: BP 94/51
[2019-12-03 14:41] VITALS: BP 115/52
[2019-12-03] MEDS: IBUPROFEN 600 MG TABLET PO PRN (16:00)
[2019-12-03] MEDS: LORazepam 2 MG TABLET PO PRN (17:11)
[2019-12-03] MEDS: HALOPERIDOL 5 MG TABLET PO PRN (17:11)
[2019-12-03 17:35] VITALS: BP 94/68
[2019-12-03] MEDS: OLANZapine 10 MG TABLET PO SCH (20:39)
[2019-12-04 01:11] VITALS: BP 90/62
[2019-12-04 08:06] VITALS: BP 126/84
[2019-12-04] MEDS: OMEPRAZOLE 20 MG CAPSULE PO SCH (09:03)
[2019-12-04] MEDS: DOCUSATE SODIUM 100 MG CAPSULE PO SCH (09:03)
[2019-12-04] MEDS: DIVALPROEX SODIUM 500 MG ER TABLET PO SCH ×2 (09:03→20:18)
[2019-12-04] MEDS: HALOPERIDOL 5 MG TABLET PO PRN ×2 (10:42→17:44)
[2019-12-04 13:20] VITALS: BP 116/78
[2019-12-04] MEDS: IBUPROFEN 600 MG TABLET PO PRN (13:20)
[2019-12-04 17:44] VITALS: BP 103/62
[2019-12-04] MEDS: ACETAMINOPHEN 325 MG TABLET PO PRN (17:44)
[2019-12-04] MEDS: BACITRACIN 28.4 GM OINTMENT TP PRN (19:03)
[2019-12-04] MEDS: OLANZapine 10 MG TABLET PO SCH (20:18)
[2019-12-05 01:02] VITALS: BP 104/60
[2019-12-05] MEDS: LORazepam 2 MG TABLET PO PRN (05:10)
[2019-12-05] MEDS: HALOPERIDOL 5 MG TABLET PO PRN (05:10)
[2019-12-05 08:22] VITALS: BP 103/54
[2019-12-05] MEDS: OMEPRAZOLE 20 MG CAPSULE PO SCH (09:06)
[2019-12-05] MEDS: DOCUSATE SODIUM 100 MG CAPSULE PO SCH (09:06)
[2019-12-05] MEDS: DIVALPROEX SODIUM 500 MG ER TABLET PO SCH (09:06)
[2019-12-05] MEDS ORDERED: OLAN10TA3 PO (13:48)
[2019-12-05] MEDS ORDERED: DIVA500T52 PO (13:48)
== END 2019-12-05 15:00 | disposition home or self-care (01) | DRG 750 ==
LOC: EMS 04:15 → B3A 13:51 → B2S 11-21 09:40
PROVIDERS: ADMIT Psychiatry & Neurology Child & Adolescent Psychiatry; ATTEND Psychiatry & Neurology Psychiatry
DX: F25.9 Schizoaffective disorder, unspecified (principal); R45.851 Suicidal ideations; I47.1 Supraventricular tachycardia; E03.9 Hypothyroidism, unspecified; F15.10 Other stimulant abuse, uncomplicated; I10 Essential (primary) hypertension; L55.0 Sunburn of first degree; F41.9 Anxiety disorder, unspecified; G47.00 Insomnia, unspecified; K21.9 Gastro-esophageal reflux disease without esophagitis; K59.00 Constipation, unspecified; M19.90 Unspecified osteoarthritis, unspecified site; R45.87 Impulsiveness; Z59.0 Homelessness; Z87.891 Personal history of nicotine dependence
CPT/HCPCS: 83036; 87081; G0480

== ENCOUNTER 2020-01-08 21:46 | Inpatient (IN) | payer MEDICAID, OTHER ==
[~2020-01-08] VITALS: Ht 162.6 cm; Wt 64.0 kg
[~2020-01-08 21:46] MED LIST changes: -DIVA-78 PO; +DIVA-80 PO; +OLAN10TA3 PO; -OLAN7.5T2 PO
[2020-01-09] MEDS ORDERED: LORazepam 2 MG/ML VIAL IM ONE
[2020-01-09] MEDS ORDERED: HALOPERIDOL LACTATE 5 MG/ML VIAL IM ONE
[2020-01-09] MEDS ORDERED: ZOLPIDEM TARTRATE 10 MG TABLET PO PRN
[2020-01-09] MEDS ORDERED: BENZTROPINE MESYLATE 1 MG/ML 2 ML VIAL IM ONE
[2020-01-09 00:06] LABS: BASOPHILS % (AUTO) 1.1 % (0.0-2.0); EOSINOPHILS % (AUTO) 1.6 % (1.0-6.0); HEMATOCRIT 38.3 % (36-46); HEMOGLOBIN 12.7 g/dL (12.0-16.0); LYMPHOCYTES # (AUTO) 2.1 K/uL (1.0-4.8); LYMPHOCYTES % (AUTO) 35.6 % (22.0-44.0); MEAN CORPUSCULAR HEMOGLOBIN 30.8 pg (26.0-34.0); MEAN CORPUSCULAR HGB CONC 33.3 G/dL (31.0-37.0); MEAN CORPUSCULAR VOLUME 93 fL (80-100); MONOCYTES # (AUTO) 0.6 K/uL (0.1-1.0); MONOCYTES % (AUTO) 10.7 % (2.0-9.0); PLATELET COUNT (AUTO) 631 K/uL (150-450); RED BLOOD CELL COUNT(AUTO) 4.14 MIL/uL (4.00-5.20); RED CELL DISTRIBUTION WIDTH 13.8 % (11.5-14.5)
[2020-01-09 00:15] LABS: ANION GAP 7 mmol/L (8-16); CALCIUM, TOTAL 9.2 mg/dL (8.8-10.5); CARBON DIOXIDE 32 mmol/L (22-29); CHLORIDE 104 mmol/L (98-107); CREATININE 0.74 mg/dL (0.60-1.30); GLOMERULAR FILTR. RATE CALC > 60 mL/min (>60); GLUCOSE,RANDOM 94 mg/dL (70-110); POTASSIUM 3.9 mmol/L (3.5-5.1); SODIUM SERUM 143 mmol/L (136-145); UREA NITROGEN, BLOOD 15 mg/dL (7-18)
[2020-01-09 00:21] LABS: ALANINE AMINOTRANSFERASE 28 U/L (12-78); ALBUMIN 3.7 g/dL (3.4-5.0); ALKALINE PHOSPHATASE 88 U/L (46-116); ASPARTATE AMINOTRANSFERASE 25 U/L (15-37); BILIRUBIN,TOTAL 0.2 mg/dL (0.1-1.0); TOTAL PROTEIN, SERUM 8.4 g/dL (6.4-8.2)
[2020-01-09 00:28] LABS: AMPHET/METH SCREEN,URINE POSITIVE (NEGATIVE); BARBITURATE SCREEN, URINE NEGATIVE (NEGATIVE); BENZODIAZEPINES SCREEN,URINE NEGATIVE (NEGATIVE); CANNABINOID SCREEN,URINE POSITIVE (NEGATIVE); COCAINE SCREEN,URINE NEGATIVE (NEGATIVE); METHADONE SCREEN, URINE NEGATIVE (NEGATIVE); OPIATE SCREEN,URINE NEGATIVE (NEGATIVE)
[2020-01-09 00:33] LABS: PHENCYCLIDINE SCREEN,URINE NEGATIVE (NEGATIVE)
[2020-01-09 01:45] VITALS: BP 120/67
[2020-01-09] MEDS ORDERED: PETROLATUM,WHITE 28 GM JELLY TP PRN (07:45)
[2020-01-09] MEDS ORDERED: ALBUTEROL SULFATE HFA 90 MCG/PUFF 8 GM INHALER IH PRN (07:45)
[2020-01-09] MEDS ORDERED: MAGNESIUM HYDROXIDE SUSPENSION 30 ML UDCUP PO PRN (07:45)
[2020-01-09] MEDS ORDERED: BACITRACIN 28 GM OINTMENT TP PRN (07:45)
[2020-01-09] MEDS ORDERED: CloNIDine HCL 0.1 MG TABLET PO PRN (07:45)
[2020-01-09] MEDS ORDERED: OMEPRAZOLE 20 MG CAPSULE PO PRN (07:45)
[2020-01-09] MEDS ORDERED: DOCUSATE SODIUM 100 MG CAPSULE PO PRN (07:45)
[2020-01-09] MEDS ORDERED: LOPERAMIDE HCL 2 MG CAPSULE PO PRN (07:45)
[2020-01-09] MEDS ORDERED: BENZOCAINE/MENTHOL LOZENGE MM PRN (07:45)
[2020-01-09] MEDS ORDERED: ONDANSETRON HCL 4 MG TABLET PO PRN (07:45)
[2020-01-09] MEDS: MICONAZOLE NITRATE 2% 30 GM CREAM TP SCH (12:37)
[2020-01-09 16:18] VITALS: BP 110/64
[2020-01-09] MEDS: MUPIROCIN CALCIUM 2% 22 GM OINTMENT TP SCH (18:00)
[2020-01-09] MEDS: MAGNESIUM SULFATE 454 GM BOX TP SCH (18:00)
[2020-01-09] MEDS: DOXYCYCLINE HYCLATE 100 MG TABLET PO SCH (19:00)
[2020-01-09] MEDS ORDERED: OLANZapine 10 MG TABLET PO SCH (21:00)
[2020-01-09] MEDS: OLANZapine 10 MG TABLET PO SCH (21:06)
[2020-01-09] MEDS: DIVALPROEX SODIUM 500 MG DR TABLET PO SCH (21:06)
[2020-01-10 00:36] VITALS: BP 107/60
[2020-01-10 08:18] VITALS: BP 103/59
[2020-01-10] MEDS: MICONAZOLE NITRATE 2% 30 GM CREAM TP SCH (09:00)
[2020-01-10] MEDS: MAGNESIUM SULFATE 454 GM BOX TP SCH ×2 (09:00→17:00)
[2020-01-10] MEDS: MUPIROCIN CALCIUM 2% 22 GM OINTMENT TP SCH ×2 (09:00→18:50)
[2020-01-10] MEDS: DOXYCYCLINE HYCLATE 100 MG TABLET PO SCH ×2 (09:13→16:25)
[2020-01-10] MEDS: DIVALPROEX SODIUM 500 MG DR TABLET PO SCH ×2 (09:14→21:48)
[2020-01-10 16:50] VITALS: BP 108/62
[2020-01-10] MEDS: OLANZapine 10 MG TABLET PO SCH (21:48)
[2020-01-11 06:22] VITALS: BP 124/58
[2020-01-11 07:23] LABS: CHOL/HDL RATIO 2.9 (3.9-5.7); CHOLESTEROL 114 mg/dL (131-200); HCG,QUANTITATIVE < 1 mIU/mL (0-6); HDL CHOLESTEROL 39 mg/dL (40-60); LDL CHOL (CALC.) 61 mg/dL (0-130); TRIGLYCERIDES 68 mg/dL (15-150)
[2020-01-11 08:27] VITALS: BP 100/62
[2020-01-11] MEDS: DOXYCYCLINE HYCLATE 100 MG TABLET PO SCH ×2 (08:42→17:10)
[2020-01-11] MEDS: DIVALPROEX SODIUM 500 MG DR TABLET PO SCH ×2 (08:42→21:10)
[2020-01-11] MEDS: MUPIROCIN CALCIUM 2% 22 GM OINTMENT TP SCH ×2 (08:45→17:26)
[2020-01-11] MEDS: MAGNESIUM SULFATE 454 GM BOX TP SCH ×2 (08:45→17:00)
[2020-01-11] MEDS: MICONAZOLE NITRATE 2% 30 GM CREAM TP SCH (08:45)
[2020-01-11 16:22] VITALS: BP 107/60
[2020-01-11] MEDS: IBUPROFEN 600 MG TABLET PO PRN (17:18)
[2020-01-11] MEDS: OLANZapine 10 MG TABLET PO SCH (21:10)
[2020-01-12 01:58] VITALS: BP 120/78
[2020-01-12 08:19] VITALS: BP 100/62
[2020-01-12] MEDS: DOXYCYCLINE HYCLATE 100 MG TABLET PO SCH ×2 (08:29→17:08)
[2020-01-12] MEDS: DIVALPROEX SODIUM 500 MG DR TABLET PO SCH ×2 (08:29→21:07)
[2020-01-12] MEDS: MUPIROCIN CALCIUM 2% 22 GM OINTMENT TP SCH ×2 (08:34→17:00)
[2020-01-12 16:27] VITALS: BP 106/63
[2020-01-12] MEDS: LORazepam 2 MG TABLET PO PRN (17:22)
[2020-01-12] MEDS: IBUPROFEN 600 MG TABLET PO PRN (17:22)
[2020-01-12] MEDS: OLANZapine 10 MG TABLET PO SCH (21:07)
[2020-01-13 01:58] VITALS: BP 101/73
[2020-01-13 08:06] VITALS: BP 101/61
[2020-01-13] MEDS: DOXYCYCLINE HYCLATE 100 MG TABLET PO SCH ×2 (08:34→16:28)
[2020-01-13] MEDS: MUPIROCIN CALCIUM 2% 22 GM OINTMENT TP SCH ×2 (08:34→16:28)
[2020-01-13] MEDS: DIVALPROEX SODIUM 500 MG DR TABLET PO SCH ×2 (08:34→19:44)
[2020-01-13] MEDS: LORazepam 2 MG TABLET PO PRN ×2 (08:35→19:17)
[2020-01-13 16:38] VITALS: BP 108/75
[2020-01-13] MEDS: IBUPROFEN 600 MG TABLET PO PRN (19:18)
[2020-01-13] MEDS: OLANZapine 10 MG TABLET PO SCH (19:44)
[2020-01-14 01:32] VITALS: BP 101/78
[2020-01-14 08:19] VITALS: BP 101/62
[2020-01-14] MEDS: DIVALPROEX SODIUM 500 MG DR TABLET PO SCH ×2 (08:24→20:27)
[2020-01-14] MEDS: DOXYCYCLINE HYCLATE 100 MG TABLET PO SCH ×2 (08:24→16:54)
[2020-01-14] MEDS: MUPIROCIN CALCIUM 2% 22 GM OINTMENT TP SCH ×2 (08:25→16:54)
[2020-01-14 16:20] VITALS: BP 118/74
[2020-01-14] MEDS: OLANZapine 10 MG TABLET PO SCH (20:27)
[2020-01-15 03:38] VITALS: BP 111/68
[2020-01-15] MEDS: MULTIVITAMINS WITH MINERALS, THERAPEUTIC TABLET PO SCH (08:40)
[2020-01-15] MEDS: DOXYCYCLINE HYCLATE 100 MG TABLET PO SCH ×2 (08:40→16:08)
[2020-01-15] MEDS: FOLIC ACID 1 MG TABLET PO SCH (08:40)
[2020-01-15] MEDS: MUPIROCIN CALCIUM 2% 22 GM OINTMENT TP SCH ×2 (08:40→16:09)
[2020-01-15] MEDS: THIAMINE 100 MG TABLET PO SCH (08:41)
[2020-01-15] MEDS: DIVALPROEX SODIUM 500 MG DR TABLET PO SCH ×2 (08:41→20:22)
[2020-01-15 08:43] VITALS: BP 108/58
[2020-01-15] MEDS: LORazepam 2 MG TABLET PO PRN (16:44)
[2020-01-15] MEDS: ACETAMINOPHEN 325 MG TABLET PO PRN (16:44)
[2020-01-15 17:09] VITALS: BP 103/75
[2020-01-15] MEDS: OLANZapine 10 MG TABLET PO SCH (20:22)
[2020-01-16 01:32] VITALS: BP 101/70
[2020-01-16] MEDS: MULTIVITAMINS WITH MINERALS, THERAPEUTIC TABLET PO SCH (08:15)
[2020-01-16] MEDS: FOLIC ACID 1 MG TABLET PO SCH (08:15)
[2020-01-16] MEDS: DIVALPROEX SODIUM 500 MG DR TABLET PO SCH ×2 (08:15→20:08)
[2020-01-16] MEDS: MUPIROCIN CALCIUM 2% 22 GM OINTMENT TP SCH ×2 (08:15→16:34)
[2020-01-16] MEDS: DOXYCYCLINE HYCLATE 100 MG TABLET PO SCH ×2 (08:15→16:32)
[2020-01-16] MEDS: THIAMINE 100 MG TABLET PO SCH (08:15)
[2020-01-16 08:21] VITALS: BP 110/69
[2020-01-16 16:12] VITALS: BP 109/72
[2020-01-16] MEDS: ACETAMINOPHEN 325 MG TABLET PO PRN (16:32)
[2020-01-16] MEDS: LORazepam 2 MG TABLET PO PRN (16:32)
[2020-01-16] MEDS: OLANZapine 10 MG TABLET PO SCH (20:09)
[2020-01-17 06:18] VITALS: BP 99/60
[2020-01-17 08:04] VITALS: BP 101/65
[2020-01-17] MEDS: DIVALPROEX SODIUM 500 MG DR TABLET PO SCH ×2 (08:35→20:20)
[2020-01-17] MEDS: THIAMINE 100 MG TABLET PO SCH (08:35)
[2020-01-17] MEDS: FOLIC ACID 1 MG TABLET PO SCH (08:35)
[2020-01-17] MEDS: MULTIVITAMINS WITH MINERALS, THERAPEUTIC TABLET PO SCH (08:35)
[2020-01-17] MEDS: MUPIROCIN CALCIUM 2% 22 GM OINTMENT TP SCH ×2 (09:19→16:21)
[2020-01-17 12:22] VITALS: BP 110/72
[2020-01-17] MEDS: ACETAMINOPHEN 325 MG TABLET PO PRN (12:22)
[2020-01-17] MEDS: OLANZapine 5 MG RAPDIS TABLET PO PRN (16:05)
[2020-01-17] MEDS: LORazepam 2 MG TABLET PO PRN (16:05)
[2020-01-17 16:51] VITALS: BP 115/60
[2020-01-17] MEDS: OLANZapine 10 MG TABLET PO SCH (20:20)
[2020-01-18 05:59] VITALS: BP 101/60
[2020-01-18 08:09] VITALS: BP 106/75
[2020-01-18] MEDS: FOLIC ACID 1 MG TABLET PO SCH (08:48)
[2020-01-18] MEDS: DIVALPROEX SODIUM 500 MG DR TABLET PO SCH ×2 (08:48→20:53)
[2020-01-18] MEDS: MULTIVITAMINS WITH MINERALS, THERAPEUTIC TABLET PO SCH (08:48)
[2020-01-18] MEDS: MUPIROCIN CALCIUM 2% 22 GM OINTMENT TP SCH ×2 (09:00→17:07)
[2020-01-18] MEDS: THIAMINE 100 MG TABLET PO SCH (09:10)
[2020-01-18] MEDS: LORazepam 2 MG TABLET PO PRN ×2 (14:28→20:29)
[2020-01-18] MEDS: OLANZapine 5 MG RAPDIS TABLET PO PRN (14:28)
[2020-01-18] MEDS: IBUPROFEN 600 MG TABLET PO PRN (14:28)
[2020-01-18 16:27] VITALS: BP 114/71
[2020-01-18] MEDS: OLANZapine 10 MG TABLET PO SCH (20:54)
[2020-01-19 01:53] VITALS: BP 110/68
[2020-01-19 08:15] VITALS: BP 110/74
[2020-01-19] MEDS: DIVALPROEX SODIUM 500 MG DR TABLET PO SCH ×2 (08:33→20:10)
[2020-01-19] MEDS: FOLIC ACID 1 MG TABLET PO SCH (08:33)
[2020-01-19] MEDS: MULTIVITAMINS WITH MINERALS, THERAPEUTIC TABLET PO SCH (08:33)
[2020-01-19] MEDS: THIAMINE 100 MG TABLET PO SCH (08:33)
[2020-01-19] MEDS: MUPIROCIN CALCIUM 2% 22 GM OINTMENT TP SCH ×2 (08:34→16:52)
[2020-01-19] MEDS: IBUPROFEN 600 MG TABLET PO PRN (16:41)
[2020-01-19] MEDS: OLANZapine 5 MG RAPDIS TABLET PO PRN (16:41)
[2020-01-19 16:57] VITALS: BP 101/79
[2020-01-19] MEDS: ACETAMINOPHEN 325 MG TABLET PO PRN (18:36)
[2020-01-19] MEDS: OLANZapine 10 MG TABLET PO SCH (20:10)
[2020-01-20 01:17] VITALS: BP 108/74
[2020-01-20] MEDS: FOLIC ACID 1 MG TABLET PO SCH (08:07)
[2020-01-20] MEDS: DIVALPROEX SODIUM 500 MG DR TABLET PO SCH ×2 (08:07→20:18)
[2020-01-20] MEDS: THIAMINE 100 MG TABLET PO SCH (08:07)
[2020-01-20] MEDS: MULTIVITAMINS WITH MINERALS, THERAPEUTIC TABLET PO SCH (08:07)
[2020-01-20 08:16] VITALS: BP 100/52
[2020-01-20] MEDS: IBUPROFEN 600 MG TABLET PO PRN (13:52)
[2020-01-20 17:46] VITALS: BP 101/60
[2020-01-20] MEDS: ACETAMINOPHEN 325 MG TABLET PO PRN (17:46)
[2020-01-20] MEDS: OLANZapine 5 MG RAPDIS TABLET PO PRN (17:47)
[2020-01-20] MEDS: OLANZapine 10 MG TABLET PO SCH (20:18)
[2020-01-21] MEDS: MAG HYDROX/AL HYDROX/SIMETH ES 30 ML SUSPENSION UDCUP PO PRN (00:02)
[2020-01-21 04:09] VITALS: BP 102/65
[2020-01-21 08:27] VITALS: BP 101/56
[2020-01-21] MEDS: DIVALPROEX SODIUM 500 MG DR TABLET PO SCH ×2 (08:45→20:48)
[2020-01-21] MEDS: FOLIC ACID 1 MG TABLET PO SCH (08:45)
[2020-01-21] MEDS: MULTIVITAMINS WITH MINERALS, THERAPEUTIC TABLET PO SCH (08:45)
[2020-01-21] MEDS: THIAMINE 100 MG TABLET PO SCH (08:45)
[2020-01-21 12:03] VITALS: BP 114/68
[2020-01-21] MEDS: IBUPROFEN 600 MG TABLET PO PRN ×2 (12:03→18:59)
[2020-01-21 16:15] VITALS: BP 112/68
[2020-01-21] MEDS: ACETAMINOPHEN 325 MG TABLET PO PRN (16:18)
[2020-01-21] MEDS: OLANZapine 5 MG TABLET PO SCH (20:50)
[2020-01-21] MEDS: OLANZapine 10 MG TABLET PO SCH (20:50)
[2020-01-22 01:22] VITALS: BP 104/66
[2020-01-22 08:32] VITALS: BP 100/57
[2020-01-22] MEDS: THIAMINE 100 MG TABLET PO SCH (08:55)
[2020-01-22] MEDS: DIVALPROEX SODIUM 500 MG DR TABLET PO SCH ×2 (08:55→20:49)
[2020-01-22] MEDS: FOLIC ACID 1 MG TABLET PO SCH (08:55)
[2020-01-22] MEDS: MULTIVITAMINS WITH MINERALS, THERAPEUTIC TABLET PO SCH (08:55)
[2020-01-22 12:53] VITALS: BP 114/70
[2020-01-22] MEDS: IBUPROFEN 600 MG TABLET PO PRN ×2 (12:53→20:50)
[2020-01-22 16:30] VITALS: BP 114/63
[2020-01-22 17:44] VITALS: BP 114/63
[2020-01-22] MEDS: ACETAMINOPHEN 325 MG TABLET PO PRN (17:46)
[2020-01-22] MEDS: OLANZapine 5 MG RAPDIS TABLET PO PRN (18:34)
[2020-01-22] MEDS ORDERED: HALOPERIDOL LACTATE 5 MG/ML VIAL ONE (18:38)
[2020-01-22] MEDS ORDERED: LORazepam 2 MG/ML VIAL ONE (18:38)
[2020-01-22] MEDS ORDERED: HALOPERIDOL LACTATE 5 MG/ML VIAL IM ONE (18:45)
[2020-01-22] MEDS ORDERED: LORazepam 2 MG/ML VIAL IM ONE (18:45)
[2020-01-22] MEDS: OLANZapine 5 MG TABLET PO SCH (20:49)
[2020-01-22] MEDS: OLANZapine 10 MG TABLET PO SCH (20:49)
[2020-01-23 06:30] VITALS: BP 112/68
[2020-01-23 08:09] VITALS: BP 105/56
[2020-01-23] MEDS: DIVALPROEX SODIUM 500 MG DR TABLET PO SCH ×2 (08:34→20:08)
[2020-01-23] MEDS: FOLIC ACID 1 MG TABLET PO SCH (08:34)
[2020-01-23] MEDS: MULTIVITAMINS WITH MINERALS, THERAPEUTIC TABLET PO SCH (08:34)
[2020-01-23] MEDS: THIAMINE 100 MG TABLET PO SCH (08:34)
[2020-01-23 12:32] VITALS: BP 110/67
[2020-01-23] MEDS: ACETAMINOPHEN 325 MG TABLET PO PRN ×2 (12:34→17:04)
[2020-01-23 17:00] VITALS: BP 126/89
[2020-01-23] MEDS: OLANZapine 5 MG TABLET PO SCH (20:08)
[2020-01-23] MEDS: OLANZapine 10 MG TABLET PO SCH (20:11)
[2020-01-24 05:41] VITALS: BP 114/71
[2020-01-24 08:09] VITALS: BP 109/62
[2020-01-24] MEDS: FOLIC ACID 1 MG TABLET PO SCH (08:14)
[2020-01-24] MEDS: DIVALPROEX SODIUM 500 MG DR TABLET PO SCH ×2 (08:14→17:27)
[2020-01-24] MEDS: MULTIVITAMINS WITH MINERALS, THERAPEUTIC TABLET PO SCH (08:14)
[2020-01-24] MEDS: THIAMINE 100 MG TABLET PO SCH (08:14)
[2020-01-24] MEDS: OLANZapine 5 MG RAPDIS TABLET PO PRN ×2 (10:42→16:41)
[2020-01-24 16:33] VITALS: BP 114/70
[2020-01-24] MEDS: ACETAMINOPHEN 325 MG TABLET PO PRN (20:24)
[2020-01-24] MEDS: OLANZapine 10 MG TABLET PO SCH (20:25)
[2020-01-24] MEDS: OLANZapine 5 MG TABLET PO SCH (20:25)
[2020-01-25 03:23] VITALS: BP 111/68
[2020-01-25 08:16] VITALS: BP 119/72
[2020-01-25] MEDS: THIAMINE 100 MG TABLET PO SCH (08:21)
[2020-01-25] MEDS: FOLIC ACID 1 MG TABLET PO SCH (08:21)
[2020-01-25] MEDS: MULTIVITAMINS WITH MINERALS, THERAPEUTIC TABLET PO SCH (08:21)
[2020-01-25] MEDS: DIVALPROEX SODIUM 500 MG DR TABLET PO SCH ×3 (08:21→16:58)
[2020-01-25] MEDS: OLANZapine 5 MG RAPDIS TABLET PO PRN ×2 (08:22→16:58)
[2020-01-25 16:20] VITALS: BP 140/62
[2020-01-25] MEDS: IBUPROFEN 600 MG TABLET PO PRN (17:38)
[2020-01-25] MEDS ORDERED: HALOPERIDOL LACTATE 5 MG/ML VIAL IM ONE (18:45)
[2020-01-25] MEDS ORDERED: LORazepam 2 MG/ML VIAL IM ONE (18:45)
[2020-01-25] MEDS: OLANZapine 5 MG TABLET PO SCH (20:49)
[2020-01-25] MEDS: OLANZapine 10 MG TABLET PO SCH (21:41)
[2020-01-26 00:46] VITALS: BP 126/68
[2020-01-26 08:15] VITALS: BP 107/56
[2020-01-26] MEDS: OLANZapine 5 MG RAPDIS TABLET PO PRN (08:41)
[2020-01-26] MEDS: DIVALPROEX SODIUM 500 MG DR TABLET PO SCH ×3 (08:41→17:15)
[2020-01-26] MEDS: FOLIC ACID 1 MG TABLET PO SCH (08:41)
[2020-01-26] MEDS: MULTIVITAMINS WITH MINERALS, THERAPEUTIC TABLET PO SCH (08:41)
[2020-01-26] MEDS: THIAMINE 100 MG TABLET PO SCH (08:41)
[2020-01-26 17:00] VITALS: BP 102/60
[2020-01-26] MEDS: ACETAMINOPHEN 325 MG TABLET PO PRN (17:15)
[2020-01-26] MEDS: OLANZapine 10 MG TABLET PO SCH (21:00)
[2020-01-26] MEDS: OLANZapine 5 MG TABLET PO SCH (21:01)
[2020-01-26] MEDS: IBUPROFEN 600 MG TABLET PO PRN (23:56)
[2020-01-27 00:43] VITALS: BP 116/68
[2020-01-27 06:07] VITALS: BP 100/60
[2020-01-27] MEDS: TraMADol HCL 50 MG TABLET PO PRN ×2 (06:14→16:49)
[2020-01-27 08:08] VITALS: BP 94/55
[2020-01-27] MEDS: MULTIVITAMINS WITH MINERALS, THERAPEUTIC TABLET PO SCH (08:32)
[2020-01-27] MEDS: THIAMINE 100 MG TABLET PO SCH (08:32)
[2020-01-27] MEDS: DIVALPROEX SODIUM 500 MG DR TABLET PO SCH ×3 (08:32→16:47)
[2020-01-27] MEDS: FOLIC ACID 1 MG TABLET PO SCH (08:32)
[2020-01-27 16:40] VITALS: BP 117/62
[2020-01-27 17:09] VITALS: BP 117/62
[2020-01-27] MEDS: OLANZapine 10 MG TABLET PO SCH (20:22)
[2020-01-27] MEDS: OLANZapine 5 MG TABLET PO SCH (20:22)
[2020-01-28 01:27] VITALS: BP 114/65
[2020-01-28 08:08] VITALS: BP 110/68
[2020-01-28] MEDS: OLANZapine 5 MG RAPDIS TABLET PO PRN (08:20)
[2020-01-28] MEDS: DIVALPROEX SODIUM 500 MG DR TABLET PO SCH ×3 (08:20→16:14)
[2020-01-28] MEDS: THIAMINE 100 MG TABLET PO SCH (08:20)
[2020-01-28] MEDS: FOLIC ACID 1 MG TABLET PO SCH (08:20)
[2020-01-28] MEDS: MULTIVITAMINS WITH MINERALS, THERAPEUTIC TABLET PO SCH (08:20)
[2020-01-28 15:39] VITALS: BP 112/62
[2020-01-28] MEDS: IBUPROFEN 600 MG TABLET PO PRN (15:41)
[2020-01-28 16:41] VITALS: BP 111/61
[2020-01-28 18:14] VITALS: BP 119/67
[2020-01-28] MEDS: TraMADol HCL 50 MG TABLET PO PRN (18:14)
[2020-01-28] MEDS: OLANZapine 5 MG TABLET PO SCH (20:16)
[2020-01-28] MEDS: OLANZapine 10 MG TABLET PO SCH (20:16)
[2020-01-29 05:52] VITALS: BP 98/61
[2020-01-29 08:13] VITALS: BP 100/60
[2020-01-29] MEDS: OLANZapine 5 MG RAPDIS TABLET PO PRN (08:29)
[2020-01-29] MEDS: DIVALPROEX SODIUM 500 MG DR TABLET PO SCH ×3 (08:29→16:03)
[2020-01-29] MEDS: FOLIC ACID 1 MG TABLET PO SCH (08:32)
[2020-01-29] MEDS: MULTIVITAMINS WITH MINERALS, THERAPEUTIC TABLET PO SCH (08:33)
[2020-01-29] MEDS: THIAMINE 100 MG TABLET PO SCH (08:33)
[2020-01-29 16:05] VITALS: BP 110/60
[2020-01-29] MEDS: ACETAMINOPHEN 325 MG TABLET PO PRN (16:07)
[2020-01-29] MEDS: OLANZapine 5 MG TABLET PO SCH (19:49)
[2020-01-29] MEDS: OLANZapine 10 MG TABLET PO SCH (19:49)
[2020-01-30 00:35] VITALS: BP 107/65
[2020-01-30 08:21] VITALS: BP 104/66
[2020-01-30] MEDS: MULTIVITAMINS WITH MINERALS, THERAPEUTIC TABLET PO SCH (08:40)
[2020-01-30] MEDS: FOLIC ACID 1 MG TABLET PO SCH (08:40)
[2020-01-30] MEDS: DIVALPROEX SODIUM 500 MG DR TABLET PO SCH ×3 (08:40→16:09)
[2020-01-30] MEDS: THIAMINE 100 MG TABLET PO SCH (08:40)
[2020-01-30] MEDS: OLANZapine 5 MG RAPDIS TABLET PO PRN (08:40)
[2020-01-30 16:19] VITALS: BP 102/60
[2020-01-30] MEDS: TraMADol HCL 50 MG TABLET PO PRN (17:09)
[2020-01-30] MEDS: OLANZapine 5 MG TABLET PO SCH (20:44)
[2020-01-30] MEDS: OLANZapine 10 MG TABLET PO SCH (20:45)
[2020-01-31 01:18] VITALS: BP 105/76
[2020-01-31] MEDS: FOLIC ACID 1 MG TABLET PO SCH (08:14)
[2020-01-31] MEDS: THIAMINE 100 MG TABLET PO SCH (08:14)
[2020-01-31] MEDS: DIVALPROEX SODIUM 500 MG DR TABLET PO SCH ×3 (08:14→16:53)
[2020-01-31] MEDS: MULTIVITAMINS WITH MINERALS, THERAPEUTIC TABLET PO SCH (08:14)
[2020-01-31 08:40] VITALS: BP 126/71
[2020-01-31 13:00] VITALS: BP 111/58
[2020-01-31] MEDS: ACETAMINOPHEN 325 MG TABLET PO PRN (13:03)
[2020-01-31 16:16] VITALS: BP 106/62
[2020-01-31] MEDS: TraMADol HCL 50 MG TABLET PO PRN (19:26)
[2020-01-31] MEDS: OLANZapine 10 MG TABLET PO SCH (20:22)
[2020-01-31] MEDS: OLANZapine 5 MG TABLET PO SCH (20:22)
[2020-02-01 05:22] VITALS: BP 100/65
[2020-02-01] MEDS: DIVALPROEX SODIUM 500 MG DR TABLET PO SCH ×3 (08:30→16:24)
[2020-02-01] MEDS: THIAMINE 100 MG TABLET PO SCH (08:30)
[2020-02-01] MEDS: FOLIC ACID 1 MG TABLET PO SCH (08:30)
[2020-02-01] MEDS: MULTIVITAMINS WITH MINERALS, THERAPEUTIC TABLET PO SCH (08:30)
[2020-02-01 08:33] VITALS: BP 100/54
[2020-02-01] MEDS: IBUPROFEN 600 MG TABLET PO PRN (12:23)
[2020-02-01 16:46] VITALS: BP 104/56
[2020-02-01 18:36] VITALS: BP 104/63
[2020-02-01] MEDS: TraMADol HCL 50 MG TABLET PO PRN (18:36)
[2020-02-01] MEDS: OLANZapine 10 MG TABLET PO SCH (20:10)
[2020-02-01] MEDS: OLANZapine 5 MG TABLET PO SCH (20:10)
[2020-02-02 04:42] VITALS: BP 102/64
[2020-02-02] MEDS: MULTIVITAMINS WITH MINERALS, THERAPEUTIC TABLET PO SCH (08:04)
[2020-02-02] MEDS: DIVALPROEX SODIUM 500 MG DR TABLET PO SCH ×3 (08:04→16:46)
[2020-02-02] MEDS: FOLIC ACID 1 MG TABLET PO SCH (08:04)
[2020-02-02] MEDS: THIAMINE 100 MG TABLET PO SCH (08:04)
[2020-02-02 08:13] VITALS: BP 109/59
[2020-02-02] MEDS: OLANZapine 5 MG RAPDIS TABLET PO PRN (11:58)
[2020-02-02 16:06] VITALS: BP 127/60
[2020-02-02] MEDS: OLANZapine 5 MG TABLET PO SCH (20:13)
[2020-02-02] MEDS: OLANZapine 10 MG TABLET PO SCH (20:13)
[2020-02-03 00:25] VITALS: BP 116/66
[2020-02-03] MEDS: FOLIC ACID 1 MG TABLET PO SCH (08:07)
[2020-02-03] MEDS: MULTIVITAMINS WITH MINERALS, THERAPEUTIC TABLET PO SCH (08:07)
[2020-02-03] MEDS: DIVALPROEX SODIUM 500 MG DR TABLET PO SCH ×3 (08:07→16:37)
[2020-02-03] MEDS: THIAMINE 100 MG TABLET PO SCH (08:07)
[2020-02-03] MEDS: OLANZapine 5 MG RAPDIS TABLET PO PRN ×2 (08:08→17:12)
[2020-02-03 08:20] VITALS: BP 112/74
[2020-02-03 16:06] VITALS: BP 108/57
[2020-02-03] MEDS: IBUPROFEN 600 MG TABLET PO PRN (17:11)
[2020-02-03] MEDS: TraMADol HCL 50 MG TABLET PO PRN (19:36)
[2020-02-03] MEDS: OLANZapine 10 MG TABLET PO SCH (20:13)
[2020-02-03] MEDS: OLANZapine 5 MG TABLET PO SCH (20:14)
[2020-02-04 06:39] VITALS: BP 117/72
[2020-02-04] MEDS: DIVALPROEX SODIUM 500 MG DR TABLET PO SCH ×3 (08:07→16:22)
[2020-02-04] MEDS: MULTIVITAMINS WITH MINERALS, THERAPEUTIC TABLET PO SCH (08:08)
[2020-02-04] MEDS: THIAMINE 100 MG TABLET PO SCH (08:08)
[2020-02-04] MEDS: FOLIC ACID 1 MG TABLET PO SCH (08:08)
[2020-02-04] MEDS: OLANZapine 5 MG RAPDIS TABLET PO PRN ×2 (08:08→16:22)
[2020-02-04 08:22] VITALS: BP 100/56
[2020-02-04 09:00] VITALS: BP 108/74
[2020-02-04 16:18] VITALS: BP 112/68
[2020-02-04] MEDS: IBUPROFEN 600 MG TABLET PO PRN (16:23)
[2020-02-04] MEDS: OLANZapine 5 MG TABLET PO SCH (20:08)
[2020-02-04] MEDS: OLANZapine 10 MG TABLET PO SCH (20:08)
[2020-02-05 00:40] VITALS: BP 105/74
[2020-02-05 08:00] VITALS: BP 111/65
[2020-02-05] MEDS: OLANZapine 5 MG RAPDIS TABLET PO PRN ×2 (08:34→18:42)
[2020-02-05] MEDS: FOLIC ACID 1 MG TABLET PO SCH (08:34)
[2020-02-05] MEDS: DIVALPROEX SODIUM 500 MG DR TABLET PO SCH ×3 (08:34→16:30)
[2020-02-05] MEDS: MULTIVITAMINS WITH MINERALS, THERAPEUTIC TABLET PO SCH (08:34)
[2020-02-05] MEDS: THIAMINE 100 MG TABLET PO SCH (08:35)
[2020-02-05 16:05] VITALS: BP 115/67
[2020-02-05] MEDS: IBUPROFEN 600 MG TABLET PO PRN (16:30)
[2020-02-05] MEDS: TraMADol HCL 50 MG TABLET PO PRN (18:43)
[2020-02-05] MEDS: ACETAMINOPHEN 325 MG TABLET PO PRN (19:10)
[2020-02-05] MEDS: OLANZapine 5 MG TABLET PO SCH (20:08)
[2020-02-05] MEDS: OLANZapine 10 MG TABLET PO SCH (20:08)
[2020-02-06 05:15] VITALS: BP 116/70
[2020-02-06 08:25] VITALS: BP 101/59
[2020-02-06] MEDS: THIAMINE 100 MG TABLET PO SCH (08:29)
[2020-02-06] MEDS: MULTIVITAMINS WITH MINERALS, THERAPEUTIC TABLET PO SCH (08:29)
[2020-02-06] MEDS: DIVALPROEX SODIUM 500 MG DR TABLET PO SCH ×3 (08:29→16:43)
[2020-02-06] MEDS: FOLIC ACID 1 MG TABLET PO SCH (08:29)
[2020-02-06 12:21] VITALS: BP 111/67
[2020-02-06] MEDS: TraMADol HCL 50 MG TABLET PO PRN (12:21)
[2020-02-06] MEDS: OLANZapine 5 MG RAPDIS TABLET PO PRN (12:21)
[2020-02-06 16:09] VITALS: BP 109/63
[2020-02-06] MEDS: OLANZapine 10 MG TABLET PO SCH (20:14)
[2020-02-06] MEDS: OLANZapine 5 MG TABLET PO SCH (20:14)
[2020-02-07 04:00] VITALS: BP 102/68
[2020-02-07 08:37] VITALS: BP 106/51
[2020-02-07] MEDS: DIVALPROEX SODIUM 500 MG DR TABLET PO SCH ×3 (09:55→16:37)
[2020-02-07] MEDS: OLANZapine 5 MG RAPDIS TABLET PO PRN (09:55)
[2020-02-07] MEDS: THIAMINE 100 MG TABLET PO SCH (09:56)
[2020-02-07] MEDS: FOLIC ACID 1 MG TABLET PO SCH (09:56)
[2020-02-07] MEDS: MULTIVITAMINS WITH MINERALS, THERAPEUTIC TABLET PO SCH (09:56)
[2020-02-07 16:18] VITALS: BP 100/60
[2020-02-07] MEDS: ACETAMINOPHEN 325 MG TABLET PO PRN (18:28)
[2020-02-07] MEDS: OLANZapine 10 MG TABLET PO SCH (20:19)
[2020-02-07] MEDS: OLANZapine 5 MG TABLET PO SCH (20:19)
[2020-02-07 20:35] VITALS: BP 104/75
[2020-02-07] MEDS: TraMADol HCL 50 MG TABLET PO PRN (20:37)
[2020-02-08 00:17] VITALS: BP 100/78
[2020-02-08 08:16] VITALS: BP 108/59
[2020-02-08] MEDS: FOLIC ACID 1 MG TABLET PO SCH (08:32)
[2020-02-08] MEDS: DIVALPROEX SODIUM 500 MG DR TABLET PO SCH ×3 (08:32→16:41)
[2020-02-08] MEDS: MULTIVITAMINS WITH MINERALS, THERAPEUTIC TABLET PO SCH (08:32)
[2020-02-08] MEDS: OLANZapine 5 MG RAPDIS TABLET PO PRN ×2 (08:33→17:38)
[2020-02-08] MEDS: THIAMINE 100 MG TABLET PO SCH (08:33)
[2020-02-08 16:19] VITALS: BP 133/63
[2020-02-08] MEDS: TraMADol HCL 50 MG TABLET PO PRN (17:38)
[2020-02-08] MEDS: OLANZapine 10 MG TABLET PO SCH (20:04)
[2020-02-08] MEDS: OLANZapine 5 MG TABLET PO SCH (20:04)
[2020-02-09 00:53] VITALS: BP 128/68
[2020-02-09] MEDS: DIVALPROEX SODIUM 500 MG DR TABLET PO SCH ×3 (08:14→16:12)
[2020-02-09] MEDS: THIAMINE 100 MG TABLET PO SCH (08:14)
[2020-02-09] MEDS: MULTIVITAMINS WITH MINERALS, THERAPEUTIC TABLET PO SCH (08:14)
[2020-02-09] MEDS: FOLIC ACID 1 MG TABLET PO SCH (08:14)
[2020-02-09 08:17] VITALS: BP 105/55
[2020-02-09] MEDS: OLANZapine 5 MG RAPDIS TABLET PO PRN (12:40)
[2020-02-09 16:08] VITALS: BP 111/63
[2020-02-09] MEDS: ACETAMINOPHEN 325 MG TABLET PO PRN (17:15)
[2020-02-09] MEDS: OLANZapine 5 MG TABLET PO SCH (20:08)
[2020-02-09] MEDS: OLANZapine 10 MG TABLET PO SCH (20:09)
[2020-02-09 20:40] VITALS: BP 118/74
[2020-02-09] MEDS: IBUPROFEN 600 MG TABLET PO PRN (21:01)
[2020-02-10 00:05] VITALS: BP 113/73
[2020-02-10] MEDS: OLANZapine 5 MG RAPDIS TABLET PO PRN ×2 (01:48→22:29)
[2020-02-10] MEDS: TraMADol HCL 50 MG TABLET PO PRN (01:48)
[2020-02-10] MEDS: DIVALPROEX SODIUM 500 MG DR TABLET PO SCH ×3 (08:06→16:20)
[2020-02-10] MEDS: MULTIVITAMINS WITH MINERALS, THERAPEUTIC TABLET PO SCH (08:06)
[2020-02-10] MEDS: THIAMINE 100 MG TABLET PO SCH (08:07)
[2020-02-10] MEDS: FOLIC ACID 1 MG TABLET PO SCH (08:07)
[2020-02-10 08:12] VITALS: BP 101/64
[2020-02-10] MEDS ORDERED: DiphenhydrAMINE HCL 50 MG/ML VIAL ONE (15:58)
[2020-02-10] MEDS ORDERED: LORazepam 2 MG/ML VIAL ONE (15:58)
[2020-02-10] MEDS ORDERED: HALOPERIDOL LACTATE 5 MG/ML VIAL ONE (15:58)
[2020-02-10 16:15] VITALS: BP 115/85
[2020-02-10] MEDS ORDERED: LORazepam 2 MG/ML VIAL IM ONE (16:15)
[2020-02-10] MEDS ORDERED: DiphenhydrAMINE HCL 50 MG/ML VIAL IM ONE (16:15)
[2020-02-10] MEDS ORDERED: HALOPERIDOL LACTATE 5 MG/ML VIAL IM ONE (16:15)
[2020-02-10] MEDS: ACETAMINOPHEN 325 MG TABLET PO PRN (20:17)
[2020-02-10] MEDS: OLANZapine 10 MG TABLET PO SCH (20:17)
[2020-02-10] MEDS: OLANZapine 5 MG TABLET PO SCH (20:17)
[2020-02-10 20:18] VITALS: BP 106/69
[2020-02-11 03:45] VITALS: BP 101/71
[2020-02-11 08:00] VITALS: BP 106/64
[2020-02-11] MEDS: DIVALPROEX SODIUM 500 MG DR TABLET PO SCH ×3 (08:12→16:36)
[2020-02-11] MEDS: FOLIC ACID 1 MG TABLET PO SCH (08:12)
[2020-02-11] MEDS: MULTIVITAMINS WITH MINERALS, THERAPEUTIC TABLET PO SCH (08:12)
[2020-02-11] MEDS: THIAMINE 100 MG TABLET PO SCH (08:13)
[2020-02-11] MEDS ORDERED: TUBERCULIN, PURIFIED PROTEIN DERIVATIVE 5 TU/0.1 ML SYRINGE ID ONE (11:30)
[2020-02-11 16:05] VITALS: BP 109/64
[2020-02-11] MEDS: ACETAMINOPHEN 325 MG TABLET PO PRN (17:03)
[2020-02-11 18:02] VITALS: BP_SYST 105; BP_DIAS 35; BP_DIAS 65
[2020-02-11] MEDS: OLANZapine 10 MG TABLET PO SCH (20:47)
[2020-02-11] MEDS: OLANZapine 5 MG TABLET PO SCH (20:47)
[2020-02-11] MEDS: TraMADol HCL 50 MG TABLET PO PRN (21:32)
[2020-02-11 21:33] VITALS: BP 115/72
[2020-02-12 04:22] VITALS: BP 109/78
[2020-02-12] MEDS: MULTIVITAMINS WITH MINERALS, THERAPEUTIC TABLET PO SCH (08:08)
[2020-02-12] MEDS: FOLIC ACID 1 MG TABLET PO SCH (08:08)
[2020-02-12] MEDS: THIAMINE 100 MG TABLET PO SCH (08:08)
[2020-02-12] MEDS: DIVALPROEX SODIUM 500 MG DR TABLET PO SCH ×3 (08:08→16:42)
[2020-02-12 08:17] VITALS: BP 101/59
[2020-02-12] MEDS: OLANZapine 5 MG RAPDIS TABLET PO PRN ×2 (12:18→20:21)
[2020-02-12 16:04] VITALS: BP 110/60
[2020-02-12] MEDS: MAG HYDROX/AL HYDROX/SIMETH ES 30 ML SUSPENSION UDCUP PO PRN (18:08)
[2020-02-12] MEDS: IBUPROFEN 600 MG TABLET PO PRN (18:08)
[2020-02-12] MEDS: OLANZapine 5 MG TABLET PO SCH (19:58)
[2020-02-12] MEDS: OLANZapine 10 MG TABLET PO SCH (19:58)
[2020-02-12] MEDS: TraMADol HCL 50 MG TABLET PO PRN (20:21)
[2020-02-13 00:24] VITALS: BP 101/60
[2020-02-13 08:23] VITALS: BP 103/63
[2020-02-13] MEDS: FOLIC ACID 1 MG TABLET PO SCH (08:25)
[2020-02-13] MEDS: MULTIVITAMINS WITH MINERALS, THERAPEUTIC TABLET PO SCH (08:25)
[2020-02-13] MEDS: THIAMINE 100 MG TABLET PO SCH (08:26)
[2020-02-13] MEDS: DIVALPROEX SODIUM 500 MG DR TABLET PO SCH ×3 (08:26→16:13)
[2020-02-13] MEDS: OLANZapine 5 MG RAPDIS TABLET PO PRN (14:41)
[2020-02-13 16:06] VITALS: BP 115/61
[2020-02-13] MEDS: OLANZapine 10 MG TABLET PO SCH (20:05)
[2020-02-13] MEDS: OLANZapine 5 MG TABLET PO SCH (20:05)
[2020-02-13] MEDS: MAG HYDROX/AL HYDROX/SIMETH ES 30 ML SUSPENSION UDCUP PO PRN (20:59)
[2020-02-14 01:01] VITALS: BP 109/69
[2020-02-14] MEDS: MULTIVITAMINS WITH MINERALS, THERAPEUTIC TABLET PO SCH (08:15)
[2020-02-14] MEDS: THIAMINE 100 MG TABLET PO SCH (08:15)
[2020-02-14] MEDS: DIVALPROEX SODIUM 500 MG DR TABLET PO SCH ×3 (08:15→17:03)
[2020-02-14] MEDS: FOLIC ACID 1 MG TABLET PO SCH (08:15)
[2020-02-14 08:32] VITALS: BP 100/56
[2020-02-14] MEDS: IBUPROFEN 600 MG TABLET PO PRN ×2 (12:51→22:03)
[2020-02-14 17:22] VITALS: BP 106/55
[2020-02-14] MEDS: ACETAMINOPHEN 325 MG TABLET PO PRN (18:22)
[2020-02-14] MEDS: OLANZapine 10 MG TABLET PO SCH (20:11)
[2020-02-14] MEDS: OLANZapine 5 MG TABLET PO SCH (20:11)
[2020-02-15 05:19] VITALS: BP 101/68
[2020-02-15 08:11] VITALS: BP 107/63
[2020-02-15] MEDS: THIAMINE 100 MG TABLET PO SCH (08:27)
[2020-02-15] MEDS: FOLIC ACID 1 MG TABLET PO SCH (08:27)
[2020-02-15] MEDS: DIVALPROEX SODIUM 500 MG DR TABLET PO SCH ×3 (08:27→17:03)
[2020-02-15] MEDS: MULTIVITAMINS WITH MINERALS, THERAPEUTIC TABLET PO SCH (08:27)
[2020-02-15] MEDS: OLANZapine 5 MG RAPDIS TABLET PO PRN ×2 (11:04→20:31)
[2020-02-15] MEDS: IBUPROFEN 600 MG TABLET PO PRN (11:04)
[2020-02-15 16:15] VITALS: BP 100/69
[2020-02-15] MEDS: OLANZapine 10 MG TABLET PO SCH (20:11)
[2020-02-15] MEDS: OLANZapine 5 MG TABLET PO SCH (20:12)
[2020-02-16 01:12] VITALS: BP 104/57
[2020-02-16] MEDS: DIVALPROEX SODIUM 500 MG DR TABLET PO SCH ×3 (08:12→16:17)
[2020-02-16] MEDS: THIAMINE 100 MG TABLET PO SCH (08:12)
[2020-02-16] MEDS: FOLIC ACID 1 MG TABLET PO SCH (08:12)
[2020-02-16] MEDS: MULTIVITAMINS WITH MINERALS, THERAPEUTIC TABLET PO SCH (08:12)
[2020-02-16 08:28] VITALS: BP 109/61
[2020-02-16] MEDS: OLANZapine 5 MG RAPDIS TABLET PO PRN ×2 (09:49→17:12)
[2020-02-16 16:07] VITALS: BP 100/71
[2020-02-16] MEDS: IBUPROFEN 600 MG TABLET PO PRN (17:12)
[2020-02-16] MEDS: OLANZapine 10 MG TABLET PO SCH (20:24)
[2020-02-16] MEDS: OLANZapine 5 MG TABLET PO SCH (20:24)
[2020-02-16] MEDS: ACETAMINOPHEN 325 MG TABLET PO PRN (21:27)
[2020-02-17] MEDS ORDERED: TUBERCULIN, PURIFIED PROTEIN DERIVATIVE 5 TU/0.1 ML SYRINGE ID ONE (00:15)
[2020-02-17 00:53] VITALS: BP 102/80
[2020-02-17] MEDS: DIVALPROEX SODIUM 500 MG DR TABLET PO SCH ×3 (08:14→16:57)
[2020-02-17] MEDS: FOLIC ACID 1 MG TABLET PO SCH (08:14)
[2020-02-17] MEDS: MULTIVITAMINS WITH MINERALS, THERAPEUTIC TABLET PO SCH (08:14)
[2020-02-17] MEDS: THIAMINE 100 MG TABLET PO SCH (08:15)
[2020-02-17 08:33] VITALS: BP 105/59
[2020-02-17] MEDS: OLANZapine 5 MG RAPDIS TABLET PO PRN ×2 (13:07→17:38)
[2020-02-17 16:06] VITALS: BP 106/60
[2020-02-17] MEDS: OLANZapine 5 MG TABLET PO SCH (20:06)
[2020-02-17] MEDS: OLANZapine 10 MG TABLET PO SCH (20:07)
[2020-02-17] MEDS: IBUPROFEN 600 MG TABLET PO PRN (20:50)
[2020-02-18 05:30] VITALS: BP 110/58
[2020-02-18] MEDS: DIVALPROEX SODIUM 500 MG DR TABLET PO SCH ×3 (07:59→17:20)
[2020-02-18] MEDS: MULTIVITAMINS WITH MINERALS, THERAPEUTIC TABLET PO SCH (07:59)
[2020-02-18] MEDS: FOLIC ACID 1 MG TABLET PO SCH (07:59)
[2020-02-18] MEDS: THIAMINE 100 MG TABLET PO SCH (07:59)
[2020-02-18 08:13] VITALS: BP 135/65
[2020-02-18] MEDS: OLANZapine 5 MG RAPDIS TABLET PO PRN (13:05)
[2020-02-18 16:08] VITALS: BP 109/76
[2020-02-18] MEDS: IBUPROFEN 600 MG TABLET PO PRN (18:48)
[2020-02-18] MEDS: OLANZapine 5 MG TABLET PO SCH (20:01)
[2020-02-18] MEDS: OLANZapine 10 MG TABLET PO SCH (20:02)
[2020-02-18 20:55] VITALS: BP 111/74
[2020-02-18] MEDS: TraMADol HCL 50 MG TABLET PO PRN (20:58)
[2020-02-19 00:56] VITALS: BP 105/74
[2020-02-19] MEDS: THIAMINE 100 MG TABLET PO SCH (08:14)
[2020-02-19] MEDS: DIVALPROEX SODIUM 500 MG DR TABLET PO SCH ×3 (08:14→16:14)
[2020-02-19] MEDS: MULTIVITAMINS WITH MINERALS, THERAPEUTIC TABLET PO SCH (08:14)
[2020-02-19] MEDS: FOLIC ACID 1 MG TABLET PO SCH (08:14)
[2020-02-19 08:22] VITALS: BP 105/64
[2020-02-19] MEDS: OLANZapine 5 MG RAPDIS TABLET PO PRN ×2 (12:21→18:37)
[2020-02-19] MEDS ORDERED: LORazepam 2 MG TABLET PO ONE (13:15)
[2020-02-19 16:30] VITALS: BP 108/68
[2020-02-19] MEDS: OLANZapine 10 MG TABLET PO SCH (19:56)
[2020-02-19] MEDS: OLANZapine 5 MG TABLET PO SCH (19:56)
[2020-02-19] MEDS: IBUPROFEN 600 MG TABLET PO PRN (19:57)
[2020-02-19] MEDS: TraMADol HCL 50 MG TABLET PO PRN (21:47)
[2020-02-20 05:45] VITALS: BP 110/65
[2020-02-20 08:17] VITALS: BP 118/83
[2020-02-20 08:19] VITALS: BP 118/83
[2020-02-20] MEDS: FOLIC ACID 1 MG TABLET PO SCH (08:37)
[2020-02-20] MEDS: MULTIVITAMINS WITH MINERALS, THERAPEUTIC TABLET PO SCH (08:37)
[2020-02-20] MEDS: DIVALPROEX SODIUM 500 MG DR TABLET PO SCH ×3 (08:37→17:07)
[2020-02-20] MEDS: THIAMINE 100 MG TABLET PO SCH (08:55)
[2020-02-20 14:31] VITALS: BP 100/68
[2020-02-20] MEDS: IBUPROFEN 600 MG TABLET PO PRN (14:31)
[2020-02-20 16:18] VITALS: BP 117/60
[2020-02-20] MEDS: TraMADol HCL 50 MG TABLET PO PRN (17:14)
[2020-02-20 18:14] VITALS: BP 108/65
[2020-02-20] MEDS: OLANZapine 10 MG TABLET PO SCH (20:38)
[2020-02-20] MEDS: OLANZapine 5 MG TABLET PO SCH (20:40)
[2020-02-21 00:38] VITALS: BP 98/63
[2020-02-21] MEDS: THIAMINE 100 MG TABLET PO SCH (08:10)
[2020-02-21] MEDS: DIVALPROEX SODIUM 500 MG DR TABLET PO SCH ×3 (08:10→16:17)
[2020-02-21] MEDS: FOLIC ACID 1 MG TABLET PO SCH (08:11)
[2020-02-21] MEDS: MULTIVITAMINS WITH MINERALS, THERAPEUTIC TABLET PO SCH (08:11)
[2020-02-21 08:37] VITALS: BP 100/63
[2020-02-21] MEDS: OLANZapine 5 MG RAPDIS TABLET PO PRN ×2 (12:29→22:36)
[2020-02-21] MEDS: ACETAMINOPHEN 325 MG TABLET PO PRN (18:45)
[2020-02-21 19:20] VITALS: BP 103/61
[2020-02-21] MEDS: OLANZapine 5 MG TABLET PO SCH (20:08)
[2020-02-21] MEDS: OLANZapine 10 MG TABLET PO SCH (20:08)
[2020-02-21] MEDS: IBUPROFEN 600 MG TABLET PO PRN (22:36)
[2020-02-22 01:29] VITALS: BP 100/78
[2020-02-22 08:21] VITALS: BP 119/84
[2020-02-22] MEDS: MULTIVITAMINS WITH MINERALS, THERAPEUTIC TABLET PO SCH (08:35)
[2020-02-22] MEDS: DIVALPROEX SODIUM 500 MG DR TABLET PO SCH ×3 (08:35→16:09)
[2020-02-22] MEDS: THIAMINE 100 MG TABLET PO SCH (08:35)
[2020-02-22] MEDS: FOLIC ACID 1 MG TABLET PO SCH (08:35)
[2020-02-22] MEDS: OLANZapine 5 MG RAPDIS TABLET PO PRN (12:33)
[2020-02-22 16:05] VITALS: BP 102/57
[2020-02-22] MEDS: OLANZapine 5 MG TABLET PO SCH (20:34)
[2020-02-22] MEDS: ZOLPIDEM TARTRATE 10 MG TABLET PO PRN (20:34)
[2020-02-22] MEDS: OLANZapine 10 MG TABLET PO SCH (20:34)
[2020-02-22] MEDS: IBUPROFEN 600 MG TABLET PO PRN (20:59)
[2020-02-23 00:12] VITALS: BP 120/73
[2020-02-23] MEDS: OLANZapine 5 MG RAPDIS TABLET PO PRN ×2 (00:48→12:14)
[2020-02-23] MEDS: ACETAMINOPHEN 325 MG TABLET PO PRN (00:48)
[2020-02-23 08:13] VITALS: BP 100/59
[2020-02-23] MEDS: THIAMINE 100 MG TABLET PO SCH (08:57)
[2020-02-23] MEDS: FOLIC ACID 1 MG TABLET PO SCH (08:57)
[2020-02-23] MEDS: MULTIVITAMINS WITH MINERALS, THERAPEUTIC TABLET PO SCH (08:57)
[2020-02-23] MEDS: DIVALPROEX SODIUM 500 MG DR TABLET PO SCH ×3 (08:57→16:30)
[2020-02-23 16:10] VITALS: BP 118/79
[2020-02-23] MEDS: OLANZapine 5 MG TABLET PO SCH (20:08)
[2020-02-23] MEDS: OLANZapine 10 MG TABLET PO SCH (20:08)
[2020-02-23 21:13] VITALS: BP 122/82
[2020-02-23] MEDS: IBUPROFEN 600 MG TABLET PO PRN (21:13)
[2020-02-23] MEDS: ZOLPIDEM TARTRATE 10 MG TABLET PO PRN (22:47)
[2020-02-23] MEDS: MAG HYDROX/AL HYDROX/SIMETH ES 30 ML SUSPENSION UDCUP PO PRN (23:52)
[2020-02-24 00:26] VITALS: BP 118/67
[2020-02-24 08:06] LABS: BASOPHILS % (AUTO) 0.7 % (0.0-2.0); EOSINOPHILS % (AUTO) 3.3 % (1.0-6.0); HEMATOCRIT 33.4 % (36-46); HEMOGLOBIN 11.4 g/dL (12.0-16.0); LYMPHOCYTES # (AUTO) 2.5 K/uL (1.0-4.8); LYMPHOCYTES % (AUTO) 43.2 % (22.0-44.0); MEAN CORPUSCULAR HEMOGLOBIN 32.3 pg (26.0-34.0); MEAN CORPUSCULAR HGB CONC 34.1 G/dL (31.0-37.0); MEAN CORPUSCULAR VOLUME 95 fL (80-100); MONOCYTES # (AUTO) 0.7 K/uL (0.1-1.0); MONOCYTES % (AUTO) 12.1 % (2.0-9.0); NEUTROPHILS # (AUTO) 2.4 K/uL (1.8-7.7); NEUTROPHILS % (AUTO) 40.7 % (40.0-70.0); PLATELET COUNT (AUTO) 259 K/uL (150-450); RED BLOOD CELL COUNT(AUTO) 3.53 MIL/uL (4.00-5.20); RED CELL DISTRIBUTION WIDTH 15.3 % (11.5-14.5)
[2020-02-24 08:09] VITALS: BP 104/64
[2020-02-24] MEDS: MULTIVITAMINS WITH MINERALS, THERAPEUTIC TABLET PO SCH (08:10)
[2020-02-24] MEDS: FOLIC ACID 1 MG TABLET PO SCH (08:10)
[2020-02-24] MEDS: DIVALPROEX SODIUM 500 MG DR TABLET PO SCH ×3 (08:11→16:52)
[2020-02-24] MEDS: THIAMINE 100 MG TABLET PO SCH (08:11)
[2020-02-24 08:30] LABS: ALANINE AMINOTRANSFERASE 21 U/L (12-78); ALBUMIN 3.3 g/dL (3.4-5.0); ALKALINE PHOSPHATASE 46 U/L (46-116); ANION GAP 3 mmol/L (8-16); ASPARTATE AMINOTRANSFERASE 12 U/L (15-37); BILIRUBIN,TOTAL 0.2 mg/dL (0.1-1.0); CALCIUM, TOTAL 8.6 mg/dL (8.8-10.5); CARBON DIOXIDE 33 mmol/L (22-29); CHLORIDE 104 mmol/L (98-107); CHOL/HDL RATIO 4.5 (3.9-5.7); CHOLESTEROL 189 mg/dL (131-200); CREATININE 0.67 mg/dL (0.60-1.30); GLOMERULAR FILTR. RATE CALC > 60 mL/min (>60); GLUCOSE,RANDOM 94 mg/dL (70-110); HDL CHOLESTEROL 42 mg/dL (40-60); HEMOGLOBIN A1C 5.2 % (3.8-5.6); LDL CHOL (CALC.) 120 mg/dL (0-130); PHOSPHORUS 4.3 mg/dL (2.5-4.9); POTASSIUM 3.9 mmol/L (3.5-5.1); SODIUM SERUM 140 mmol/L (136-145); THYROID STIMULATING HORMONE 1.49 uIU/mL (0.36-3.74); TOTAL PROTEIN, SERUM 6.7 g/dL (6.4-8.2); TRIGLYCERIDES 136 mg/dL (15-150); UREA NITROGEN, BLOOD 21 mg/dL (7-18)
[2020-02-24 15:05] VITALS: BP 110/69
[2020-02-24] MEDS: OLANZapine 5 MG RAPDIS TABLET PO PRN (15:05)
[2020-02-24] MEDS: ACETAMINOPHEN 325 MG TABLET PO PRN ×2 (15:05→19:50)
[2020-02-24 16:11] VITALS: BP 100/71
[2020-02-24] MEDS: OLANZapine 5 MG TABLET PO SCH (20:03)
[2020-02-24] MEDS: OLANZapine 10 MG TABLET PO SCH (20:13)
[2020-02-24] MEDS: ZOLPIDEM TARTRATE 10 MG TABLET PO PRN (21:05)
[2020-02-24] MEDS: IBUPROFEN 600 MG TABLET PO PRN (21:09)
[2020-02-24 21:13] VITALS: BP 101/72
[2020-02-25 05:49] VITALS: BP 110/70
[2020-02-25 08:23] VITALS: BP 105/64
[2020-02-25] MEDS: FOLIC ACID 1 MG TABLET PO SCH (08:34)
[2020-02-25] MEDS: DIVALPROEX SODIUM 500 MG DR TABLET PO SCH ×3 (08:34→16:08)
[2020-02-25] MEDS: MULTIVITAMINS WITH MINERALS, THERAPEUTIC TABLET PO SCH (08:34)
[2020-02-25] MEDS: THIAMINE 100 MG TABLET PO SCH (08:34)
[2020-02-25] MEDS: OLANZapine 5 MG RAPDIS TABLET PO PRN ×3 (12:23→23:45)
[2020-02-25 16:04] VITALS: BP 106/59
[2020-02-25] MEDS: IBUPROFEN 600 MG TABLET PO PRN (17:47)
[2020-02-25] MEDS: OLANZapine 5 MG TABLET PO SCH (20:21)
[2020-02-25] MEDS: ZOLPIDEM TARTRATE 10 MG TABLET PO PRN (20:22)
[2020-02-25] MEDS: OLANZapine 10 MG TABLET PO SCH (20:22)
[2020-02-25] MEDS: MAG HYDROX/AL HYDROX/SIMETH ES 30 ML SUSPENSION UDCUP PO PRN (23:10)
[2020-02-25] MEDS: TraMADol HCL 50 MG TABLET PO PRN (23:45)
[2020-02-26 00:13] VITALS: BP 117/68
[2020-02-26] MEDS: MULTIVITAMINS WITH IRON TABLET PO SCH (06:31)
[2020-02-26 08:14] VITALS: BP 107/69
[2020-02-26] MEDS: FOLIC ACID 1 MG TABLET PO SCH (08:35)
[2020-02-26] MEDS: THIAMINE 100 MG TABLET PO SCH (08:35)
[2020-02-26] MEDS: DIVALPROEX SODIUM 500 MG DR TABLET PO SCH ×3 (08:35→16:38)
[2020-02-26] MEDS: OLANZapine 5 MG RAPDIS TABLET PO PRN (12:20)
[2020-02-26 16:32] VITALS: BP 104/57
[2020-02-26 17:12] VITALS: BP 104/57
[2020-02-26] MEDS: ACETAMINOPHEN 325 MG TABLET PO PRN (17:12)
[2020-02-26] MEDS: ZOLPIDEM TARTRATE 10 MG TABLET PO PRN (20:03)
[2020-02-26] MEDS: OLANZapine 5 MG TABLET PO SCH (20:03)
[2020-02-26] MEDS: OLANZapine 10 MG TABLET PO SCH (20:03)
[2020-02-26] MEDS: MAG HYDROX/AL HYDROX/SIMETH ES 30 ML SUSPENSION UDCUP PO PRN (22:40)
[2020-02-26 23:05] VITALS: BP 104/56
[2020-02-26] MEDS: IBUPROFEN 600 MG TABLET PO PRN (23:05)
[2020-02-27 06:18] VITALS: BP 101/58
[2020-02-27] MEDS: MULTIVITAMINS WITH IRON TABLET PO SCH (06:35)
[2020-02-27 08:14] VITALS: BP 111/60
[2020-02-27] MEDS: DIVALPROEX SODIUM 500 MG DR TABLET PO SCH ×3 (08:36→16:05)
[2020-02-27] MEDS: FOLIC ACID 1 MG TABLET PO SCH (08:36)
[2020-02-27] MEDS: THIAMINE 100 MG TABLET PO SCH (08:37)
[2020-02-27 16:06] VITALS: BP 110/71
[2020-02-27] MEDS: OLANZapine 5 MG TABLET PO SCH (20:18)
[2020-02-27] MEDS: OLANZapine 10 MG TABLET PO SCH (20:18)
[2020-02-27] MEDS: IBUPROFEN 600 MG TABLET PO PRN (22:15)
[2020-02-27] MEDS: MAG HYDROX/AL HYDROX/SIMETH ES 30 ML SUSPENSION UDCUP PO PRN (22:20)
[2020-02-27] MEDS: ZOLPIDEM TARTRATE 10 MG TABLET PO PRN (22:45)
[2020-02-28 00:23] VITALS: BP 101/18
[2020-02-28] MEDS: MULTIVITAMINS WITH IRON TABLET PO SCH (06:31)
[2020-02-28] MEDS: DIVALPROEX SODIUM 500 MG DR TABLET PO SCH ×3 (09:02→16:42)
[2020-02-28] MEDS: THIAMINE 100 MG TABLET PO SCH (09:02)
[2020-02-28] MEDS: FOLIC ACID 1 MG TABLET PO SCH (09:02)
[2020-02-28 09:24] VITALS: BP 102/64
[2020-02-28 16:45] VITALS: BP 122/84
[2020-02-28] MEDS: OLANZapine 10 MG TABLET PO SCH (20:29)
[2020-02-28] MEDS: OLANZapine 5 MG TABLET PO SCH (20:29)
[2020-02-28] MEDS: ZOLPIDEM TARTRATE 10 MG TABLET PO PRN (22:02)
[2020-02-28] MEDS: ACETAMINOPHEN 325 MG TABLET PO PRN (22:16)
[2020-02-29 03:55] VITALS: BP 104/70
[2020-02-29] MEDS: MULTIVITAMINS WITH IRON TABLET PO SCH (06:31)
[2020-02-29] MEDS: ACETAMINOPHEN 325 MG TABLET PO PRN (07:15)
[2020-02-29] MEDS: OLANZapine 5 MG RAPDIS TABLET PO PRN (07:51)
[2020-02-29] MEDS: TraMADol HCL 50 MG TABLET PO PRN (07:52)
[2020-02-29 08:13] VITALS: BP 108/51
[2020-02-29] MEDS: THIAMINE 100 MG TABLET PO SCH (08:33)
[2020-02-29] MEDS: DIVALPROEX SODIUM 500 MG DR TABLET PO SCH ×3 (08:34→16:01)
[2020-02-29] MEDS: FOLIC ACID 1 MG TABLET PO SCH (08:34)
[2020-02-29 16:05] VITALS: BP 104/64
[2020-02-29] MEDS: OLANZapine 5 MG TABLET PO SCH (20:04)
[2020-02-29] MEDS: OLANZapine 10 MG TABLET PO SCH (20:04)
[2020-02-29] MEDS: ZOLPIDEM TARTRATE 10 MG TABLET PO PRN (21:15)
[2020-03-01 06:21] VITALS: BP 99/60
[2020-03-01] MEDS: MULTIVITAMINS WITH IRON TABLET PO SCH (06:56)
[2020-03-01 08:23] VITALS: BP 106/62
[2020-03-01] MEDS: THIAMINE 100 MG TABLET PO SCH (09:22)
[2020-03-01] MEDS: FOLIC ACID 1 MG TABLET PO SCH (09:22)
[2020-03-01] MEDS: DIVALPROEX SODIUM 500 MG DR TABLET PO SCH ×3 (09:22→16:07)
[2020-03-01 15:55] VITALS: BP 116/60
[2020-03-01] MEDS: IBUPROFEN 600 MG TABLET PO PRN (15:56)
[2020-03-01 16:07] VITALS: BP 116/60
[2020-03-01] MEDS: TraMADol HCL 50 MG TABLET PO PRN (18:57)
[2020-03-01] MEDS: OLANZapine 5 MG TABLET PO SCH (20:20)
[2020-03-01] MEDS: OLANZapine 10 MG TABLET PO SCH (20:20)
[2020-03-01] MEDS: ZOLPIDEM TARTRATE 10 MG TABLET PO PRN (22:00)
[2020-03-02 01:05] VITALS: BP 111/65
[2020-03-02] MEDS: THIAMINE 100 MG TABLET PO SCH (08:08)
[2020-03-02] MEDS: FOLIC ACID 1 MG TABLET PO SCH (08:08)
[2020-03-02] MEDS: MULTIVITAMINS WITH IRON TABLET PO SCH (08:09)
[2020-03-02 08:12] VITALS: BP 100/64
[2020-03-02] MEDS: DIVALPROEX SODIUM 500 MG DR TABLET PO SCH ×3 (08:38→16:36)
[2020-03-02] MEDS ORDERED: MULTIVITAMINS WITH IRON TABLET PO SCH (09:00)
[2020-03-02 12:33] VITALS: BP 110/74
[2020-03-02] MEDS: OLANZapine 5 MG RAPDIS TABLET PO PRN (12:33)
[2020-03-02] MEDS: TraMADol HCL 50 MG TABLET PO PRN (12:33)
[2020-03-02 16:16] VITALS: BP 100/67
[2020-03-02] MEDS: OLANZapine 5 MG TABLET PO SCH (20:32)
[2020-03-02] MEDS: ACETAMINOPHEN 325 MG TABLET PO PRN (20:32)
[2020-03-02] MEDS: OLANZapine 10 MG TABLET PO SCH (20:32)
[2020-03-02] MEDS: ZOLPIDEM TARTRATE 10 MG TABLET PO PRN (21:04)
[2020-03-03 02:15] VITALS: BP 101/76
[2020-03-03] MEDS: MULTIVITAMINS WITH IRON TABLET PO SCH (06:51)
[2020-03-03] MEDS: DIVALPROEX SODIUM 500 MG DR TABLET PO SCH ×3 (08:08→16:07)
[2020-03-03] MEDS: FOLIC ACID 1 MG TABLET PO SCH (08:08)
[2020-03-03] MEDS: THIAMINE 100 MG TABLET PO SCH (08:08)
[2020-03-03 08:15] LABS: BASOPHILS % (AUTO) 0.4 % (0.0-2.0); EOSINOPHILS % (AUTO) 3.3 % (1.0-6.0); HEMATOCRIT 32.8 % (36-46); HEMOGLOBIN 11.2 g/dL (12.0-16.0); LYMPHOCYTES # (AUTO) 2.5 K/uL (1.0-4.8); LYMPHOCYTES % (AUTO) 45.4 % (22.0-44.0); MEAN CORPUSCULAR HEMOGLOBIN 32.2 pg (26.0-34.0); MEAN CORPUSCULAR HGB CONC 34.2 G/dL (31.0-37.0); MEAN CORPUSCULAR VOLUME 94 fL (80-100); MONOCYTES # (AUTO) 0.6 K/uL (0.1-1.0); MONOCYTES % (AUTO) 11.1 % (2.0-9.0); NEUTROPHILS # (AUTO) 2.1 K/uL (1.8-7.7); NEUTROPHILS % (AUTO) 39.8 % (40.0-70.0); PLATELET COUNT (AUTO) 267 K/uL (150-450); RED BLOOD CELL COUNT(AUTO) 3.48 MIL/uL (4.00-5.20); RED CELL DISTRIBUTION WIDTH 15.2 % (11.5-14.5)
[2020-03-03 08:18] VITALS: BP 100/61
[2020-03-03 08:35] LABS: ALANINE AMINOTRANSFERASE 17 U/L (12-78); ALKALINE PHOSPHATASE 45 U/L (46-116); ANION GAP 4 mmol/L (8-16); ASPARTATE AMINOTRANSFERASE 12 U/L (15-37); BILIRUBIN,TOTAL 0.2 mg/dL (0.1-1.0); CALCIUM, TOTAL 8.6 mg/dL (8.8-10.5); CARBON DIOXIDE 33 mmol/L (22-29); CHLORIDE 104 mmol/L (98-107); CREATININE 0.54 mg/dL (0.60-1.30); GLOMERULAR FILTR. RATE CALC > 60 mL/min (>60); GLUCOSE,RANDOM 95 mg/dL (70-110); PHOSPHORUS 4.3 mg/dL (2.5-4.9); POTASSIUM 3.9 mmol/L (3.5-5.1); SODIUM SERUM 141 mmol/L (136-145); TOTAL PROTEIN, SERUM 6.5 g/dL (6.4-8.2); UREA NITROGEN, BLOOD 20 mg/dL (7-18)
[2020-03-03] MEDS: OLANZapine 5 MG RAPDIS TABLET PO PRN (12:03)
[2020-03-03] MEDS: TraMADol HCL 50 MG TABLET PO PRN (13:15)
[2020-03-03 13:16] VITALS: BP 116/70
[2020-03-03 16:12] VITALS: BP 107/60
[2020-03-03] MEDS: OLANZapine 10 MG TABLET PO SCH (20:17)
[2020-03-03] MEDS: OLANZapine 5 MG TABLET PO SCH (20:17)
[2020-03-03] MEDS: ZOLPIDEM TARTRATE 10 MG TABLET PO PRN (20:17)
[2020-03-04 01:19] VITALS: BP 102/66
[2020-03-04] MEDS: MULTIVITAMINS WITH IRON TABLET PO SCH (06:54)
[2020-03-04 08:12] VITALS: BP 109/77
[2020-03-04] MEDS: DIVALPROEX SODIUM 500 MG DR TABLET PO SCH ×3 (08:19→16:25)
[2020-03-04] MEDS: THIAMINE 100 MG TABLET PO SCH (08:19)
[2020-03-04] MEDS: FOLIC ACID 1 MG TABLET PO SCH (08:19)
[2020-03-04] MEDS: OLANZapine 5 MG RAPDIS TABLET PO PRN (12:37)
[2020-03-04 16:07] VITALS: BP 118/64
[2020-03-04] MEDS: TraMADol HCL 50 MG TABLET PO PRN (17:06)
[2020-03-04] MEDS: OLANZapine 5 MG TABLET PO SCH (20:20)
[2020-03-04] MEDS: OLANZapine 10 MG TABLET PO SCH (20:20)
[2020-03-05 02:30] VITALS: BP 120/70
[2020-03-05] MEDS: ZOLPIDEM TARTRATE 10 MG TABLET PO PRN ×2 (02:51→21:10)
[2020-03-05] MEDS: MULTIVITAMINS WITH IRON TABLET PO SCH (06:42)
[2020-03-05] MEDS: DIVALPROEX SODIUM 500 MG DR TABLET PO SCH ×3 (08:03→16:03)
[2020-03-05] MEDS: FOLIC ACID 1 MG TABLET PO SCH (08:04)
[2020-03-05] MEDS: THIAMINE 100 MG TABLET PO SCH (08:04)
[2020-03-05 08:12] VITALS: BP 100/60
[2020-03-05 16:25] VITALS: BP 100/59
[2020-03-05] MEDS: OLANZapine 5 MG TABLET PO SCH (20:02)
[2020-03-05] MEDS: OLANZapine 10 MG TABLET PO SCH (20:02)
[2020-03-05 22:25] VITALS: BP 108/79
[2020-03-05] MEDS: TraMADol HCL 50 MG TABLET PO PRN (22:25)
[2020-03-06 03:53] VITALS: BP 102/73
[2020-03-06] MEDS: MULTIVITAMINS WITH IRON TABLET PO SCH (06:21)
[2020-03-06] MEDS: DIVALPROEX SODIUM 500 MG DR TABLET PO SCH ×3 (08:10→16:08)
[2020-03-06] MEDS: THIAMINE 100 MG TABLET PO SCH (08:10)
[2020-03-06] MEDS: OLANZapine 5 MG RAPDIS TABLET PO PRN (08:10)
[2020-03-06] MEDS: FOLIC ACID 1 MG TABLET PO SCH (08:10)
[2020-03-06 08:14] VITALS: BP 100/59
[2020-03-06] MEDS: IBUPROFEN 600 MG TABLET PO PRN (12:58)
[2020-03-06 16:02] VITALS: BP 117/63
[2020-03-06] MEDS: TraMADol HCL 50 MG TABLET PO PRN (19:47)
[2020-03-06] MEDS: OLANZapine 10 MG TABLET PO SCH (20:04)
[2020-03-06] MEDS: OLANZapine 5 MG TABLET PO SCH (20:04)
[2020-03-07 01:35] VITALS: BP 115/62
[2020-03-07] MEDS: MULTIVITAMINS WITH IRON TABLET PO SCH (06:41)
[2020-03-07 08:04] VITALS: BP 127/75
[2020-03-07] MEDS: FOLIC ACID 1 MG TABLET PO SCH (08:37)
[2020-03-07] MEDS: OLANZapine 5 MG RAPDIS TABLET PO PRN (08:37)
[2020-03-07] MEDS: DIVALPROEX SODIUM 500 MG DR TABLET PO SCH ×3 (08:37→16:11)
[2020-03-07] MEDS: THIAMINE 100 MG TABLET PO SCH (08:39)
[2020-03-07 16:11] VITALS: BP 107/62
[2020-03-07] MEDS: TraMADol HCL 50 MG TABLET PO PRN (20:07)
[2020-03-07] MEDS: OLANZapine 5 MG TABLET PO SCH (20:07)
[2020-03-07] MEDS: OLANZapine 10 MG TABLET PO SCH (20:07)
[2020-03-07] MEDS: ZOLPIDEM TARTRATE 10 MG TABLET PO PRN (22:51)
[2020-03-08 01:34] VITALS: BP 102/73
[2020-03-08] MEDS: MULTIVITAMINS WITH IRON TABLET PO SCH (06:44)
[2020-03-08 08:21] VITALS: BP 100/66
[2020-03-08] MEDS: THIAMINE 100 MG TABLET PO SCH (08:46)
[2020-03-08] MEDS: DIVALPROEX SODIUM 500 MG DR TABLET PO SCH ×3 (08:46→17:44)
[2020-03-08] MEDS: FOLIC ACID 1 MG TABLET PO SCH (08:46)
[2020-03-08 16:08] VITALS: BP 111/60
[2020-03-08 18:35] VITALS: BP 108/59
[2020-03-08] MEDS: IBUPROFEN 600 MG TABLET PO PRN (18:39)
[2020-03-08] MEDS: OLANZapine 10 MG TABLET PO SCH (20:24)
[2020-03-08] MEDS: OLANZapine 5 MG TABLET PO SCH (20:24)
[2020-03-08] MEDS: ZOLPIDEM TARTRATE 10 MG TABLET PO PRN (21:57)
[2020-03-08] MEDS: TraMADol HCL 50 MG TABLET PO PRN (23:11)
[2020-03-08 23:12] VITALS: BP 105/65
[2020-03-09 01:57] VITALS: BP 111/68
[2020-03-09] MEDS: MULTIVITAMINS WITH IRON TABLET PO SCH (06:43)
[2020-03-09] MEDS: THIAMINE 100 MG TABLET PO SCH (08:26)
[2020-03-09] MEDS: DIVALPROEX SODIUM 500 MG DR TABLET PO SCH ×3 (08:26→17:18)
[2020-03-09] MEDS: FOLIC ACID 1 MG TABLET PO SCH (08:26)
[2020-03-09 09:01] VITALS: BP 95/60
[2020-03-09 16:13] VITALS: BP 107/62
[2020-03-09] MEDS: OLANZapine 5 MG TABLET PO SCH (21:15)
[2020-03-09] MEDS: ZOLPIDEM TARTRATE 10 MG TABLET PO PRN (21:15)
[2020-03-09] MEDS: OLANZapine 10 MG TABLET PO SCH (21:15)
[2020-03-09] MEDS: TraMADol HCL 50 MG TABLET PO PRN (22:18)
[2020-03-09 22:19] VITALS: BP 111/72
[2020-03-09] MEDS: ACETAMINOPHEN 325 MG TABLET PO PRN (23:42)
[2020-03-10 04:08] VITALS: BP 113/74
[2020-03-10] MEDS: MULTIVITAMINS WITH IRON TABLET PO SCH (06:43)
[2020-03-10 08:26] VITALS: BP 100/60
[2020-03-10] MEDS: DIVALPROEX SODIUM 500 MG DR TABLET PO SCH ×3 (08:48→17:05)
[2020-03-10] MEDS: THIAMINE 100 MG TABLET PO SCH (08:48)
[2020-03-10] MEDS: FOLIC ACID 1 MG TABLET PO SCH (08:48)
[2020-03-10 16:08] VITALS: BP 115/60
[2020-03-10 17:53] VITALS: BP 109/63
[2020-03-10] MEDS: ACETAMINOPHEN 325 MG TABLET PO PRN (17:53)
[2020-03-10] MEDS: OLANZapine 5 MG TABLET PO SCH (20:36)
[2020-03-10] MEDS: OLANZapine 10 MG TABLET PO SCH (20:36)
[2020-03-10] MEDS: ZOLPIDEM TARTRATE 10 MG TABLET PO PRN (21:33)
[2020-03-10 23:45] VITALS: BP 103/60
[2020-03-10] MEDS: TraMADol HCL 50 MG TABLET PO PRN (23:48)
[2020-03-11] MEDS: OLANZapine 5 MG RAPDIS TABLET PO PRN ×2 (01:07→18:42)
[2020-03-11] MEDS: IBUPROFEN 600 MG TABLET PO PRN (01:28)
[2020-03-11] MEDS: MULTIVITAMINS WITH IRON TABLET PO SCH (06:52)
[2020-03-11 08:13] VITALS: BP 100/65
[2020-03-11] MEDS: DIVALPROEX SODIUM 500 MG DR TABLET PO SCH ×3 (08:30→17:00)
[2020-03-11] MEDS: THIAMINE 100 MG TABLET PO SCH (08:31)
[2020-03-11] MEDS: FOLIC ACID 1 MG TABLET PO SCH (08:31)
[2020-03-11 16:04] VITALS: BP 107/62
[2020-03-11] MEDS: TraMADol HCL 50 MG TABLET PO PRN (18:37)
[2020-03-11] MEDS: OLANZapine 10 MG TABLET PO SCH (20:20)
[2020-03-11] MEDS: OLANZapine 5 MG TABLET PO SCH (20:20)
[2020-03-12 02:45] VITALS: BP 102/68
[2020-03-12] MEDS: MULTIVITAMINS WITH IRON TABLET PO SCH (06:38)
[2020-03-12] MEDS: DIVALPROEX SODIUM 500 MG DR TABLET PO SCH ×3 (08:42→15:52)
[2020-03-12] MEDS: FOLIC ACID 1 MG TABLET PO SCH (08:42)
[2020-03-12] MEDS: THIAMINE 100 MG TABLET PO SCH (08:42)
[2020-03-12 09:00] VITALS: BP 100/65
[2020-03-12] MEDS: IBUPROFEN 600 MG TABLET PO PRN (15:52)
[2020-03-12 16:17] VITALS: BP 120/62
[2020-03-12] MEDS: OLANZapine 5 MG TABLET PO SCH (20:20)
[2020-03-12] MEDS: OLANZapine 10 MG TABLET PO SCH (20:20)
[2020-03-12] MEDS: ZOLPIDEM TARTRATE 10 MG TABLET PO PRN (21:39)
[2020-03-12] MEDS: TraMADol HCL 50 MG TABLET PO PRN (22:46)
[2020-03-13 06:37] VITALS: BP 107/51
[2020-03-13] MEDS: MULTIVITAMINS WITH IRON TABLET PO SCH (06:48)
[2020-03-13 08:05] VITALS: BP 107/64
[2020-03-13] MEDS: THIAMINE 100 MG TABLET PO SCH (08:23)
[2020-03-13] MEDS: DIVALPROEX SODIUM 500 MG DR TABLET PO SCH ×3 (08:23→17:06)
[2020-03-13] MEDS: FOLIC ACID 1 MG TABLET PO SCH (08:23)
[2020-03-13 08:31] LABS: % IRON SATURATION 18.6 % (22-44)
[2020-03-13 16:38] VITALS: BP 131/68
[2020-03-13 20:18] VITALS: BP 120/67
[2020-03-13 20:43] VITALS: BP 125/72
[2020-03-13] MEDS: ZOLPIDEM TARTRATE 10 MG TABLET PO PRN (20:43)
[2020-03-13] MEDS: OLANZapine 10 MG TABLET PO SCH (20:43)
[2020-03-13] MEDS: TraMADol HCL 50 MG TABLET PO PRN (20:43)
[2020-03-13] MEDS: OLANZapine 5 MG TABLET PO SCH (20:43)
[2020-03-14 03:47] VITALS: BP 112/58
[2020-03-14] MEDS: MULTIVITAMINS WITH IRON TABLET PO SCH (06:51)
[2020-03-14 08:23] VITALS: BP 107/59
[2020-03-14] MEDS: DIVALPROEX SODIUM 500 MG DR TABLET PO SCH ×3 (08:42→16:07)
[2020-03-14] MEDS: FOLIC ACID 1 MG TABLET PO SCH (08:42)
[2020-03-14] MEDS: THIAMINE 100 MG TABLET PO SCH (08:42)
[2020-03-14 16:17] VITALS: BP 129/89
[2020-03-14] MEDS: OLANZapine 10 MG TABLET PO SCH (20:10)
[2020-03-14] MEDS: OLANZapine 5 MG TABLET PO SCH (20:10)
[2020-03-15] MEDS: TraMADol HCL 50 MG TABLET PO PRN (00:01)
[2020-03-15] MEDS: OLANZapine 5 MG RAPDIS TABLET PO PRN ×2 (00:01→13:29)
[2020-03-15 00:16] VITALS: BP 105/61
[2020-03-15] MEDS: MULTIVITAMINS WITH IRON TABLET PO SCH (06:37)
[2020-03-15] MEDS: DIVALPROEX SODIUM 500 MG DR TABLET PO SCH ×3 (08:11→16:12)
[2020-03-15] MEDS: FOLIC ACID 1 MG TABLET PO SCH (08:11)
[2020-03-15] MEDS: THIAMINE 100 MG TABLET PO SCH (08:11)
[2020-03-15 08:23] VITALS: BP 100/62
[2020-03-15 13:00] VITALS: BP 110/72
[2020-03-15 17:06] VITALS: BP 106/64
[2020-03-15] MEDS: OLANZapine 10 MG TABLET PO SCH (20:38)
[2020-03-15] MEDS: OLANZapine 5 MG TABLET PO SCH (20:38)
[2020-03-16] MEDS: TraMADol HCL 50 MG TABLET PO PRN ×2 (00:06→22:41)
[2020-03-16] MEDS: OLANZapine 5 MG RAPDIS TABLET PO PRN (00:06)
[2020-03-16 01:13] VITALS: BP 116/69
[2020-03-16] MEDS: MULTIVITAMINS WITH IRON TABLET PO SCH (06:31)
[2020-03-16] MEDS: THIAMINE 100 MG TABLET PO SCH (08:23)
[2020-03-16] MEDS: FOLIC ACID 1 MG TABLET PO SCH (08:23)
[2020-03-16] MEDS: DIVALPROEX SODIUM 500 MG DR TABLET PO SCH ×3 (08:23→16:48)
[2020-03-16 08:37] VITALS: BP 100/61
[2020-03-16 16:45] VITALS: BP 112/69
[2020-03-16] MEDS: OLANZapine 5 MG TABLET PO SCH (20:34)
[2020-03-16] MEDS: OLANZapine 10 MG TABLET PO SCH (20:34)
[2020-03-16] MEDS: ZOLPIDEM TARTRATE 10 MG TABLET PO PRN (22:41)
[2020-03-17 01:25] VITALS: BP 107/62
[2020-03-17] MEDS: MULTIVITAMINS WITH IRON TABLET PO SCH (06:45)
[2020-03-17] MEDS: DIVALPROEX SODIUM 500 MG DR TABLET PO SCH ×3 (08:08→16:30)
[2020-03-17] MEDS: THIAMINE 100 MG TABLET PO SCH (08:08)
[2020-03-17] MEDS: FOLIC ACID 1 MG TABLET PO SCH (08:08)
[2020-03-17 08:31] VITALS: BP 100/63
[2020-03-17 10:00] VITALS: BP 108/74
[2020-03-17 16:17] VITALS: BP 103/66
[2020-03-17] MEDS: ACETAMINOPHEN 325 MG TABLET PO PRN (17:30)
[2020-03-17] MEDS: OLANZapine 5 MG TABLET PO SCH (20:39)
[2020-03-17] MEDS: OLANZapine 10 MG TABLET PO SCH (20:40)
[2020-03-17] MEDS: ZOLPIDEM TARTRATE 10 MG TABLET PO PRN (21:19)
[2020-03-17] MEDS: TraMADol HCL 50 MG TABLET PO PRN (21:19)
[2020-03-17 21:20] VITALS: BP 116/78
[2020-03-18 01:38] VITALS: BP 110/72
[2020-03-18] MEDS: MULTIVITAMINS WITH IRON TABLET PO SCH (06:30)
[2020-03-18 08:01] VITALS: BP 103/57
[2020-03-18] MEDS: DIVALPROEX SODIUM 500 MG DR TABLET PO SCH ×3 (08:14→16:51)
[2020-03-18] MEDS: FOLIC ACID 1 MG TABLET PO SCH (08:15)
[2020-03-18] MEDS: THIAMINE 100 MG TABLET PO SCH (08:15)
[2020-03-18 17:39] VITALS: BP 118/67
[2020-03-18] MEDS: OLANZapine 5 MG TABLET PO SCH (20:28)
[2020-03-18] MEDS: OLANZapine 10 MG TABLET PO SCH (20:28)
[2020-03-18] MEDS: IBUPROFEN 600 MG TABLET PO PRN (21:26)
[2020-03-18] MEDS: ZOLPIDEM TARTRATE 10 MG TABLET PO PRN (21:26)
[2020-03-19 00:44] VITALS: BP 114/73
[2020-03-19] MEDS: TraMADol HCL 50 MG TABLET PO PRN ×2 (00:47→23:48)
[2020-03-19] MEDS: MULTIVITAMINS WITH IRON TABLET PO SCH (06:41)
[2020-03-19 08:22] VITALS: BP 100/64
[2020-03-19] MEDS: FOLIC ACID 1 MG TABLET PO SCH (08:36)
[2020-03-19] MEDS: THIAMINE 100 MG TABLET PO SCH (08:36)
[2020-03-19] MEDS: DIVALPROEX SODIUM 500 MG DR TABLET PO SCH ×3 (08:36→17:54)
[2020-03-19 14:30] VITALS: BP 107/69
[2020-03-19 16:01] VITALS: BP 111/71
[2020-03-19] MEDS: IBUPROFEN 600 MG TABLET PO PRN (18:07)
[2020-03-19] MEDS: OLANZapine 5 MG TABLET PO SCH (21:06)
[2020-03-19] MEDS: OLANZapine 10 MG TABLET PO SCH (21:07)
[2020-03-19] MEDS: ZOLPIDEM TARTRATE 10 MG TABLET PO PRN (23:48)
[2020-03-20 02:04] VITALS: BP 102/77
[2020-03-20 08:15] VITALS: BP 100/60
[2020-03-20] MEDS: FOLIC ACID 1 MG TABLET PO SCH (08:17)
[2020-03-20] MEDS: MULTIVITAMINS WITH IRON TABLET PO SCH (08:17)
[2020-03-20] MEDS: DIVALPROEX SODIUM 500 MG DR TABLET PO SCH ×3 (08:18→16:16)
[2020-03-20] MEDS: THIAMINE 100 MG TABLET PO SCH (08:18)
[2020-03-20 12:35] VITALS: BP 115/71
[2020-03-20] MEDS: IBUPROFEN 600 MG TABLET PO PRN (12:35)
[2020-03-20 16:11] VITALS: BP 102/63
[2020-03-20] MEDS: OLANZapine 5 MG TABLET PO SCH (21:17)
[2020-03-20] MEDS: OLANZapine 10 MG TABLET PO SCH (21:17)
[2020-03-20] MEDS: ZOLPIDEM TARTRATE 10 MG TABLET PO PRN (22:18)
[2020-03-20] MEDS: TraMADol HCL 50 MG TABLET PO PRN (22:20)
[2020-03-21 01:01] VITALS: BP 100/65
[2020-03-21 08:22] VITALS: BP 103/57
[2020-03-21] MEDS: FOLIC ACID 1 MG TABLET PO SCH (08:57)
[2020-03-21] MEDS: DIVALPROEX SODIUM 500 MG DR TABLET PO SCH ×3 (08:57→16:40)
[2020-03-21] MEDS: MULTIVITAMINS WITH IRON TABLET PO SCH (08:57)
[2020-03-21] MEDS: THIAMINE 100 MG TABLET PO SCH (08:57)
[2020-03-21 16:47] VITALS: BP 101/64
[2020-03-21] MEDS: IBUPROFEN 600 MG TABLET PO PRN (18:44)
[2020-03-21 18:45] VITALS: BP 109/65
[2020-03-21] MEDS: OLANZapine 5 MG TABLET PO SCH (20:38)
[2020-03-21] MEDS: OLANZapine 10 MG TABLET PO SCH (20:38)
[2020-03-21] MEDS: TraMADol HCL 50 MG TABLET PO PRN (21:19)
[2020-03-21] MEDS: ZOLPIDEM TARTRATE 10 MG TABLET PO PRN (21:19)
[2020-03-22 00:46] VITALS: BP 105/69
[2020-03-22] MEDS: FOLIC ACID 1 MG TABLET PO SCH (08:00)
[2020-03-22] MEDS: DIVALPROEX SODIUM 500 MG DR TABLET PO SCH ×3 (08:00→16:05)
[2020-03-22] MEDS: MULTIVITAMINS WITH IRON TABLET PO SCH (08:00)
[2020-03-22] MEDS: THIAMINE 100 MG TABLET PO SCH (08:01)
[2020-03-22 08:26] VITALS: BP 100/59
[2020-03-22 12:47] VITALS: BP 104/63
[2020-03-22] MEDS: TraMADol HCL 50 MG TABLET PO PRN ×2 (12:47→21:10)
[2020-03-22 16:26] VITALS: BP 106/65
[2020-03-22] MEDS: OLANZapine 5 MG TABLET PO SCH (20:09)
[2020-03-22] MEDS: OLANZapine 10 MG TABLET PO SCH (20:09)
[2020-03-22 21:10] VITALS: BP 109/66
[2020-03-23 01:09] VITALS: BP 102/69
[2020-03-23] MEDS: MULTIVITAMINS WITH IRON TABLET PO SCH (06:21)
[2020-03-23] MEDS: THIAMINE 100 MG TABLET PO SCH (09:03)
[2020-03-23] MEDS: FOLIC ACID 1 MG TABLET PO SCH (09:03)
[2020-03-23] MEDS: DIVALPROEX SODIUM 500 MG DR TABLET PO SCH ×3 (09:03→16:36)
[2020-03-23 14:23] VITALS: BP 107/64
[2020-03-23 16:08] VITALS: BP 123/77
[2020-03-23] MEDS: OLANZapine 5 MG TABLET PO SCH (20:23)
[2020-03-23] MEDS: OLANZapine 10 MG TABLET PO SCH (20:23)
[2020-03-23 21:19] VITALS: BP 116/66
[2020-03-23] MEDS: ZOLPIDEM TARTRATE 10 MG TABLET PO PRN (21:19)
[2020-03-23] MEDS: TraMADol HCL 50 MG TABLET PO PRN (21:19)
[2020-03-24 01:15] VITALS: BP 120/69
[2020-03-24] MEDS: MULTIVITAMINS WITH IRON TABLET PO SCH (06:30)
[2020-03-24 08:38] VITALS: BP 101/52
[2020-03-24] MEDS: THIAMINE 100 MG TABLET PO SCH (09:56)
[2020-03-24] MEDS: DIVALPROEX SODIUM 500 MG DR TABLET PO SCH ×2 (09:56→13:57)
[2020-03-24] MEDS: FOLIC ACID 1 MG TABLET PO SCH (09:57)
== END 2020-03-24 13:00 | DRG 750 ==
LOC: EMS 21:50 → B3A 23:55
PROVIDERS: ADMIT Psychiatry & Neurology Psychiatry; ATTEND Psychiatry & Neurology Psychiatry
DX: F25.0 Schizoaffective disorder, bipolar type (principal); I10 Essential (primary) hypertension; K21.9 Gastro-esophageal reflux disease without esophagitis; M19.90 Unspecified osteoarthritis, unspecified site; R45.851 Suicidal ideations; K59.00 Constipation, unspecified; F41.9 Anxiety disorder, unspecified; G47.00 Insomnia, unspecified; F19.10 Other psychoactive substance abuse, uncomplicated; E03.9 Hypothyroidism, unspecified; Z59.0 Homelessness; Z79.899 Other long term (current) drug therapy; Z03.818 Encounter for observation for suspected exposure to other biological agents ruled out
CPT/HCPCS: 83036; 83540; 83550; 83735; 84100; 84443; 87081; 99291; G0480; J1200; J1630; J2060